=== PATIENT | female | born 1950 | race American Indian/Alaskan Native ===

== ENCOUNTER 2019-04-24 11:06 | Emergency (ER) | payer OTHER ==
[2019-04-24 11:25] VITALS: BMI 54.9
--- NOTE | 2019-04-24 12:31 | PDOC ---
Attending Attestation - Resident Resident Name: Christiano De La Paz - ED Attending Attestation I have performed the following: I have examined & evaluated the patient, The case was reviewed & discussed with the resident, I agree w/resident's findings & plan, Exceptions are as noted - HPI HPI: 04/24/19 12:29 68 yo F HTN, HLD, COPD, morbid obesity who present upon the recommendation of her PMD for assessment of her legs The patient has noted increased lower extremity edema for the past few weeks As a result, she had had blisters on the lower extremities A few weeks ago, she used a hunting knife to rupture the blisters Since then, the blisters have not fully healed She has used steroid creams, lidocaine cream and wrapped the legs Right leg seems more swollen than the left leg Pt contacted PMD who asked pt to come in to the ER to be assessed 04/24/19 12:32 - Physicial Exam PE: 04/24/19 12:30 GENERAL: The patient is in no acute distress, morbidly obese. HEAD: Normal EYES: PERRLA, EOMI, sclera anicteric, conjunctiva clear. ENT: Ears normal, nares patent, oropharynx clear without exudates. Moist mucous membranes. NECK: Normal range of motion, supple LUNGS: Breath sounds equal, clear to auscultation bilaterally. HEART:Regular rate and rhythm, JESUS ABDOMEN: Soft, nontender, No guarding, no rebound. EXTREMITIES: Normal range of motion, no edema. NEUROLOGICAL: Cranial nerves II through XII grossly intact. Normal speech. No focal neurological deficits. MUSCULOSKELETAL: no deformities SKIN: 3+ Edema right leg: several areas of open skin, clean bases, serosanguinous drainage, faint surrounding erythema of the skin Left leg with flesh colored macules around the leg, no erythema, no open skin, no drainage Feet are warm Cap refil <2sec Sensation in tact 04/24/19 12:57 - Medical Decision Making 04/24/19 13:01 68 yo F presenting with lower extremity edema, blisters which she ruptured which have not been healing No systemic signs of illness DD: Cellulitis, non healing wound (due to edema), DVT Will do: Labs, duplex, Contact PMD Will consider giving a dose of Lasix Will plan to discharge 04/24/19 14:58 U/S - no DVT Case reviewed with PMD: Requesting that pt be given additional Lasix Pt can be started on po abx He will see this patient in the office in follow up 04/24/19 16:33 Laboratory Tests 04/24/19 04/24/19 15:14 15:14 WBC 11.6 H Hgb 12.0 Hct 36.7 Plt Count 239 BUN 28.4 H Creatinine 0.8 B-Natriuretic Peptide 29.9
--- NOTE | 2019-04-24 13:06 | PDOC ---
History of Present Illness - General Stated Complaint: SENT BY PCP FOR WOUNDS,R/O INFECTION Time Seen by Provider: 04/24/19 12:09 - History of Present Illness Initial Comments: 04/24/19 12:55 HPI: 68 y/o F with hx of asthma, HLD, HTN, COPD, valvular regurg (doesnt know which valve) presents with right leg wound. She reports that over the past 2 months her LE edema has been worsening and not improved with her BP meds. She started developing blisters on her right leg filled with fluid and decided to pop them with an uncleaned hunting knife 2 weeks ago. Fluid and blood was evacuated but she denied any purulent drainage. She applied steroid and other creams and wrapped them with gauze but reported increased pruritis to the area. She states sometime her right leg appears more swollen than her left. She denies fever, chills, increased erythema, SOB, abd pain, n/v, foul odor Of note, she called her PCP yesterday for abx for her wound and when she stated she had "green" tinge he recommended immediate presentation to the ED PMHx: as noted above ROS: as noted SHx: Denies tobacco use; no alcohol use; no rec drugs Allergies: NKDA Past History - Past Medical History Allergies/Adverse Reactions: Allergies Allergy/AdvReac Type Severity Reaction Status Date / Time No Known Allergies Allergy Verified 04/24/19 11:26 Home Medications: Ambulatory Orders Fluticasone/Salmeterol [Advair 500-50 Diskus] PRN PRN 09/10/11 Montelukast Sodium [Singulair] 10 mg PO DAILY 09/10/11 Simvastatin [Zocor] 20 mg PO HS 09/10/11 Montelukast Na [Singulair -] 10 mg PO HS #0 tablet 11/27/12 Morphine *Sr* [Ms Contin -] 15 mg PO TID #0 tablet.sa 11/27/12 Paroxetine HCl [Paxil -] 20 mg PO DAILY #0 tablet 11/27/12 Pro Air 8.5 PRN PRN #0 11/27/12 Raloxifene HCl [Evista (Nf) -] 60 mg PO DAILY #0 tablet 11/27/12 Salmeterol/Fluticasone [Advair 500Mcg/50Mcg -] 1 inh IH DAILY PRN #0 inh Simvastatin [Zocor] 20 mg PO HS #0 tablet 11/27/12 levoFLOXacin [Levaquin] 250 mg PO DAILY #0 tablet 11/27/12 predniSONE [Deltasone -] 40 mg PO DAILY #0 tablet 11/27/12 Cephalexin [Keflex] 500 mg PO QID #27 capsule 04/24/19 Sulfamethoxazole/Trimethoprim [Bactrim Ds -] 2 tab PO BID #26 tablet 04/24/19 Anemia: Yes Asthma: Yes Cancer: No Cardiac Disorders: No CVA: No COPD: No CHF: No Dementia: No Diabetes: No GI Disorders: No Disorders: No HTN: Yes Hypercholesterolemia: Yes Liver Disease: No Seizures: No Thyroid Disease: No - Surgical History Abdominal Surgery: No Appendectomy: No Cardiac Surgery: No Cholecystectomy: No Lung Surgery: No Neurologic Surgery: No Orthopedic Surgery: Yes (RIGHT KNEE,LEFT SHOULDER) - Immunization History Immunization Up to Date: No - Suicide/Smoking/Psychosocial Hx Smoking Status: Yes Smoking History: Unknown if ever smoked Have you smoked in the past 12 months: No Number of Cigarettes Smoked Daily: 0 If you are a former smoker, when did you quit?: 1999 Information on smoking cessation initiated: No Hx Alcohol Use: No Drug/Substance Use Hx: No Substance Use Type: None Hx Substance Use Treatment: No Review of Systems - Review of Systems Comments:: 04/24/19 13:06 GENERAL/CONSTITUTIONAL: No fever or chills. No weakness. HEAD, EYES, EARS, NOSE AND THROAT: No change in vision. No ear pain or discharge. No sore throat. CARDIOVASCULAR: No chest pain or shortness of breath RESPIRATORY: No cough, wheezing, or hemoptysis. GASTROINTESTINAL: No nausea, vomiting, diarrhea or constipation. GENITOURINARY: No dysuria, frequency, or change in urination. MUSCULOSKELETAL: No joint or muscle swelling or pain. No neck or back pain. SKIN: + rash NEUROLOGIC: No headache, vertigo, loss of consciousness, or change in strength/ sensation. ENDOCRINE: No increased thirst. No abnormal weight change HEMATOLOGIC/LYMPHATIC: No anemia, easy bleeding, or history of blood clots. ALLERGIC/IMMUNOLOGIC: No hives or skin allergy. *Physical Exam - Vital Signs Last Vital Signs Temp Pulse Resp BP Pulse Ox 98.7 F 76 16 153/79 100 09/06/19 11:10 04/24/19 11:10 04/24/19 11:10 04/24/19 11:10 04/24/19 11:10 - Physical Exam Comments: 04/24/19 13:06 GENERAL: Awake, alert, and fully oriented, no acute distress, morbidly obese HEAD: No signs of trauma, normocephalic, atraumatic EYES: EOMI, sclera anicteric, conjunctiva clear ENT: Auricles normal inspection, hearing grossly normal, nares patent, oropharynx clear without exudates. Moist mucosa NECK: Normal ROM, no lymphadenopathy LUNGS: No increased work of breathing, symmetrical chest rise, clear to auscultation bilaterally, with coarse breath sounds in BL lower lung patiño HEART: Regular rate and rhythm, normal S1 and S2, systolic murmur, peripheral pulses 2+ and equal bilaterally. ABDOMEN: Soft, nontender, nondistended, normoactive bowel sounds. No guarding, no rebound. No masses EXTREMITIES: FROM NEUROLOGICAL: Cranial nerves II through XII grossly intact. Normal speech, normal gait, no focal sensorimotor deficits SKIN: R LE with skin breakdown over anterolateral leg as well as on posterior aspect with surrounding erythema, no active drainage or purulence, no lymphatic streaking, 2+ pulses throughout, 2+ pitting pedal edema, mildly tender to palpation ED Treatment Course - LABORATORY CBC & Chemistry Diagram: 04/24/19 15:14 04/24/19 15:14 Medical Decision Making - Medical Decision Making 04/24/19 13:10 68 y/o F with hx of asthma, HLD, HTN, COPD, valvular regurg (doesnt know which valve) presents with right leg wound x2 weeks after attempting to evacuate blisters with a hunting knife. -cbc, cmp, bnp -BL duplex -will treat empirically for cellulitis as well as administer Tdap booster *DC/Admit/Observation/Transfer Diagnosis at time of Disposition: Cellulitis Qualifiers: Site of cellulitis: extremity Site of cellulitis of extremity: lower extremity Laterality: right Qualified Code(s): L03.115 - Cellulitis of right lower limb - Discharge Dispostion Disposition: HOME Condition at time of disposition: Stable Decision to Admit order: No - Prescriptions Prescriptions: Cephalexin [Keflex] 500 mg PO QID #27 capsule Sulfamethoxazole/Trimethoprim [Bactrim Ds -] 2 tab PO BID #26 tablet - Referrals Referrals: Kevin Berkowitz [Primary Care Provider] - - Patient Instructions Printed Discharge Instructions: DI for Cellulitis -- Adult Additional Instructions: Additional Instructions: Please return to the emergency department with any new or worsening symptoms or concerns including redness or your right leg, worsening swelling of the right leg, significant pain on your leg, fainting, increased white drainage from the wounds. Please follow up with your primary care physician on your scheduled followup visit on SaturdayApr 28 Please take the 2 antibiotic medications as prescribed. Please keep your legs elevated whenever able. Please keep the wounds clean and dry and open to air. If wounds begin to drain clear fluid, you may apply gauze. - Post Discharge Activity
[2019-04-24 15:28] LABS: BASO % 0.6 % (0-2.0); HEMATOCRIT 36.7 % (32.4-45.2); MCH 30.6 pg (25.7-33.7); MCHC 32.6 g/dl (32.0-36.0); MEAN CELL VOLUME 93.7 fl (80-96); MEAN PLT VOLUME 8.8 fl (7.5-11.1); MONO % 6.9 % (3.8-10.2); NEUT % 65.5 % (42.8-82.8); PLATELET COUNT 239 K/MM3 (134-434); RBC 3.91 M/mm3 (3.60-5.2); RDW 14.1 % (11.6-15.6); WHITE BLOOD COUNT 11.6 K/mm3 (4.0-10.0)
[2019-04-24 16:07] LABS: BILIRUBIN,TOTAL 0.5 mg/dL (0.2-1); BLOOD UREA NITROGEN 28.4 mg/dL (7-18); CALCIUM 9.2 mg/dL (8.5-10.1); CREATININE 0.8 mg/dL (0.55-1.3); N-TERMINAL BNP 29.9 pg/ml (5-125); POTASSIUM 3.7 mmol/L (3.5-5.1); TOT PROT 7.6 g/dl (6.4-8.2)
[2019-04-24] MEDS ORDERED: SULFAMETHOXAZOLE/TRIMETHOPRIM 800MG/160MG D.S. TABLET PO ONE (16:18)
[2019-04-24] MEDS ORDERED: CEPHALEXIN MONOHYDRATE 500 MG CAPSULE (UD) PO ONE (16:19)
[2019-04-24] MEDS ORDERED: FUROSEMIDE 20 MG TABLET (FP) PO ONE (16:30)
[2019-04-24] MEDS ORDERED: DIPHTH,PERTUSS(ACELL),TET 0.5 ML DISP.SYRIN IM ONE ×2 (16:32→17:05)
[2019-04-24] MEDS ORDERED: FUROSEMIDE 40 MG TABLET (FP) ONE (17:02)
[2019-04-24] MEDS ORDERED: CEPHALEXIN MONOHYDRATE 500 MG CAPSULE (UD) ONE (17:02)
[2019-04-24] MEDS ORDERED: SULFAMETHOXAZOLE/TRIMETHOPRIM 800MG/160MG D.S. TABLET ONE (17:03)
[2019-04-24 17:23] VITALS: BP 138/67; PULSE 77; TEMP 97.7
== END 2019-04-24 17:24 | disposition home or self-care (01) ==
LOC: JER 11:06
PROC: 3E0234Z Introduction of Serum, Toxoid and Vaccine into Muscle, Percutaneous Approach (ICD-10-PCS; principal; 2019-04-24)
DX: L03.115 Cellulitis of right lower limb (principal); I10 Essential (primary) hypertension; E78.5 Hyperlipidemia, unspecified; J44.9 Chronic obstructive pulmonary disease, unspecified; J45.909 Unspecified asthma, uncomplicated
CPT/HCPCS: 36415; 80053; 83880; 85025; 90471; 90715; 93970-TC; 99282-25

== ENCOUNTER 2020-06-28 04:54 | Day surgery (SDC) | payer OTHER ==
[2020-06-27 12:22] VITALS: BMI 49.1
[2020-06-28] MEDS ORDERED: MIDAZOLAM HCL 2 MG/2 ML SINGLE DOSE VIAL ONE ×2 (12:47→14:57)
[2020-06-28] MEDS ORDERED: ceFAZolin SODIUM 1 GM VIAL ONE (12:50)
[2020-06-28] MEDS ORDERED: SODIUM CHLORIDE 0.9% P/F 10 ML VIAL IJ ONE (12:50)
[2020-06-28] MEDS ORDERED: LIDOCAINE HCL 1%, 10 MG/ML (20ML VIAL) ONE (14:37)
[2020-06-28] MEDS ORDERED: BUPIVACAINE HCL/PF 0.25% (2.5MG/ML) 10 ML VIAL ONE ×2 (14:37→15:32)
[2020-06-28] MEDS ORDERED: ceFAZolin SODIUM 1 GM VIAL IVPB ONE (14:58)
[2020-06-28] MEDS ORDERED: BUPIVACAINE HCL/PF 0.25% (2.5MG/ML) 10 ML VIAL IJ ONE ×2 (16:00→16:25)
[2020-06-28] MEDS ORDERED: LIDOCAINE HCL 1%, 10 MG/ML (20ML VIAL) NR ONE (16:25)
[2020-06-28] MEDS ORDERED: morphine SULFATE/PF 0.5 MG/ML (2cc Syringe - QUVA) ONE (16:43)
[2020-06-28] MEDS ORDERED: KETOROLAC TROMETHAMINE 30 MG/1 ML VIAL ONE (16:55)
[2020-06-28] MEDS ORDERED: KETOROLAC TROMETHAMINE 30 MG/1 ML VIAL IVPUSH ONE (16:58)
[2020-06-28] MEDS ORDERED: oxyCODONE HCL 5 MG TABLET PO PRN (17:51)
[2020-06-28] MEDS ORDERED: ONDANSETRON 4 MG/2 ML VIAL IVPUSH PRN (17:51)
[2020-06-28] MEDS ORDERED: PROMETHAZINE HCL 25 MG/1 ML VIAL IVPUSH PRN (17:51)
[2020-06-28] MEDS ORDERED: oxyCODONE HCL 5 MG TABLET ONE (17:53)
[2020-06-28] MEDS ORDERED: LACTATED RINGERS SOLUTION 1,000 ML IV SCH (18:00)
[2020-06-28 20:31] VITALS: BP 144/68; PULSE 89; TEMP 98
== END 2020-06-28 19:55 | disposition home or self-care (01) ==
LOC: JASU-SURG 04:54
PROVIDERS: ATTEND Physical Medicine & Rehabilitation
PROC: 01HY3MZ Insertion of Neurostimulator Lead into Peripheral Nerve, Percutaneous Approach (ICD-10-PCS; principal; 2020-06-28 11:30)
DX: M54.16 Radiculopathy, lumbar region (principal); M48.061 Spinal stenosis, lumbar region without neurogenic claudication; M54.5 Low back pain
CPT/HCPCS: 63650; C1897; 76000-TC-FY; 94760

== ENCOUNTER 2022-10-27 16:00 | Inpatient (IN) | payer OTHER ==
[2022-10-27] MEDS ORDERED: ACETAMINOPHEN 1000 MG/100 ML BAG IVPB ONE (18:05)
[2022-10-27] MEDS ORDERED: ACETAMINOPHEN INJECTION 100 ML IVPB ONE (18:13)
[2022-10-27] MEDS ORDERED: ALBUTEROL SO4 2.5/IPRATROPIUM 0.5 INH SOL 3 ML VIAL.NEB. NEB ONE (18:42)
[2022-10-27 18:57] LABS: BASO % 0.2 % (0-2.0); EOS % 0.1 % (0-4.5); HEMATOCRIT 32.9 % (32.4-45.2); HEMOGLOBIN 10.3 GM/dL (10.7-15.3); LYMPH % 7.9 % (8-40); MCHC 31.4 g/dl (32.0-36.0); MEAN CELL VOLUME 86.1 fl (80-96); MEAN PLT VOLUME 8.2 fl (7.5-11.1); MONO % 10.5 % (3.8-10.2); NEUT % 81.3 % (42.8-82.8); PLATELET COUNT 329 10^3/uL (134-434); RBC 3.82 M/mm3 (3.60-5.2); RDW 15.1 % (11.6-15.6); WHITE BLOOD COUNT 20.5 K/mm3 (4.0-10.0)
[2022-10-27 19:02] LABS: INR 1.48 (0.83-1.09); PROTHROMBIN TIME (PATIENT) 17.1 SEC (9.7-13.0)
[2022-10-27 19:05] LABS: ACTIVATED PTT 25.6 SECONDS (25.2-36.5); CALCIUM 8.4 mg/dL (8.5-10.1)
[2022-10-27 19:06] LABS: ALBUMIN 2.8 g/dl (3.4-5.0); BLOOD UREA NITROGEN 36.1 mg/dL (7-18)
[2022-10-27 19:09] LABS: CREATININE 1.2 mg/dL (0.55-1.3)
[2022-10-27 19:10] LABS: TOT PROT 7.2 g/dl (6.4-8.2)
[2022-10-27 19:14] LABS: N-TERMINAL BNP 840.4 pg/ml (5-125)
[2022-10-27] MEDS ORDERED: VANCOMYCIN 1 GM in D5W (PRE-DOCKED) 1,000 MG/250 ML IVPB ONE (19:19)
[2022-10-27] MEDS ORDERED: PIPERACILLIN/TAZOB 4.5 GM 4.5 GM in DEXTROSE 5%-WATER 100 ML IVPB ONE (19:19)
[2022-10-27] MEDS ORDERED: POTASSIUM CHLORIDE ORAL LIQUID 20 MEQ/15 ML PO ONE (19:25)
[2022-10-27 19:31] LABS: ANISOCYTOSIS 1+; MACROCYTOSIS 0
[2022-10-27 21:56] LABS: ERYTHROCYTE SEDIMENTATION RATE 94 mm/hr (0-30)
[2022-10-27] MEDS ORDERED: VANCOMYCIN/WATER FOR INJ (PEG) 1,000 MG/200 ML BAG IVPB ONE (22:31)
[2022-10-27] MEDS ORDERED: POTASSIUM CHLORIDE ORAL LIQUID 20 MEQ/15 ML ONE (22:31)
[2022-10-27] MEDS ORDERED: SODIUM CHLORIDE 0.9% 500 ML INFUS.BAG IV ONE ×2 (22:35→22:37)
[2022-10-27 22:37] LABS: EPI CELLS >36 /uL (0-25.1); HYALINE CASTS 2 /uL (0-3.1); PH,URINE 5.5 (5.0-8.0); URINE APPEARANCE TURBID; URINE BACTERIA >9,000 /uL (0-1359); URINE BILIRUBIN NEGATIVE (NEGATIVE); URINE COLOR DK YELLOW; URINE GLUCOSE (UA) NEGATIVE (NEGATIVE); URINE KETONE NEGATIVE (NEGATIVE); URINE LEUK ESTERASE 2+ (NEGATIVE); URINE NITRITE POSITIVE (NEGATIVE); URINE PROTEIN 1+ (NEGATIVE); URINE WBC 3034 /uL (0-25.8)
[2022-10-27 22:46] LABS: PHENCYCLIDINE,URINE NEGATIVE (NEGATIVE)
[2022-10-27 22:47] LABS: COCAINE, UR NEGATIVE (NEGATIVE); URINE BARBITURATES NEGATIVE (NEGATIVE)
[2022-10-27 22:48] LABS: METHADONE, UR NEGATIVE (NEGATIVE); OPIATES, URI POSITIVE (NEGATIVE); URINE AMPHETAMINES NEGATIVE (NEGATIVE); URINE BENZODIAZEPINES NEGATIVE (NEGATIVE)
[2022-10-27 22:51] LABS: URINE CRYSTALS NONE SEEN /hpf; URINE RBC 44.6 /uL (0-23.9); YEAST NONE SEEN (NEGATIVE)
[2022-10-28] MEDS ORDERED: LEVALBUTEROL HCL 0.63 MG/3 ML VIAL.NEB. IH PRN (00:30)
[2022-10-28] MEDS: methylPREDNISolone NA SUCC 125 MG/2 ML VIAL IVPB SCH ×2 (00:58→09:53)
[2022-10-28] MEDS ORDERED: methylPREDNISolone NA SUCC 40 MG/1 ML VIAL ONE (00:59)
[2022-10-28] MEDS: PIPERACILLIN/TAZOB 3.375 GM 3.375 GM in DEXTROSE 5%-WATER - 50 ML IVPB SCH ×3 (03:59→19:19)
[2022-10-28] MEDS ORDERED: PIPERACILLIN/TAZOB 3.375 GM 3.375 GM/50 ML BAG IVPB ONE ×3 (04:02→18:25)
[2022-10-28] MEDS ORDERED: HEPARIN NA (PORCINE) 5,000 UNITS/ML 1ML VIAL SQ SCH (06:00)
[2022-10-28] MEDS ORDERED: PREGABALIN 25 MG CAPSULE ONE ×2 (06:22→14:15)
[2022-10-28] MEDS: PREGABALIN 25 MG CAPSULE PO SCH ×3 (06:23→21:39)
[2022-10-28] MEDS ORDERED: HEPARIN NA (PORCINE) 5,000 UNITS/ML 1ML VIAL ONE (06:24)
[2022-10-28 07:11] LABS: HEMATOCRIT 31.1 % (32.4-45.2); MCH 27.4 pg (25.7-33.7); MEAN CELL VOLUME 85.4 fl (80-96); PLATELET COUNT 304 10^3/uL (134-434); RBC 3.65 M/mm3 (3.60-5.2)
[2022-10-28 07:37] LABS: CALCIUM 8.2 mg/dL (8.5-10.1)
[2022-10-28 07:38] LABS: ALBUMIN 2.4 g/dl (3.4-5.0); BLOOD UREA NITROGEN 31.2 mg/dL (7-18); MAGNESIUM 1.9 mg/dL (1.8-2.4)
[2022-10-28 07:41] LABS: CREATININE 0.8 mg/dL (0.55-1.3); PHOSPHOROUS 3.2 mg/dL (2.5-4.9)
[2022-10-28 07:42] LABS: TOT PROT 6.7 g/dl (6.4-8.2)
[2022-10-28 07:43] LABS: BILIRUBIN,TOTAL 0.9 mg/dL (0.2-1)
[2022-10-28] MEDS ORDERED: PIPERACILLIN/TAZOB 3.375 GM 3.375 GM in DEXTROSE 5%-WATER - 50 ML IVPB SCH (08:00)
[2022-10-28] MEDS ORDERED: CYCLOBENZAPRINE HCL 10 MG TABLET (FP) ONE (08:39)
[2022-10-28] MEDS ORDERED: PANTOPRAZOLE 40 MG TABLET PO ONE (08:39)
[2022-10-28] MEDS ORDERED: methylPREDNISolone NA SUCC 125 MG/2 ML VIAL ONE (08:40)
[2022-10-28] MEDS: PANTOPRAZOLE 40 MG TABLET PO SCH (09:52)
[2022-10-28] MEDS: CYCLOBENZAPRINE HCL 10 MG TABLET (FP) PO SCH ×2 (09:52→21:40)
[2022-10-28] MEDS ORDERED: VANCOMYCIN 1 GM in D5W (PRE-DOCKED) 1,000 MG/250 ML IVPB ONE (10:00)
[2022-10-28] MEDS ORDERED: VANCOMYCIN 1 GM in D5W (PRE-DOCKED) 1,000 MG/250 ML IVPB SCH (10:00)
[2022-10-28] MEDS ORDERED: VANCOMYCIN/WATER 2 GRAMS 2,000 MG/400 ML PIGGYBACK IVPB SCH ×2 (10:00)
[2022-10-28] MEDS ORDERED: FUROSEMIDE 40 MG/4 ML INJECTABLE VIAL IVPUSH ONE (14:00)
[2022-10-28] MEDS ORDERED: PREGABALIN 50 MG CAPSULE ONE (14:15)
[2022-10-28] MEDS ORDERED: ASPIRIN 81 MG CHEWABLE TABLETS ONE (14:16)
[2022-10-28] MEDS ORDERED: FUROSEMIDE 40 MG/4 ML INJECTABLE VIAL ONE (14:16)
[2022-10-28] MEDS ORDERED: LACTATED RINGERS SOLUTION 1,000 ML/1,000 ML INFUS.BAG IV SCH (15:00)
[2022-10-28] MEDS: ASPIRIN 81 MG CHEWABLE TABLETS PO SCH (15:00)
[2022-10-28] MEDS: SENNOSIDES 8.6MG TABLET (FP) PO SCH (21:39)
[2022-10-28] MEDS: NORTRIPTYLINE HCL 25 MG CAPSULE PO SCH (21:39)
[2022-10-28] MEDS: ATORVASTATIN CA 20 MG TABLET (FP) PO SCH (21:40)
[2022-10-29] MEDS: PIPERACILLIN/TAZOB 3.375 GM 3.375 GM in DEXTROSE 5%-WATER - 50 ML IVPB SCH ×3 (02:19→18:57)
[2022-10-29] MEDS: PREGABALIN 25 MG CAPSULE PO SCH ×2 (05:30→14:27)
[2022-10-29] MEDS: COLLAGENASE CLOSTRIDIUM HIST. 30 GRAMS TUBE TP SCH (10:00)
[2022-10-29] MEDS: PANTOPRAZOLE 40 MG TABLET PO SCH (10:36)
[2022-10-29] MEDS: ASPIRIN 81 MG CHEWABLE TABLETS PO SCH (10:36)
[2022-10-29] MEDS: CYCLOBENZAPRINE HCL 10 MG TABLET (FP) PO SCH ×2 (10:37→21:14)
[2022-10-29] MEDS: ENOXAPARIN NA (PORCINE) 40 MG/0.4 ML DISP.SYRIN SQ SCH (10:37)
[2022-10-29] MEDS: VANCOMYCIN/WATER FOR INJ (PEG) 1,000 MG/200 ML BAG IVPB SCH ×2 (10:38→21:17)
[2022-10-29] MEDS: methylPREDNISolone NA SUCC 125 MG/2 ML VIAL IVPB SCH (10:38)
[2022-10-29] MEDS ORDERED: FUROSEMIDE 40 MG/4 ML INJECTABLE VIAL IVPUSH ONE (12:15)
[2022-10-29] MEDS ORDERED: LIDOCAINE 5% TOPICAL PATCH TP PRN ×2 (14:24→14:29)
[2022-10-29 17:35] VITALS: BMI 49.2
[2022-10-29] MEDS: AMINO ACIDS/PROTEIN HYDROLYS 30 ML LIQUID.PKT PO SCH (18:00)
[2022-10-29] MEDS: NORTRIPTYLINE HCL 25 MG CAPSULE PO SCH (21:14)
[2022-10-29] MEDS: ATORVASTATIN CA 20 MG TABLET (FP) PO SCH (21:14)
[2022-10-29] MEDS: PREGABALIN 75 MG CAPSULE PO SCH (21:14)
[2022-10-29] MEDS: SENNOSIDES 8.6MG TABLET (FP) PO SCH (21:14)
[2022-10-29] MEDS: LIDOCAINE PATCH REMOVAL MC SCH (22:06)
[2022-10-30] MEDS: PIPERACILLIN/TAZOB 3.375 GM 3.375 GM in DEXTROSE 5%-WATER - 50 ML IVPB SCH ×2 (01:30→09:08)
[2022-10-30] MEDS: PREGABALIN 75 MG CAPSULE PO SCH ×3 (06:26→22:34)
[2022-10-30 08:23] LABS: HEMATOCRIT 27.2 % (32.4-45.2); HEMOGLOBIN 8.9 GM/dL (10.7-15.3); MCH 28.5 pg (25.7-33.7); MCHC 32.6 g/dl (32.0-36.0); MEAN CELL VOLUME 87.5 fl (80-96); MEAN PLT VOLUME 8.1 fl (7.5-11.1); PLATELET COUNT 323 10^3/uL (134-434); RBC 3.11 M/mm3 (3.60-5.2); WHITE BLOOD COUNT 13.9 K/mm3 (4.0-10.0)
[2022-10-30 08:34] LABS: CALCIUM 8.5 mg/dL (8.5-10.1)
[2022-10-30 08:35] LABS: ALBUMIN 2.2 g/dl (3.4-5.0); BLOOD UREA NITROGEN 40.2 mg/dL (7-18)
[2022-10-30 08:37] LABS: BILIRUBIN,TOTAL 0.4 mg/dL (0.2-1)
[2022-10-30 08:38] LABS: CREATININE 0.8 mg/dL (0.55-1.3); PHOSPHOROUS 2.8 mg/dL (2.5-4.9)
[2022-10-30 08:39] LABS: TOT PROT 6.2 g/dl (6.4-8.2)
[2022-10-30] MEDS: ENOXAPARIN NA (PORCINE) 40 MG/0.4 ML DISP.SYRIN SQ SCH (09:08)
[2022-10-30] MEDS: ASPIRIN 81 MG CHEWABLE TABLETS PO SCH (09:08)
[2022-10-30] MEDS: PANTOPRAZOLE 40 MG TABLET PO SCH (09:08)
[2022-10-30] MEDS: CYCLOBENZAPRINE HCL 10 MG TABLET (FP) PO SCH ×2 (09:08→21:56)
[2022-10-30] MEDS: AMINO ACIDS/PROTEIN HYDROLYS 30 ML LIQUID.PKT PO SCH ×3 (09:08→18:08)
[2022-10-30] MEDS: VANCOMYCIN/WATER FOR INJ (PEG) 1,000 MG/200 ML BAG IVPB SCH ×2 (09:08→22:35)
[2022-10-30] MEDS: methylPREDNISolone NA SUCC 125 MG/2 ML VIAL IVPB SCH (09:16)
[2022-10-30] MEDS ORDERED: MULTIVITAMINS (DAILY MVI) TABLET (FP) PO SCH (10:00)
[2022-10-30] MEDS ORDERED: ASCORBIC ACID 250 MG TABLET (FP) PO SCH (10:00)
[2022-10-30] MEDS ORDERED: LOSARTAN POTASSIUM 50 MG TABLET PO SCH (12:15)
[2022-10-30] MEDS: COLLAGENASE CLOSTRIDIUM HIST. 30 GRAMS TUBE TP SCH ×2 (12:27→12:30)
[2022-10-30] MEDS: oxyCODONE HCL 5 MG TABLET PO PRN ×2 (12:36→21:57)
[2022-10-30] MEDS ORDERED: ERTAPENEM SODIUM 1 GM in SODIUM CHLORIDE 50 ML IVPB SCH ×2 (14:00→14:15)
[2022-10-30] MEDS ORDERED: FUROSEMIDE 40 MG TABLET (FP) PO SCH (14:00)
[2022-10-30] MEDS: NORTRIPTYLINE HCL 25 MG CAPSULE PO SCH (21:56)
[2022-10-30] MEDS: ATORVASTATIN CA 20 MG TABLET (FP) PO SCH (22:00)
[2022-10-30] MEDS: LIDOCAINE PATCH REMOVAL MC SCH (22:33)
[2022-10-30] MEDS: SENNOSIDES 8.6MG TABLET (FP) PO SCH (22:34)
[2022-10-31 00:09] VITALS: BP 160/87; PULSE 99; RESP 20; TEMP 99.2
[2022-10-31] MEDS ORDERED: ERTAPENEM SODIUM 1 GM in SODIUM CHLORIDE 50 ML IVPB SCH (10:00)
== END 2022-10-31 02:30 | disposition short-term general hospital (02) | DRG 871 ==
LOC: JER 16:00 → JERBED 18:25 → J4W 10-28 20:00
PROVIDERS: ADMIT Internal Medicine; ATTEND Internal Medicine
DX: A41.89 Other specified sepsis (principal); I50.33 Acute on chronic diastolic (congestive) heart failure; L89.623 Pressure ulcer of left heel, stage 3; L89.323 Pressure ulcer of left buttock, stage 3; M62.82 Rhabdomyolysis; I24.8 Other forms of acute ischemic heart disease; G95.20 Unspecified cord compression; Z68.42 Body mass index [BMI] 45.0-49.9, adult; G83.4 Cauda equina syndrome; L03.317 Cellulitis of buttock; N39.0 Urinary tract infection, site not specified; I96 Gangrene, not elsewhere classified; R41.82 Altered mental status, unspecified; I35.0 Nonrheumatic aortic (valve) stenosis; J44.9 Chronic obstructive pulmonary disease, unspecified; E66.01 Morbid (severe) obesity due to excess calories; E78.5 Hyperlipidemia, unspecified; M48.061 Spinal stenosis, lumbar region without neurogenic claudication; R79.89 Other specified abnormal findings of blood chemistry; E87.6 Hypokalemia; M21.372 Foot drop, left foot; M21.371 Foot drop, right foot; R29.6 Repeated falls; K76.1 Chronic passive congestion of liver; I11.0 Hypertensive heart disease with heart failure; M54.16 Radiculopathy, lumbar region; F41.9 Anxiety disorder, unspecified; R00.0 Tachycardia, unspecified; M43.02 Spondylolysis, cervical region; I27.20 Pulmonary hypertension, unspecified; B96.20 Unspecified Escherichia coli [E. coli] as the cause of diseases classified elsewhere; Z86.718 Personal history of other venous thrombosis and embolism
CPT/HCPCS: 0241U-QW; 36415; 70450-TC; 71045-TC-FY; 72131-TC; 80053; 80307; 81003; 82550; 82553; 82607; 83036; 83735; 83825; 83880; 84100; 84443; 84484; 85025; 85027; 85610; 85651; 85730; 86140; 87040; 87070; 87086; 87186; 87205; 93005; 93010; 93306-TC; 93970-TC; 97162-GP; 99285-25; C9803-CS; J1644; U0003; U0005

== ENCOUNTER 2023-07-07 04:22 | Inpatient (IN) | payer OTHER ==
[2023-07-07] MEDS ORDERED: VANCOMYCIN 1 GRAM (PRE-DOCKED) 1,000 MG/250 ML BAG IVPB ONE (05:01)
[2023-07-07] MEDS ORDERED: VANCOMYCIN HCL 1,500 MG in DEXTROSE 5%-WATER - 500 ML IVPB ONE (05:01)
[2023-07-07] MEDS ORDERED: PIPERACILLIN/TAZOB 3.375 GM 3.375 GM in DEXTROSE 5%-WATER - 50 ML IVPB ONE (05:01)
[2023-07-07] MEDS ORDERED: PIPERACILLIN/TAZOB 3.375 GM 3.375 GM/50 ML BAG IVPB ONE (05:02)
[2023-07-07] MEDS ORDERED: ACETAMINOPHEN 1000 MG/100 ML BAG IVPB ONE (05:39)
[2023-07-07] MEDS ORDERED: ACETAMINOPHEN INJECTION 100 ML IVPB ONE (05:58)
[2023-07-07 06:26] LABS: HEMATOCRIT 38.9 % (32.4-45.2); HEMOGLOBIN 12.2 GM/dL (10.7-15.3); MCH 26.5 pg (25.7-33.7); MCHC 31.5 g/dl (32.0-36.0); MEAN CELL VOLUME 84.4 fl (80-96); MEAN PLT VOLUME 8.6 fl (7.5-11.1); PLATELET COUNT 545 10^3/uL (134-434); RBC 4.61 M/mm3 (3.60-5.2); RDW 15.7 % (11.6-15.6)
[2023-07-07 06:43] LABS: POTASSIUM 4.4 mmol/L (3.5-5.1)
[2023-07-07 06:45] LABS: ALBUMIN 3.6 g/dl (3.4-5.0); BLOOD UREA NITROGEN 69.7 mg/dL (7-18); CALCIUM 9.2 mg/dL (8.5-10.1)
[2023-07-07] MEDS ORDERED: SODIUM CHLORIDE 0.9% 500 ML INFUS.BAG IV ONE (06:46)
[2023-07-07 06:48] LABS: CREATININE 1.4 mg/dL (0.55-1.3)
[2023-07-07 06:49] LABS: BILIRUBIN,TOTAL 0.7 mg/dL (0.2-1); TOT PROT 8.4 g/dl (6.4-8.2)
[2023-07-07] MEDS: VANCOMYCIN/WATER FOR INJ (PEG) 1,000 MG/200 ML BAG IVPB SCH (07:00)
[2023-07-07 08:46] LABS: ERYTHROCYTE SEDIMENTATION RATE 77 mm/hr (0-30)
[2023-07-07 09:01] LABS: ANISOCYTOSIS 2+; MACROCYTOSIS 0; TEAR DROP CELLS 1+
[2023-07-07] MEDS ORDERED: ACETAMINOPHEN 325 MG TABLET (FP) PO PRN (09:13)
[2023-07-07] MEDS ORDERED: ALBUTEROL SO4 0.083% IH SOL 2.5 MG/3 ML VIAL.NEB. NEB PRN (09:19)
[2023-07-07 09:22] LABS: EPI CELLS >36 /uL (0-25.1); HYALINE CASTS 2 /uL (0-3.1); URINE APPEARANCE CLOUDY; URINE BACTERIA >9,000 /uL (0-1359); URINE BILIRUBIN NEGATIVE (NEGATIVE); URINE COLOR YELLOW; URINE GLUCOSE (UA) NEGATIVE (NEGATIVE); URINE KETONE NEGATIVE (NEGATIVE); URINE LEUK ESTERASE 1+ (NEGATIVE); URINE NITRITE NEGATIVE (NEGATIVE); URINE PROTEIN NEGATIVE (NEGATIVE); URINE RBC 14 /uL (0-23.9); URINE UROBILINOGEN 0.2 mg/dL (0.2-1.0); URINE WBC 56 /uL (0-25.8)
[2023-07-07] MEDS: LACTATED RINGERS SOLUTION 1,000 ML IV SCH (09:47)
[2023-07-07] MEDS: amLODIPine BESYLATE 5 MG TABLET (FP) PO SCH (10:15)
[2023-07-07] MEDS: UMECLIDINIUM/VILANTEROL (ANORO) 62.5/25 MCG INHALER IH SCH (10:53)
[2023-07-07] MEDS: NORTRIPTYLINE HCL 25 MG CAPSULE PO SCH (10:54)
[2023-07-07] MEDS: RIFAXIMIN 550 MG TABLET PO SCH ×2 (10:54→22:20)
[2023-07-07] MEDS: PANTOPRAZOLE 40 MG TABLET PO SCH (10:55)
[2023-07-07] MEDS: APIXABAN 5 MG TABLET PO SCH ×2 (10:55→22:20)
[2023-07-07] MEDS ORDERED: PANTOPRAZOLE 40 MG TABLET PO ONE (10:55)
[2023-07-07] MEDS ORDERED: APIXABAN 5 MG TABLET ONE (10:55)
[2023-07-07] MEDS: POLYETHYLENE GLYCOL (HEALTHYLAX) 3350 17 GM PACKET PO SCH (10:56)
[2023-07-07] MEDS: LIPASE/PROTEASE/AMYLASE 36,000 UNIT CAPSULE PO SCH ×2 (11:17→17:16)
[2023-07-07] MEDS ORDERED: HEPARIN NA (PORCINE) 5,000 UNITS/ML 1ML VIAL SQ SCH (14:00)
[2023-07-07] MEDS: oxyCODONE HCL 5 MG TABLET PO PRN ×2 (17:12→23:40)
[2023-07-07] MEDS: PIPERACILLIN/TAZOB 3.375 GM 3.375 GM in DEXTROSE 5%-WATER - 50 ML IVPB SCH (18:30)
[2023-07-07] MEDS ORDERED: FLU VACCINE (FLULAVAL) PF 60 MCG/0.5 ML SYRINGE 2023-2024 IM ONE (20:00)
[2023-07-08] MEDS: PIPERACILLIN/TAZOB 3.375 GM 3.375 GM in DEXTROSE 5%-WATER - 50 ML IVPB SCH ×3 (01:22→17:14)
[2023-07-08] MEDS: LACTATED RINGERS SOLUTION 1,000 ML IV SCH ×2 (01:26→10:00)
[2023-07-08] MEDS: VANCOMYCIN/WATER FOR INJ (PEG) 1,000 MG/200 ML BAG IVPB SCH (06:04)
[2023-07-08 08:52] LABS: BASO % 0.2 % (0-2.0); HEMATOCRIT 27.4 % (32.4-45.2); LYMPH % 14.2 % (8-40); MCH 26.9 pg (25.7-33.7); MCHC 32.6 g/dl (32.0-36.0); MEAN CELL VOLUME 82.3 fl (80-96); MEAN PLT VOLUME 7.9 fl (7.5-11.1); MONO % 12.8 % (3.8-10.2); NEUT % 71.8 % (42.8-82.8); PLATELET COUNT 356 10^3/uL (134-434); RBC 3.33 M/mm3 (3.60-5.2); RDW 15.7 % (11.6-15.6); WHITE BLOOD COUNT 14.1 K/mm3 (4.0-10.0)
[2023-07-08 08:54] LABS: INR 1.72 (0.83-1.09); PROTHROMBIN TIME (PATIENT) 19.9 SEC (9.7-13.0)
[2023-07-08] MEDS: LIPASE/PROTEASE/AMYLASE 36,000 UNIT CAPSULE PO SCH ×3 (08:54→18:24)
[2023-07-08] MEDS: TAMSULOSIN HCL 0.4 MG CAP PO SCH (08:54)
[2023-07-08 09:06] LABS: POTASSIUM 3.8 mmol/L (3.5-5.1)
[2023-07-08 09:10] LABS: MAGNESIUM 2.2 mg/dL (1.8-2.4)
[2023-07-08] MEDS: oxyCODONE HCL 5 MG TABLET PO PRN (09:11)
[2023-07-08 09:13] LABS: CREATININE 0.5 mg/dL (0.55-1.3)
[2023-07-08 09:14] LABS: BILIRUBIN,TOTAL 0.8 mg/dL (0.2-1)
[2023-07-08] MEDS: NORTRIPTYLINE HCL 25 MG CAPSULE PO SCH (09:15)
[2023-07-08] MEDS: RIFAXIMIN 550 MG TABLET PO SCH ×2 (09:15→22:50)
[2023-07-08] MEDS: PANTOPRAZOLE 40 MG TABLET PO SCH (09:15)
[2023-07-08] MEDS: POLYETHYLENE GLYCOL (HEALTHYLAX) 3350 17 GM PACKET PO SCH (09:15)
[2023-07-08 09:19] LABS: ALBUMIN 2.2 g/dl (3.4-5.0); BLOOD UREA NITROGEN 28.5 mg/dL (7-18); N-TERMINAL BNP 2336.4 pg/ml (5-125); TOT PROT 5.7 g/dl (6.4-8.2)
[2023-07-08] MEDS: APIXABAN 5 MG TABLET PO SCH ×2 (09:44→22:34)
[2023-07-08] MEDS: amLODIPine BESYLATE 5 MG TABLET (FP) PO SCH (09:45)
[2023-07-08] MEDS: UMECLIDINIUM/VILANTEROL (ANORO) 62.5/25 MCG INHALER IH SCH (09:47)
[2023-07-08] MEDS: BACITRACIN ZINC 15 GM TUBE TOPICAL OINTMENT TP SCH (17:14)
[2023-07-08] MEDS: COLCHICINE 0.6 MG TAB PO SCH (22:34)
[2023-07-09] MEDS: PIPERACILLIN/TAZOB 3.375 GM 3.375 GM in DEXTROSE 5%-WATER - 50 ML IVPB SCH ×3 (01:27→17:59)
[2023-07-09] MEDS: LACTATED RINGERS SOLUTION 1,000 ML IV SCH (05:45)
[2023-07-09] MEDS: oxyCODONE HCL 5 MG TABLET PO PRN ×2 (06:56→15:19)
[2023-07-09] MEDS: TAMSULOSIN HCL 0.4 MG CAP PO SCH (08:21)
[2023-07-09] MEDS: LIPASE/PROTEASE/AMYLASE 36,000 UNIT CAPSULE PO SCH ×3 (08:21→18:00)
[2023-07-09 09:18] LABS: BASO % 0.6 % (0-2.0); HEMATOCRIT 27.3 % (32.4-45.2); HEMOGLOBIN 8.9 GM/dL (10.7-15.3); LYMPH % 16.8 % (8-40); MCHC 32.5 g/dl (32.0-36.0); MEAN CELL VOLUME 83.2 fl (80-96); MEAN PLT VOLUME 7.4 fl (7.5-11.1); MONO % 11.4 % (3.8-10.2); NEUT % 69.2 % (42.8-82.8); PLATELET COUNT 374 10^3/uL (134-434); RBC 3.29 M/mm3 (3.60-5.2); RDW 15.9 % (11.6-15.6); WHITE BLOOD COUNT 10.9 K/mm3 (4.0-10.0)
[2023-07-09] MEDS: BACITRACIN ZINC 15 GM TUBE TOPICAL OINTMENT TP SCH (09:43)
[2023-07-09] MEDS: APIXABAN 5 MG TABLET PO SCH ×2 (09:44→21:42)
[2023-07-09] MEDS: COLCHICINE 0.6 MG TAB PO SCH ×2 (09:44→21:42)
[2023-07-09] MEDS: NORTRIPTYLINE HCL 25 MG CAPSULE PO SCH (09:44)
[2023-07-09] MEDS: POLYETHYLENE GLYCOL (HEALTHYLAX) 3350 17 GM PACKET PO SCH (09:44)
[2023-07-09] MEDS: PANTOPRAZOLE 40 MG TABLET PO SCH (09:44)
[2023-07-09] MEDS: RIFAXIMIN 550 MG TABLET PO SCH ×2 (09:44→21:42)
[2023-07-09] MEDS: amLODIPine BESYLATE 5 MG TABLET (FP) PO SCH (09:44)
[2023-07-09 09:49] LABS: ALBUMIN 2.2 g/dl (3.4-5.0); BLOOD UREA NITROGEN 11.3 mg/dL (7-18); CREATININE 0.4 mg/dL (0.55-1.3); MAGNESIUM 1.9 mg/dL (1.8-2.4); PHOSPHOROUS 2.4 mg/dL (2.5-4.9)
[2023-07-09 09:51] LABS: BILIRUBIN,TOTAL 0.7 mg/dL (0.2-1); TOT PROT 5.8 g/dl (6.4-8.2); URIC ACID 3.1 mg/dL (2.6-7.2)
[2023-07-09] MEDS: UMECLIDINIUM/VILANTEROL (ANORO) 62.5/25 MCG INHALER IH SCH (15:14)
[2023-07-10] MEDS: PIPERACILLIN/TAZOB 3.375 GM 3.375 GM in DEXTROSE 5%-WATER - 50 ML IVPB SCH ×3 (01:11→17:25)
[2023-07-10] MEDS: POLYETHYLENE GLYCOL (HEALTHYLAX) 3350 17 GM PACKET PO SCH (09:40)
[2023-07-10] MEDS: COLCHICINE 0.6 MG TAB PO SCH ×2 (09:41→22:27)
[2023-07-10] MEDS: RIFAXIMIN 550 MG TABLET PO SCH ×2 (09:41→22:27)
[2023-07-10] MEDS: TAMSULOSIN HCL 0.4 MG CAP PO SCH (09:41)
[2023-07-10] MEDS: AMINO ACIDS/PROTEIN HYDROLYS 30 ML LIQUID.PKT PO SCH (09:41)
[2023-07-10] MEDS: amLODIPine BESYLATE 5 MG TABLET (FP) PO SCH (09:41)
[2023-07-10] MEDS: PANTOPRAZOLE 40 MG TABLET PO SCH (09:41)
[2023-07-10] MEDS: MULTIVITAMINS THER W-MINERALS COMBO TABLET (FP) PO SCH (09:41)
[2023-07-10] MEDS: APIXABAN 5 MG TABLET PO SCH ×2 (09:42→22:27)
[2023-07-10] MEDS: LIPASE/PROTEASE/AMYLASE 36,000 UNIT CAPSULE PO SCH ×3 (09:43→17:17)
[2023-07-10 09:51] LABS: HEMATOCRIT 27.5 % (32.4-45.2); HEMOGLOBIN 8.7 GM/dL (10.7-15.3); MCH 26.5 pg (25.7-33.7); MCHC 31.6 g/dl (32.0-36.0); MEAN CELL VOLUME 83.9 fl (80-96); MEAN PLT VOLUME 7.4 fl (7.5-11.1); PLATELET COUNT 417 10^3/uL (134-434); RBC 3.28 M/mm3 (3.60-5.2); WHITE BLOOD COUNT 9.1 K/mm3 (4.0-10.0)
[2023-07-10] MEDS: BACITRACIN ZINC 15 GM TUBE TOPICAL OINTMENT TP SCH (09:56)
[2023-07-10] MEDS: NORTRIPTYLINE HCL 25 MG CAPSULE PO SCH (09:57)
[2023-07-10 10:06] LABS: POTASSIUM 4.2 mmol/L (3.5-5.1)
[2023-07-10] MEDS: UMECLIDINIUM/VILANTEROL (ANORO) 62.5/25 MCG INHALER IH SCH (10:07)
[2023-07-10 10:37] LABS: ANISOCYTOSIS 2+; MACROCYTOSIS 0; TARGET CELLS 1+
[2023-07-10 10:39] LABS: CALCIUM 8.2 mg/dL (8.5-10.1); MAGNESIUM 1.9 mg/dL (1.8-2.4)
[2023-07-10 10:41] LABS: ALBUMIN 2.2 g/dl (3.4-5.0); BLOOD UREA NITROGEN 6.1 mg/dL (7-18)
[2023-07-10 10:42] LABS: CREATININE 0.4 mg/dL (0.55-1.3)
[2023-07-10 10:43] LABS: TOT PROT 5.9 g/dl (6.4-8.2)
[2023-07-10 10:44] LABS: BILIRUBIN,TOTAL 0.6 mg/dL (0.2-1)
[2023-07-10] MEDS ORDERED: FUROSEMIDE 40 MG/4 ML INJECTABLE VIAL IVPUSH ONE (13:31)
[2023-07-10] MEDS: oxyCODONE HCL 5 MG TABLET PO PRN (18:48)
[2023-07-10] MEDS ORDERED: PIPERACILLIN/TAZOBACTAM 3.375 GM VIAL IVPB ONE (20:37)
[2023-07-11] MEDS: PIPERACILLIN/TAZOB 3.375 GM 3.375 GM in DEXTROSE 5%-WATER - 50 ML IVPB SCH ×3 (02:31→17:28)
[2023-07-11] MEDS: TAMSULOSIN HCL 0.4 MG CAP PO SCH (08:08)
[2023-07-11] MEDS: LIPASE/PROTEASE/AMYLASE 36,000 UNIT CAPSULE PO SCH ×3 (08:08→17:29)
[2023-07-11 08:29] LABS: BASO % 0.2 % (0-2.0); EOS % 2.1 % (0-4.5); HEMATOCRIT 28.6 % (32.4-45.2); HEMOGLOBIN 8.9 GM/dL (10.7-15.3); LYMPH % 25.9 % (8-40); MCH 26.3 pg (25.7-33.7); MEAN CELL VOLUME 84.8 fl (80-96); MEAN PLT VOLUME 6.7 fl (7.5-11.1); MONO % 11.4 % (3.8-10.2); NEUT % 60.4 % (42.8-82.8); PLATELET COUNT 410 10^3/uL (134-434); RBC 3.38 M/mm3 (3.60-5.2); RDW 16.3 % (11.6-15.6); WHITE BLOOD COUNT 8.1 K/mm3 (4.0-10.0)
[2023-07-11 09:49] LABS: POTASSIUM 4.2 mmol/L (3.5-5.1)
[2023-07-11 10:06] LABS: ALBUMIN 2.3 g/dl (3.4-5.0); BLOOD UREA NITROGEN 7.6 mg/dL (7-18); CALCIUM 8.5 mg/dL (8.5-10.1); MAGNESIUM 1.9 mg/dL (1.8-2.4)
[2023-07-11] MEDS: POLYETHYLENE GLYCOL (HEALTHYLAX) 3350 17 GM PACKET PO SCH (10:08)
[2023-07-11] MEDS: FUROSEMIDE 40 MG/4 ML INJECTABLE VIAL IVPUSH SCH (10:08)
[2023-07-11] MEDS: COLCHICINE 0.6 MG TAB PO SCH ×2 (10:08→21:43)
[2023-07-11] MEDS: RIFAXIMIN 550 MG TABLET PO SCH ×2 (10:08→21:43)
[2023-07-11] MEDS: APIXABAN 5 MG TABLET PO SCH ×2 (10:08→21:43)
[2023-07-11] MEDS: amLODIPine BESYLATE 5 MG TABLET (FP) PO SCH (10:08)
[2023-07-11] MEDS: PANTOPRAZOLE 40 MG TABLET PO SCH (10:08)
[2023-07-11] MEDS: MULTIVITAMINS THER W-MINERALS COMBO TABLET (FP) PO SCH (10:08)
[2023-07-11 10:09] LABS: CREATININE 0.4 mg/dL (0.55-1.3)
[2023-07-11] MEDS: NORTRIPTYLINE HCL 25 MG CAPSULE PO SCH (10:09)
[2023-07-11 10:11] LABS: BILIRUBIN,TOTAL 0.8 mg/dL (0.2-1)
[2023-07-11] MEDS: AMINO ACIDS/PROTEIN HYDROLYS 30 ML LIQUID.PKT PO SCH (10:11)
[2023-07-11] MEDS: UMECLIDINIUM/VILANTEROL (ANORO) 62.5/25 MCG INHALER IH SCH (10:12)
[2023-07-11] MEDS: BACITRACIN ZINC 15 GM TUBE TOPICAL OINTMENT TP SCH (10:12)
[2023-07-11 11:00] LABS: ANISOCYTOSIS 0; HELMET CELLS 0; HOWELL-JOLLY BODIES 0; MACROCYTOSIS 0; OVALOCYTE 0; ROULEAU 0; SICKELED CELLS 0; TARGET CELLS 0; TEAR DROP CELLS 0; TOXIC GRANULATION 0
[2023-07-11] MEDS: oxyCODONE HCL 5 MG TABLET PO PRN (21:43)
[2023-07-12] MEDS: PIPERACILLIN/TAZOB 3.375 GM 3.375 GM in DEXTROSE 5%-WATER - 50 ML IVPB SCH ×3 (02:15→17:38)
[2023-07-12 09:17] LABS: BASO % 0.3 % (0-2.0); EOS % 1.7 % (0-4.5); HEMATOCRIT 28.7 % (32.4-45.2); MCH 26.5 pg (25.7-33.7); MCHC 31.2 g/dl (32.0-36.0); MEAN CELL VOLUME 84.9 fl (80-96); MEAN PLT VOLUME 6.8 fl (7.5-11.1); MONO % 9.1 % (3.8-10.2); NEUT % 65.9 % (42.8-82.8); PLATELET COUNT 448 10^3/uL (134-434); RBC 3.39 M/mm3 (3.60-5.2); RDW 16.2 % (11.6-15.6); WHITE BLOOD COUNT 10.7 K/mm3 (4.0-10.0)
[2023-07-12 09:42] LABS: POTASSIUM 4.5 mmol/L (3.5-5.1)
[2023-07-12] MEDS: LIPASE/PROTEASE/AMYLASE 36,000 UNIT CAPSULE PO SCH ×3 (09:54→17:38)
[2023-07-12 09:55] LABS: ALBUMIN 2.5 g/dl (3.4-5.0); BLOOD UREA NITROGEN 13.4 mg/dL (7-18); CALCIUM 8.3 mg/dL (8.5-10.1); MAGNESIUM 1.9 mg/dL (1.8-2.4)
[2023-07-12] MEDS: APIXABAN 5 MG TABLET PO SCH ×2 (09:55→21:53)
[2023-07-12] MEDS: FUROSEMIDE 40 MG/4 ML INJECTABLE VIAL IVPUSH SCH (09:55)
[2023-07-12] MEDS: MULTIVITAMINS THER W-MINERALS COMBO TABLET (FP) PO SCH (09:55)
[2023-07-12] MEDS: PANTOPRAZOLE 40 MG TABLET PO SCH (09:55)
[2023-07-12] MEDS: amLODIPine BESYLATE 5 MG TABLET (FP) PO SCH (09:55)
[2023-07-12] MEDS: TAMSULOSIN HCL 0.4 MG CAP PO SCH (09:55)
[2023-07-12] MEDS: COLCHICINE 0.6 MG TAB PO SCH ×2 (09:55→21:53)
[2023-07-12] MEDS: POLYETHYLENE GLYCOL (HEALTHYLAX) 3350 17 GM PACKET PO SCH (09:55)
[2023-07-12] MEDS: RIFAXIMIN 550 MG TABLET PO SCH ×2 (09:55→21:53)
[2023-07-12] MEDS: NORTRIPTYLINE HCL 25 MG CAPSULE PO SCH (09:55)
[2023-07-12 09:57] LABS: CREATININE 0.6 mg/dL (0.55-1.3)
[2023-07-12 09:58] LABS: BILIRUBIN,TOTAL 0.5 mg/dL (0.2-1); TOT PROT 6.4 g/dl (6.4-8.2)
[2023-07-12] MEDS: AMINO ACIDS/PROTEIN HYDROLYS 30 ML LIQUID.PKT PO SCH (10:39)
[2023-07-12] MEDS: UMECLIDINIUM/VILANTEROL (ANORO) 62.5/25 MCG INHALER IH SCH (11:48)
[2023-07-12] MEDS: BACITRACIN ZINC 15 GM TUBE TOPICAL OINTMENT TP SCH (11:48)
[2023-07-12] MEDS: VITAMINS A AND D TOPICAL OINTMENT 60 GM TUBE TP SCH ×2 (11:49→17:53)
[2023-07-12] MEDS: oxyCODONE HCL 5 MG TABLET PO PRN (14:06)
[2023-07-12] MEDS: METHYL SALICYLATE/MENTHOL OINT 30 GM TUBE TP SCH ×2 (15:04→21:55)
[2023-07-13] MEDS: PIPERACILLIN/TAZOB 3.375 GM 3.375 GM in DEXTROSE 5%-WATER - 50 ML IVPB SCH ×3 (01:03→17:16)
[2023-07-13] MEDS: VITAMINS A AND D TOPICAL OINTMENT 60 GM TUBE TP SCH ×5 (01:04→23:20)
[2023-07-13 08:32] LABS: BASO % 0.2 % (0-2.0); EOS % 1.4 % (0-4.5); HEMATOCRIT 28.5 % (32.4-45.2); HEMOGLOBIN 8.8 GM/dL (10.7-15.3); LYMPH % 19.3 % (8-40); MCH 26.4 pg (25.7-33.7); MEAN CELL VOLUME 85.2 fl (80-96); MEAN PLT VOLUME 6.9 fl (7.5-11.1); MONO % 6.6 % (3.8-10.2); NEUT % 72.5 % (42.8-82.8); PLATELET COUNT 417 10^3/uL (134-434); RBC 3.35 M/mm3 (3.60-5.2); RDW 16.2 % (11.6-15.6); WHITE BLOOD COUNT 10.8 K/mm3 (4.0-10.0)
[2023-07-13 08:36] LABS: POTASSIUM 4.4 mmol/L (3.5-5.1)
[2023-07-13 08:39] LABS: ALBUMIN 2.5 g/dl (3.4-5.0); CALCIUM 8.4 mg/dL (8.5-10.1); MAGNESIUM 1.9 mg/dL (1.8-2.4)
[2023-07-13 08:40] LABS: BLOOD UREA NITROGEN 18.9 mg/dL (7-18)
[2023-07-13 08:42] LABS: CREATININE 0.5 mg/dL (0.55-1.3)
[2023-07-13 08:44] LABS: BILIRUBIN,TOTAL 0.5 mg/dL (0.2-1); TOT PROT 6.3 g/dl (6.4-8.2)
[2023-07-13] MEDS: AMINO ACIDS/PROTEIN HYDROLYS 30 ML LIQUID.PKT PO SCH (08:47)
[2023-07-13] MEDS: TAMSULOSIN HCL 0.4 MG CAP PO SCH (08:47)
[2023-07-13] MEDS: LIPASE/PROTEASE/AMYLASE 36,000 UNIT CAPSULE PO SCH ×3 (08:47→17:17)
[2023-07-13] MEDS: UMECLIDINIUM/VILANTEROL (ANORO) 62.5/25 MCG INHALER IH SCH (10:03)
[2023-07-13] MEDS: BACITRACIN ZINC 15 GM TUBE TOPICAL OINTMENT TP SCH ×2 (10:04→10:25)
[2023-07-13] MEDS: MULTIVITAMINS THER W-MINERALS COMBO TABLET (FP) PO SCH (10:05)
[2023-07-13] MEDS: RIFAXIMIN 550 MG TABLET PO SCH ×2 (10:05→21:43)
[2023-07-13] MEDS: METHYL SALICYLATE/MENTHOL OINT 30 GM TUBE TP SCH ×2 (10:05→21:53)
[2023-07-13] MEDS: POLYETHYLENE GLYCOL (HEALTHYLAX) 3350 17 GM PACKET PO SCH (10:05)
[2023-07-13] MEDS: FUROSEMIDE 40 MG/4 ML INJECTABLE VIAL IVPUSH SCH (10:05)
[2023-07-13] MEDS: amLODIPine BESYLATE 5 MG TABLET (FP) PO SCH (10:06)
[2023-07-13] MEDS: APIXABAN 5 MG TABLET PO SCH ×2 (10:06→21:43)
[2023-07-13] MEDS: PANTOPRAZOLE 40 MG TABLET PO SCH (10:06)
[2023-07-13] MEDS: NORTRIPTYLINE HCL 25 MG CAPSULE PO SCH (10:06)
[2023-07-13] MEDS: COLCHICINE 0.6 MG TAB PO SCH ×2 (10:06→21:43)
[2023-07-14] MEDS: PIPERACILLIN/TAZOB 3.375 GM 3.375 GM in DEXTROSE 5%-WATER - 50 ML IVPB SCH ×3 (01:50→17:27)
[2023-07-14] MEDS: VITAMINS A AND D TOPICAL OINTMENT 60 GM TUBE TP SCH ×4 (06:36→18:50)
[2023-07-14] MEDS: AMINO ACIDS/PROTEIN HYDROLYS 30 ML LIQUID.PKT PO SCH ×3 (07:40→17:27)
[2023-07-14 08:24] LABS: BASO % 0.4 % (0-2.0); EOS % 1.3 % (0-4.5); HEMOGLOBIN 9.7 GM/dL (10.7-15.3); LYMPH % 24.6 % (8-40); MCHC 32.3 g/dl (32.0-36.0); MEAN CELL VOLUME 83.4 fl (80-96); MEAN PLT VOLUME 6.8 fl (7.5-11.1); MONO % 6.7 % (3.8-10.2); PLATELET COUNT 429 10^3/uL (134-434); RDW 16.4 % (11.6-15.6); WHITE BLOOD COUNT 11.1 K/mm3 (4.0-10.0)
[2023-07-14 08:32] LABS: POTASSIUM 4.5 mmol/L (3.5-5.1)
[2023-07-14] MEDS: LIPASE/PROTEASE/AMYLASE 36,000 UNIT CAPSULE PO SCH ×3 (08:37→17:27)
[2023-07-14] MEDS: TAMSULOSIN HCL 0.4 MG CAP PO SCH (08:37)
[2023-07-14 08:41] LABS: CALCIUM 8.4 mg/dL (8.5-10.1)
[2023-07-14 08:42] LABS: ALBUMIN 2.9 g/dl (3.4-5.0); BLOOD UREA NITROGEN 15.5 mg/dL (7-18)
[2023-07-14 08:43] LABS: MAGNESIUM 1.9 mg/dL (1.8-2.4)
[2023-07-14 08:45] LABS: CREATININE 0.5 mg/dL (0.55-1.3); TOT PROT 6.8 g/dl (6.4-8.2)
[2023-07-14 08:49] LABS: BILIRUBIN,TOTAL 0.4 mg/dL (0.2-1)
[2023-07-14] MEDS: UMECLIDINIUM/VILANTEROL (ANORO) 62.5/25 MCG INHALER IH SCH (09:52)
[2023-07-14] MEDS: APIXABAN 5 MG TABLET PO SCH ×2 (09:53→21:34)
[2023-07-14] MEDS: RIFAXIMIN 550 MG TABLET PO SCH ×2 (09:53→21:34)
[2023-07-14] MEDS: PANTOPRAZOLE 40 MG TABLET PO SCH (09:53)
[2023-07-14] MEDS: MULTIVITAMINS THER W-MINERALS COMBO TABLET (FP) PO SCH (09:53)
[2023-07-14] MEDS: COLCHICINE 0.6 MG TAB PO SCH ×2 (09:53→21:34)
[2023-07-14] MEDS: amLODIPine BESYLATE 5 MG TABLET (FP) PO SCH (09:53)
[2023-07-14] MEDS: FUROSEMIDE 40 MG/4 ML INJECTABLE VIAL IVPUSH SCH (09:53)
[2023-07-14] MEDS: ASCORBIC ACID 500 MG TABLET (FP) PO SCH (09:53)
[2023-07-14] MEDS: POLYETHYLENE GLYCOL (HEALTHYLAX) 3350 17 GM PACKET PO SCH (09:53)
[2023-07-14] MEDS: NORTRIPTYLINE HCL 25 MG CAPSULE PO SCH (09:54)
[2023-07-14] MEDS: BACITRACIN ZINC 15 GM TUBE TOPICAL OINTMENT TP SCH (09:55)
[2023-07-14] MEDS: METHYL SALICYLATE/MENTHOL OINT 30 GM TUBE TP SCH ×2 (09:56→21:34)
[2023-07-15] MEDS: VITAMINS A AND D TOPICAL OINTMENT 60 GM TUBE TP SCH ×4 (00:43→17:10)
[2023-07-15] MEDS: PIPERACILLIN/TAZOB 3.375 GM 3.375 GM in DEXTROSE 5%-WATER - 50 ML IVPB SCH ×3 (01:45→17:07)
[2023-07-15 09:03] LABS: BASO % 0.4 % (0-2.0); EOS % 1.2 % (0-4.5); HEMOGLOBIN 9.2 GM/dL (10.7-15.3); LYMPH % 22.4 % (8-40); MCH 26.3 pg (25.7-33.7); MCHC 30.7 g/dl (32.0-36.0); MEAN CELL VOLUME 85.6 fl (80-96); MONO % 6.4 % (3.8-10.2); NEUT % 69.6 % (42.8-82.8); PLATELET COUNT 431 10^3/uL (134-434); RDW 16.5 % (11.6-15.6); WHITE BLOOD COUNT 9.3 K/mm3 (4.0-10.0)
[2023-07-15] MEDS: POLYETHYLENE GLYCOL (HEALTHYLAX) 3350 17 GM PACKET PO SCH (09:30)
[2023-07-15] MEDS: LIPASE/PROTEASE/AMYLASE 36,000 UNIT CAPSULE PO SCH ×3 (09:31→17:08)
[2023-07-15] MEDS: AMINO ACIDS/PROTEIN HYDROLYS 30 ML LIQUID.PKT PO SCH ×3 (09:31→17:10)
[2023-07-15] MEDS: NORTRIPTYLINE HCL 25 MG CAPSULE PO SCH (09:32)
[2023-07-15] MEDS: MULTIVITAMINS THER W-MINERALS COMBO TABLET (FP) PO SCH (09:32)
[2023-07-15] MEDS: COLCHICINE 0.6 MG TAB PO SCH ×2 (09:32→22:09)
[2023-07-15] MEDS: TAMSULOSIN HCL 0.4 MG CAP PO SCH (09:32)
[2023-07-15] MEDS: RIFAXIMIN 550 MG TABLET PO SCH ×2 (09:32→22:09)
[2023-07-15] MEDS: amLODIPine BESYLATE 5 MG TABLET (FP) PO SCH (09:33)
[2023-07-15] MEDS: PANTOPRAZOLE 40 MG TABLET PO SCH (09:33)
[2023-07-15] MEDS: FUROSEMIDE 40 MG/4 ML INJECTABLE VIAL IVPUSH SCH (09:33)
[2023-07-15] MEDS: ASCORBIC ACID 500 MG TABLET (FP) PO SCH (09:33)
[2023-07-15] MEDS: UMECLIDINIUM/VILANTEROL (ANORO) 62.5/25 MCG INHALER IH SCH (09:34)
[2023-07-15] MEDS: METHYL SALICYLATE/MENTHOL OINT 30 GM TUBE TP SCH ×2 (09:34→22:46)
[2023-07-15] MEDS: BACITRACIN ZINC 15 GM TUBE TOPICAL OINTMENT TP SCH (09:35)
[2023-07-15] MEDS: APIXABAN 5 MG TABLET PO SCH ×2 (09:36→22:09)
[2023-07-15 09:44] LABS: POTASSIUM 4.4 mmol/L (3.5-5.1)
[2023-07-15 10:04] LABS: BLOOD UREA NITROGEN 15.8 mg/dL (7-18); CALCIUM 8.4 mg/dL (8.5-10.1)
[2023-07-15 10:05] LABS: ALBUMIN 2.9 g/dl (3.4-5.0); MAGNESIUM 2.1 mg/dL (1.8-2.4)
[2023-07-15 10:06] LABS: CREATININE 0.5 mg/dL (0.55-1.3)
[2023-07-15 10:08] LABS: BILIRUBIN,TOTAL 0.4 mg/dL (0.2-1); TOT PROT 6.9 g/dl (6.4-8.2)
[2023-07-16] MEDS: VITAMINS A AND D TOPICAL OINTMENT 60 GM TUBE TP SCH ×4 (01:26→17:21)
[2023-07-16] MEDS: PIPERACILLIN/TAZOB 3.375 GM 3.375 GM in DEXTROSE 5%-WATER - 50 ML IVPB SCH ×3 (03:41→17:21)
[2023-07-16] MEDS: APIXABAN 5 MG TABLET PO SCH ×2 (09:04→22:33)
[2023-07-16] MEDS: RIFAXIMIN 550 MG TABLET PO SCH ×2 (09:04→22:33)
[2023-07-16] MEDS: TAMSULOSIN HCL 0.4 MG CAP PO SCH (09:04)
[2023-07-16] MEDS: MULTIVITAMINS THER W-MINERALS COMBO TABLET (FP) PO SCH (09:04)
[2023-07-16] MEDS: ASCORBIC ACID 500 MG TABLET (FP) PO SCH (09:04)
[2023-07-16] MEDS: POLYETHYLENE GLYCOL (HEALTHYLAX) 3350 17 GM PACKET PO SCH (09:04)
[2023-07-16] MEDS: PANTOPRAZOLE 40 MG TABLET PO SCH (09:04)
[2023-07-16] MEDS: COLCHICINE 0.6 MG TAB PO SCH ×2 (09:04→22:33)
[2023-07-16] MEDS: FUROSEMIDE 40 MG/4 ML INJECTABLE VIAL IVPUSH SCH (09:04)
[2023-07-16] MEDS: amLODIPine BESYLATE 5 MG TABLET (FP) PO SCH (09:04)
[2023-07-16] MEDS: LIPASE/PROTEASE/AMYLASE 36,000 UNIT CAPSULE PO SCH ×3 (09:05→16:45)
[2023-07-16] MEDS: AMINO ACIDS/PROTEIN HYDROLYS 30 ML LIQUID.PKT PO SCH ×3 (09:05→16:50)
[2023-07-16] MEDS: BACITRACIN ZINC 15 GM TUBE TOPICAL OINTMENT TP SCH (09:06)
[2023-07-16] MEDS: UMECLIDINIUM/VILANTEROL (ANORO) 62.5/25 MCG INHALER IH SCH (09:06)
[2023-07-16] MEDS: METHYL SALICYLATE/MENTHOL OINT 30 GM TUBE TP SCH ×2 (09:06→22:33)
[2023-07-16] MEDS: NORTRIPTYLINE HCL 25 MG CAPSULE PO SCH (09:10)
[2023-07-16 09:35] LABS: BASO % 0.4 % (0-2.0); EOS % 1.2 % (0-4.5); HEMATOCRIT 29.9 % (32.4-45.2); HEMOGLOBIN 9.2 GM/dL (10.7-15.3); LYMPH % 24.2 % (8-40); MCH 26.5 pg (25.7-33.7); MCHC 30.9 g/dl (32.0-36.0); MEAN CELL VOLUME 85.9 fl (80-96); MEAN PLT VOLUME 7.2 fl (7.5-11.1); MONO % 6.5 % (3.8-10.2); NEUT % 67.7 % (42.8-82.8); PLATELET COUNT 408 10^3/uL (134-434); RBC 3.49 M/mm3 (3.60-5.2); RDW 16.5 % (11.6-15.6); WHITE BLOOD COUNT 9.7 K/mm3 (4.0-10.0)
[2023-07-16 09:51] LABS: POTASSIUM 4.3 mmol/L (3.5-5.1)
[2023-07-16 10:08] LABS: CALCIUM 8.9 mg/dL (8.5-10.1)
[2023-07-16 10:09] LABS: ALBUMIN 3.1 g/dl (3.4-5.0); BLOOD UREA NITROGEN 17.4 mg/dL (7-18)
[2023-07-16 10:11] LABS: CREATININE 0.6 mg/dL (0.55-1.3)
[2023-07-16 10:13] LABS: BILIRUBIN,TOTAL 0.5 mg/dL (0.2-1)
[2023-07-16 10:14] LABS: TOT PROT 7.4 g/dl (6.4-8.2)
[2023-07-17] MEDS: PIPERACILLIN/TAZOB 3.375 GM 3.375 GM in DEXTROSE 5%-WATER - 50 ML IVPB SCH ×3 (01:22→17:19)
[2023-07-17] MEDS: VITAMINS A AND D TOPICAL OINTMENT 60 GM TUBE TP SCH ×4 (01:23→17:20)
[2023-07-17 09:37] LABS: BASO % 0.3 % (0-2.0); EOS % 2.1 % (0-4.5); HEMATOCRIT 29.1 % (32.4-45.2); HEMOGLOBIN 9.5 GM/dL (10.7-15.3); LYMPH % 27.6 % (8-40); MCH 27.7 pg (25.7-33.7); MCHC 32.8 g/dl (32.0-36.0); MEAN CELL VOLUME 84.4 fl (80-96); MEAN PLT VOLUME 7.3 fl (7.5-11.1); MONO % 6.2 % (3.8-10.2); NEUT % 63.8 % (42.8-82.8); PLATELET COUNT 354 10^3/uL (134-434); RBC 3.45 M/mm3 (3.60-5.2); RDW 17.1 % (11.6-15.6); WHITE BLOOD COUNT 8.8 K/mm3 (4.0-10.0)
[2023-07-17] MEDS: ASCORBIC ACID 500 MG TABLET (FP) PO SCH (09:46)
[2023-07-17] MEDS: MULTIVITAMINS THER W-MINERALS COMBO TABLET (FP) PO SCH (09:47)
[2023-07-17] MEDS: RIFAXIMIN 550 MG TABLET PO SCH ×2 (09:47→21:48)
[2023-07-17] MEDS: TAMSULOSIN HCL 0.4 MG CAP PO SCH (09:47)
[2023-07-17] MEDS: PANTOPRAZOLE 40 MG TABLET PO SCH (09:48)
[2023-07-17] MEDS: FUROSEMIDE 40 MG/4 ML INJECTABLE VIAL IVPUSH SCH (09:48)
[2023-07-17] MEDS: COLCHICINE 0.6 MG TAB PO SCH ×2 (09:48→21:49)
[2023-07-17] MEDS: amLODIPine BESYLATE 5 MG TABLET (FP) PO SCH (09:48)
[2023-07-17] MEDS: APIXABAN 5 MG TABLET PO SCH ×2 (09:49→21:48)
[2023-07-17] MEDS: AMINO ACIDS/PROTEIN HYDROLYS 30 ML LIQUID.PKT PO SCH ×3 (09:49→22:21)
[2023-07-17] MEDS: BACITRACIN ZINC 15 GM TUBE TOPICAL OINTMENT TP SCH (09:49)
[2023-07-17] MEDS: POLYETHYLENE GLYCOL (HEALTHYLAX) 3350 17 GM PACKET PO SCH (09:50)
[2023-07-17] MEDS: LIPASE/PROTEASE/AMYLASE 36,000 UNIT CAPSULE PO SCH ×3 (09:51→17:19)
[2023-07-17] MEDS: NORTRIPTYLINE HCL 25 MG CAPSULE PO SCH (09:51)
[2023-07-17] MEDS: METHYL SALICYLATE/MENTHOL OINT 30 GM TUBE TP SCH ×2 (10:03→21:49)
[2023-07-17] MEDS: UMECLIDINIUM/VILANTEROL (ANORO) 62.5/25 MCG INHALER IH SCH (10:06)
[2023-07-17] MEDS: COLLAGENASE CLOSTRIDIUM HIST. 30 GRAMS TUBE TP SCH (13:53)
[2023-07-17 14:11] LABS: POTASSIUM 4.4 mmol/L (3.5-5.1)
[2023-07-17 14:14] LABS: ALBUMIN 3.1 g/dl (3.4-5.0); BLOOD UREA NITROGEN 19.1 mg/dL (7-18); MAGNESIUM 2.1 mg/dL (1.8-2.4)
[2023-07-17 14:17] LABS: CREATININE 0.6 mg/dL (0.55-1.3)
[2023-07-17 14:19] LABS: BILIRUBIN,TOTAL 0.4 mg/dL (0.2-1); TOT PROT 7.2 g/dl (6.4-8.2)
[2023-07-17 16:03] VITALS: BMI 41.1
[2023-07-18] MEDS: VITAMINS A AND D TOPICAL OINTMENT 60 GM TUBE TP SCH ×5 (00:17→23:59)
[2023-07-18] MEDS: PIPERACILLIN/TAZOB 3.375 GM 3.375 GM in DEXTROSE 5%-WATER - 50 ML IVPB SCH ×3 (02:06→17:19)
[2023-07-18 09:17] LABS: BASO % 0.6 % (0-2.0); EOS % 2.2 % (0-4.5); HEMATOCRIT 31.1 % (32.4-45.2); HEMOGLOBIN 9.4 GM/dL (10.7-15.3); LYMPH % 31.9 % (8-40); MCH 26.1 pg (25.7-33.7); MCHC 30.3 g/dl (32.0-36.0); MEAN CELL VOLUME 86.2 fl (80-96); MEAN PLT VOLUME 7.4 fl (7.5-11.1); MONO % 7.8 % (3.8-10.2); NEUT % 57.5 % (42.8-82.8); PLATELET COUNT 385 10^3/uL (134-434); RBC 3.61 M/mm3 (3.60-5.2); RDW 17.6 % (11.6-15.6); WHITE BLOOD COUNT 7.8 K/mm3 (4.0-10.0)
[2023-07-18] MEDS: RIFAXIMIN 550 MG TABLET PO SCH ×2 (09:22→21:44)
[2023-07-18] MEDS: LIPASE/PROTEASE/AMYLASE 36,000 UNIT CAPSULE PO SCH ×3 (09:22→18:59)
[2023-07-18] MEDS: FUROSEMIDE 20 MG TABLET (FP) PO SCH (09:22)
[2023-07-18] MEDS: COLCHICINE 0.6 MG TAB PO SCH ×2 (09:22→21:44)
[2023-07-18] MEDS: MULTIVITAMINS THER W-MINERALS COMBO TABLET (FP) PO SCH (09:22)
[2023-07-18] MEDS: amLODIPine BESYLATE 5 MG TABLET (FP) PO SCH (09:22)
[2023-07-18] MEDS: NORTRIPTYLINE HCL 25 MG CAPSULE PO SCH (09:22)
[2023-07-18] MEDS: AMINO ACIDS/PROTEIN HYDROLYS 30 ML LIQUID.PKT PO SCH ×3 (09:23→16:35)
[2023-07-18] MEDS: TAMSULOSIN HCL 0.4 MG CAP PO SCH (09:23)
[2023-07-18] MEDS: ASCORBIC ACID 500 MG TABLET (FP) PO SCH (09:23)
[2023-07-18] MEDS: PANTOPRAZOLE 40 MG TABLET PO SCH (09:23)
[2023-07-18] MEDS: APIXABAN 5 MG TABLET PO SCH ×2 (09:23→21:44)
[2023-07-18] MEDS: UMECLIDINIUM/VILANTEROL (ANORO) 62.5/25 MCG INHALER IH SCH (09:24)
[2023-07-18] MEDS: BACITRACIN ZINC 15 GM TUBE TOPICAL OINTMENT TP SCH (09:24)
[2023-07-18] MEDS: COLLAGENASE CLOSTRIDIUM HIST. 30 GRAMS TUBE TP SCH (09:25)
[2023-07-18] MEDS: METHYL SALICYLATE/MENTHOL OINT 30 GM TUBE TP SCH ×2 (09:25→21:45)
[2023-07-18] MEDS: POLYETHYLENE GLYCOL (HEALTHYLAX) 3350 17 GM PACKET PO SCH (09:29)
[2023-07-18 09:53] LABS: POTASSIUM 4.3 mmol/L (3.5-5.1)
[2023-07-18 10:13] LABS: ALBUMIN 3.2 g/dl (3.4-5.0)
[2023-07-18 10:14] LABS: BLOOD UREA NITROGEN 17.4 mg/dL (7-18); CREATININE 0.6 mg/dL (0.55-1.3)
[2023-07-18 10:15] LABS: TOT PROT 7.3 g/dl (6.4-8.2)
[2023-07-18 10:16] LABS: BILIRUBIN,TOTAL 0.5 mg/dL (0.2-1); CALCIUM 9.1 mg/dL (8.5-10.1)
[2023-07-18 10:18] LABS: MAGNESIUM 2.1 mg/dL (1.8-2.4)
[2023-07-19] MEDS: PIPERACILLIN/TAZOB 3.375 GM 3.375 GM in DEXTROSE 5%-WATER - 50 ML IVPB SCH ×2 (01:51→09:24)
[2023-07-19] MEDS: VITAMINS A AND D TOPICAL OINTMENT 60 GM TUBE TP SCH ×3 (06:24→17:18)
[2023-07-19] MEDS: MULTIVITAMINS THER W-MINERALS COMBO TABLET (FP) PO SCH (09:25)
[2023-07-19] MEDS: NORTRIPTYLINE HCL 25 MG CAPSULE PO SCH (09:25)
[2023-07-19] MEDS: LIPASE/PROTEASE/AMYLASE 36,000 UNIT CAPSULE PO SCH ×3 (09:25→17:04)
[2023-07-19] MEDS: COLCHICINE 0.6 MG TAB PO SCH ×2 (09:26→21:24)
[2023-07-19] MEDS: RIFAXIMIN 550 MG TABLET PO SCH (09:26)
[2023-07-19] MEDS: ASCORBIC ACID 500 MG TABLET (FP) PO SCH (09:26)
[2023-07-19] MEDS: amLODIPine BESYLATE 5 MG TABLET (FP) PO SCH (09:26)
[2023-07-19] MEDS: APIXABAN 5 MG TABLET PO SCH ×2 (09:26→21:24)
[2023-07-19] MEDS: PANTOPRAZOLE 40 MG TABLET PO SCH (09:26)
[2023-07-19] MEDS: FUROSEMIDE 20 MG TABLET (FP) PO SCH (09:26)
[2023-07-19] MEDS: TAMSULOSIN HCL 0.4 MG CAP PO SCH (09:26)
[2023-07-19] MEDS: AMINO ACIDS/PROTEIN HYDROLYS 30 ML LIQUID.PKT PO SCH ×3 (09:27→17:04)
[2023-07-19] MEDS: METHYL SALICYLATE/MENTHOL OINT 30 GM TUBE TP SCH (09:27)
[2023-07-19] MEDS: UMECLIDINIUM/VILANTEROL (ANORO) 62.5/25 MCG INHALER IH SCH (09:28)
[2023-07-19] MEDS: BACITRACIN ZINC 15 GM TUBE TOPICAL OINTMENT TP SCH (09:31)
[2023-07-19] MEDS: COLLAGENASE CLOSTRIDIUM HIST. 30 GRAMS TUBE TP SCH (09:31)
[2023-07-19] MEDS: POLYETHYLENE GLYCOL (HEALTHYLAX) 3350 17 GM PACKET PO SCH (09:34)
[2023-07-20] MEDS: METHYL SALICYLATE/MENTHOL OINT 30 GM TUBE TP SCH (01:39)
[2023-07-20] MEDS: VITAMINS A AND D TOPICAL OINTMENT 60 GM TUBE TP SCH (01:40)
[2023-07-20 04:34] VITALS: BP 139/81; PULSE 99; RESP 20; TEMP 98.4
== END 2023-07-20 02:00 | disposition home or self-care (01) | DRG 872 ==
LOC: JER 04:22 → JERBED 06:54 → J6S 11:39 → J8W 07-08 11:41
PROVIDERS: ADMIT Internal Medicine; ATTEND Internal Medicine
PROC: 0Y9N3ZX Drainage of Left Foot, Percutaneous Approach, Diagnostic (ICD-10-PCS; principal; 2023-07-16)
DX: A41.9 Sepsis, unspecified organism (principal); N17.9 Acute kidney failure, unspecified; Z68.41 Body mass index [BMI] 40.0-44.9, adult; E87.1 Hypo-osmolality and hyponatremia; L03.317 Cellulitis of buttock; L03.116 Cellulitis of left lower limb; L03.115 Cellulitis of right lower limb; L02.612 Cutaneous abscess of left foot; I50.32 Chronic diastolic (congestive) heart failure; N39.0 Urinary tract infection, site not specified; J44.9 Chronic obstructive pulmonary disease, unspecified; I35.0 Nonrheumatic aortic (valve) stenosis; E78.5 Hyperlipidemia, unspecified; E66.01 Morbid (severe) obesity due to excess calories; I25.10 Atherosclerotic heart disease of native coronary artery without angina pectoris; M21.372 Foot drop, left foot; R14.0 Abdominal distension (gaseous); L89.152 Pressure ulcer of sacral region, stage 2; I11.0 Hypertensive heart disease with heart failure; B96.1 Klebsiella pneumoniae [K. pneumoniae] as the cause of diseases classified elsewhere
CPT/HCPCS: 0241U-QW; 36415; 71045-TC-FY; 73030-TC-LT-FY; 80053; 80061; 81003; 82550; 82553; 82570; 82962; 83735; 83880; 83930; 84100; 84300; 84439; 84443; 84484; 84550; 85025; 85610; 85651; 85730; 86140; 87040; 87070; 87086; 87186; 87205; 88304-TC; 90686; 93005; 93010; 93970-TC; 97116-GP; 97161-GP; 99285-25; G0008

== ENCOUNTER 2023-07-31 02:15 | Inpatient (IN) | payer OTHER ==
[2023-07-31] MEDS ORDERED: VANCOMYCIN 1,000 MG in DEXTROSE 5%-WATER - 250 ML IVPB ONE (03:18)
[2023-07-31] MEDS ORDERED: ACETAMINOPHEN 1000 MG/100 ML BAG IVPB ONE (03:19)
[2023-07-31] MEDS ORDERED: ACETAMINOPHEN INJECTION 100 ML IVPB ONE ×2 (04:59→13:46)
[2023-07-31 05:36] LABS: BASO % 0.2 % (0-2.0); EOS % 1.1 % (0-4.5); MCH 26.7 pg (25.7-33.7); MEAN CELL VOLUME 83.4 fl (80-96); MEAN PLT VOLUME 7.9 fl (7.5-11.1); NEUT % 72.7 % (42.8-82.8); PLATELET COUNT 376 10^3/uL (134-434); RBC 3.36 M/mm3 (3.60-5.2); RDW 17.5 % (11.6-15.6)
[2023-07-31 05:47] LABS: INR 1.37 (0.83-1.09); PROTHROMBIN TIME (PATIENT) 15.8 SEC (9.7-13.0)
[2023-07-31] MEDS ORDERED: PIPERACILLIN/TAZOB 3.375 GM 3.375 GM/50 ML BAG IVPB ONE (05:51)
[2023-07-31] MEDS ORDERED: VANCOMYCIN 1 GRAM (PRE-DOCKED) 1,000 MG/250 ML BAG IVPB ONE (05:51)
[2023-07-31] MEDS: PIPERACILLIN/TAZOB 3.375 GM 3.375 GM in DEXTROSE 5%-WATER - 50 ML IVPB ONE ×2 (06:00→06:20)
[2023-07-31 06:03] LABS: POTASSIUM 3.1 mmol/L (3.5-5.1)
[2023-07-31 06:05] LABS: CALCIUM 8.7 mg/dL (8.5-10.1)
[2023-07-31 06:06] LABS: ALBUMIN 3.3 g/dl (3.4-5.0); BLOOD UREA NITROGEN 34.2 mg/dL (7-18)
[2023-07-31 06:09] LABS: CREATININE 2.1 mg/dL (0.55-1.3)
[2023-07-31 06:10] LABS: BILIRUBIN,TOTAL 0.6 mg/dL (0.2-1); TOT PROT 7.4 g/dl (6.4-8.2)
[2023-07-31] MEDS ORDERED: POTASSIUM CHLORIDE ORAL LIQUID 20 MEQ/15 ML PO ONE (06:10)
[2023-07-31] MEDS ORDERED: SODIUM CHLORIDE 0.9% 500 ML INFUS.BAG IV ONE (06:11)
[2023-07-31] MEDS ORDERED: POTASSIUM CHLORIDE ORAL LIQUID 20 MEQ/15 ML ONE (06:37)
[2023-07-31] MEDS ORDERED: PANTOPRAZOLE 40 MG TABLET PO ONE (11:01)
[2023-07-31] MEDS ORDERED: APIXABAN 5 MG TABLET ONE (11:02)
[2023-07-31] MEDS ORDERED: METOCLOPRAMIDE HCL 10 MG TABLET (FP) PO ONE (11:02)
[2023-07-31] MEDS: PANTOPRAZOLE 40 MG TABLET PO SCH (11:05)
[2023-07-31] MEDS: APIXABAN 5 MG TABLET PO SCH ×2 (11:05→22:17)
[2023-07-31] MEDS: METOCLOPRAMIDE HCL 10 MG TABLET (FP) PO SCH ×2 (11:05→22:17)
[2023-07-31] MEDS: LACTATED RINGERS SOLUTION 1,000 ML IV SCH (11:18)
[2023-07-31] MEDS: UMECLIDINIUM/VILANTEROL (ANORO) 62.5/25 MCG INHALER IH SCH (11:18)
[2023-07-31] MEDS: COLLAGENASE CLOSTRIDIUM HIST. 30 GRAMS TUBE TP SCH (11:18)
[2023-07-31] MEDS: amLODIPine BESYLATE 5 MG TABLET (FP) PO SCH (12:01)
[2023-07-31 12:03] LABS: BASO % 0.3 % (0-2.0); HEMOGLOBIN 7.7 GM/dL (10.7-15.3); LYMPH % 18.6 % (8-40); MCH 26.4 pg (25.7-33.7); MCHC 31.9 g/dl (32.0-36.0); MEAN CELL VOLUME 82.8 fl (80-96); MEAN PLT VOLUME 7.7 fl (7.5-11.1); MONO % 13.1 % (3.8-10.2); PLATELET COUNT 327 10^3/uL (134-434); RDW 17.6 % (11.6-15.6); WHITE BLOOD COUNT 7.5 K/mm3 (4.0-10.0)
[2023-07-31] MEDS ORDERED: ACETAMINOPHEN 1000 MG/100 ML BAG IVPB PRN (12:04)
[2023-07-31 12:16] LABS: CHLORIDE 103 mmol/L (98-107); SODIUM 136 mmol/L (136-145)
[2023-07-31 12:18] LABS: BLOOD UREA NITROGEN 31.1 mg/dL (7-18); CALCIUM 8.1 mg/dL (8.5-10.1)
[2023-07-31 12:19] LABS: ALBUMIN 2.8 g/dl (3.4-5.0); CO2 24 mmol/L (21-32); GLUCOSE,RANDOM 97 mg/dL (74-106); MAGNESIUM 1.9 mg/dL (1.8-2.4)
[2023-07-31 12:22] LABS: CREATININE 1.8 mg/dL (0.55-1.3); SGOT/AST 6 U/L (15-37); SGPT/ALT 9 U/L (13-61)
[2023-07-31 12:23] LABS: BILIRUBIN,TOTAL 0.7 mg/dL (0.2-1); TOT PROT 6.4 g/dl (6.4-8.2)
[2023-07-31 12:25] LABS: ALK PHOS 88 U/L (45-117); ANION GAP 9 mmol/L (4-13); POTASSIUM 2.9 mmol/L (3.5-5.1)
[2023-07-31 13:07] LABS: ERYTHROCYTE SEDIMENTATION RATE 79 mm/hr (0-30)
[2023-07-31] MEDS ORDERED: CEFEPIME 1 GM in DEXTROSE 5%-WATER 100 ML IVPB SCH (14:00)
[2023-07-31] MEDS ORDERED: PIPERACILLIN/TAZOB 2.25 GM 2.25 GM/50 ML BAG IVPB ONE (14:15)
[2023-07-31] MEDS: PIPERACILLIN/TAZOB 2.25 GM 2.25 GM in DEXTROSE 5%-WATER - 50 ML IVPB SCH ×2 (14:56→22:16)
[2023-07-31] MEDS ORDERED: CEFEPIME HCL 2 GM VIAL (RESTRICTED TO ID) IVPB SCH ×2 (15:00)
[2023-07-31 18:26] VITALS: BMI 43.0
[2023-07-31 19:45] LABS: URINE APPEARANCE CLEAR; URINE BILIRUBIN NEGATIVE (NEGATIVE); URINE COLOR YELLOW; URINE GLUCOSE (UA) NEGATIVE (NEGATIVE); URINE KETONE NEGATIVE (NEGATIVE); URINE LEUK ESTERASE NEGATIVE (NEGATIVE); URINE NITRITE NEGATIVE (NEGATIVE); URINE PROTEIN NEGATIVE (NEGATIVE); URINE UROBILINOGEN 0.2 mg/dL (0.2-1.0)
[2023-07-31] MEDS: ATORVASTATIN CA 20 MG TABLET (FP) PO SCH (22:17)
[2023-07-31] MEDS: NORTRIPTYLINE HCL 25 MG CAPSULE PO SCH (22:17)
[2023-08-01] MEDS ORDERED: VANCOMYCIN PREMIX 1.5 GM 1,500 MG/300 ML BAG IVPB SCH (07:00)
[2023-08-01] MEDS: LACTATED RINGERS SOLUTION 1,000 ML IV SCH (07:17)
[2023-08-01] MEDS: PIPERACILLIN/TAZOB 2.25 GM 2.25 GM in DEXTROSE 5%-WATER - 50 ML IVPB SCH ×3 (07:31→22:28)
[2023-08-01 08:59] LABS: BASO % 0.5 % (0-2.0); EOS % 1.7 % (0-4.5); HEMATOCRIT 26.2 % (32.4-45.2); HEMOGLOBIN 8.2 GM/dL (10.7-15.3); LYMPH % 23.2 % (8-40); MCH 26.1 pg (25.7-33.7); MCHC 31.4 g/dl (32.0-36.0); MEAN CELL VOLUME 83.1 fl (80-96); MEAN PLT VOLUME 7.8 fl (7.5-11.1); MONO % 10.8 % (3.8-10.2); NEUT % 63.8 % (42.8-82.8); PLATELET COUNT 332 10^3/uL (134-434); RBC 3.15 M/mm3 (3.60-5.2); RDW 17.3 % (11.6-15.6); WHITE BLOOD COUNT 5.9 K/mm3 (4.0-10.0)
[2023-08-01] MEDS: APIXABAN 5 MG TABLET PO SCH (10:07)
[2023-08-01] MEDS: TAMSULOSIN HCL 0.4 MG CAP PO SCH (10:07)
[2023-08-01] MEDS: amLODIPine BESYLATE 5 MG TABLET (FP) PO SCH (10:08)
[2023-08-01] MEDS: METOCLOPRAMIDE HCL 10 MG TABLET (FP) PO SCH ×2 (10:08→22:27)
[2023-08-01] MEDS: PANTOPRAZOLE 40 MG TABLET PO SCH (10:08)
[2023-08-01 10:33] LABS: POTASSIUM 3.1 mmol/L (3.5-5.1)
[2023-08-01 10:39] LABS: CALCIUM 8.4 mg/dL (8.5-10.1)
[2023-08-01 10:40] LABS: ALBUMIN 2.7 g/dl (3.4-5.0); BLOOD UREA NITROGEN 23.2 mg/dL (7-18); MAGNESIUM 1.9 mg/dL (1.8-2.4)
[2023-08-01 10:45] LABS: BILIRUBIN,TOTAL 0.5 mg/dL (0.2-1); TOT PROT 6.4 g/dl (6.4-8.2)
[2023-08-01] MEDS ORDERED: CEFEPIME 1 GM in DEXTROSE 5%-WATER 100 ML IVPB SCH (14:00)
[2023-08-01] MEDS: UMECLIDINIUM/VILANTEROL (ANORO) 62.5/25 MCG INHALER IH SCH (14:26)
[2023-08-01] MEDS: POTASSIUM CHLORIDE TABS 20 MEQ TABLET.ER (FP) PO SCH ×2 (14:30→22:27)
[2023-08-01] MEDS: COLLAGENASE CLOSTRIDIUM HIST. 30 GRAMS TUBE TP SCH (15:14)
[2023-08-01] MEDS ORDERED: ENOXAPARIN NA (PORCINE) 100 MG/1 ML DISP.SYRIN SQ SCH (22:00)
[2023-08-01] MEDS ORDERED: MAGNESIUM OXIDE 400 MG TABLET (FP) PO ONE (22:00)
[2023-08-01] MEDS: ATORVASTATIN CA 20 MG TABLET (FP) PO SCH (22:27)
[2023-08-01] MEDS: NORTRIPTYLINE HCL 25 MG CAPSULE PO SCH (22:27)
[2023-08-02] MEDS: PIPERACILLIN/TAZOB 2.25 GM 2.25 GM in DEXTROSE 5%-WATER - 50 ML IVPB SCH ×3 (06:31→22:28)
[2023-08-02] MEDS ORDERED: LIDOCAINE HCL 1%, 10 MG/ML (20ML VIAL) ONE (09:29)
[2023-08-02] MEDS ORDERED: BUPIVACAINE HCL/PF 0.5% (5MG/ML) 10 ML VIAL ONE (09:29)
[2023-08-02] MEDS: COLLAGENASE CLOSTRIDIUM HIST. 30 GRAMS TUBE TP SCH (09:45)
[2023-08-02] MEDS ORDERED: GENTAMICIN SO4 80 MG/2 ML VIAL ONE (09:53)
[2023-08-02] MEDS ORDERED: ONDANSETRON 4 MG/2 ML VIAL IVPUSH PRN ×2 (10:20→11:28)
[2023-08-02] MEDS ORDERED: LACTATED RINGERS SOLUTION 1,000 ML IV SCH ×2 (10:30→11:28)
[2023-08-02] MEDS ORDERED: PROPOFOL 20 ML ONE (10:35)
[2023-08-02] MEDS ORDERED: MIDAZOLAM HCL 2 MG/2 ML SINGLE DOSE VIAL ONE (10:36)
[2023-08-02] MEDS ORDERED: LIDOCAINE HCL/PF 2% SDV 5ML VIAL ONE (10:43)
[2023-08-02] MEDS ORDERED: BUPIVACAINE HCL/PF 0.5% (5 MG/ML) 30 ML VIAL IJ ONE ×2 (10:57)
[2023-08-02] MEDS ORDERED: LIDOCAINE HCL 1%, 10 MG/ML (20ML VIAL) INF ONE ×2 (10:57)
[2023-08-02] MEDS: TAMSULOSIN HCL 0.4 MG CAP PO SCH ×2 (15:12→17:36)
[2023-08-02] MEDS: PANTOPRAZOLE 40 MG TABLET PO SCH ×2 (15:12→17:36)
[2023-08-02] MEDS: amLODIPine BESYLATE 5 MG TABLET (FP) PO SCH ×2 (15:12→17:36)
[2023-08-02] MEDS ORDERED: POTASSIUM CHLORIDE TABS 20 MEQ TABLET.ER (FP) PO ONE (17:00)
[2023-08-02] MEDS: METOPROLOL TARTRATE 25 MG TABLET (FP) PO SCH ×2 (17:22→22:28)
[2023-08-02] MEDS: PATIENT'S OWN MEDICATION (NON-FORMULARY) (Tizanidine Hcl [Tizanidine Hcl] 4 MG Tablet) PO SCH ×3 (17:35→17:39)
[2023-08-02] MEDS: UMECLIDINIUM/VILANTEROL (ANORO) 62.5/25 MCG INHALER IH SCH (17:36)
[2023-08-02] MEDS: METOCLOPRAMIDE HCL 10 MG TABLET (FP) PO SCH ×2 (17:37→22:28)
[2023-08-02] MEDS: ENOXAPARIN NA (PORCINE) 100 MG/1 ML DISP.SYRIN SQ SCH (22:28)
[2023-08-02] MEDS: ATORVASTATIN CA 20 MG TABLET (FP) PO SCH (22:28)
[2023-08-02] MEDS: NORTRIPTYLINE HCL 25 MG CAPSULE PO SCH (22:28)
[2023-08-03] MEDS: PIPERACILLIN/TAZOB 2.25 GM 2.25 GM in DEXTROSE 5%-WATER - 50 ML IVPB SCH ×3 (05:15→21:27)
[2023-08-03] MEDS ORDERED: TAMSULOSIN HCL 0.4 MG CAP PO SCH (08:30)
[2023-08-03] MEDS ORDERED: amLODIPine BESYLATE 5 MG TABLET (FP) PO SCH (10:00)
[2023-08-03] MEDS ORDERED: PANTOPRAZOLE 40 MG TABLET PO SCH (10:00)
[2023-08-03] MEDS: ENOXAPARIN NA (PORCINE) 100 MG/1 ML DISP.SYRIN SQ SCH (10:07)
[2023-08-03] MEDS: METOPROLOL TARTRATE 25 MG TABLET (FP) PO SCH ×2 (10:08→21:27)
[2023-08-03] MEDS: TAMSULOSIN HCL 0.4 MG CAP PO SCH (10:08)
[2023-08-03] MEDS: PANTOPRAZOLE 40 MG TABLET PO SCH (10:08)
[2023-08-03] MEDS: amLODIPine BESYLATE 5 MG TABLET (FP) PO SCH (10:08)
[2023-08-03] MEDS: METOCLOPRAMIDE HCL 10 MG TABLET (FP) PO SCH ×2 (10:08→21:27)
[2023-08-03] MEDS: UMECLIDINIUM/VILANTEROL (ANORO) 62.5/25 MCG INHALER IH SCH (10:09)
[2023-08-03] MEDS: COLLAGENASE CLOSTRIDIUM HIST. 30 GRAMS TUBE TP SCH ×2 (10:23→18:18)
[2023-08-03 10:26] LABS: IRON SERUM 21 ug/dL (50-175); TOTAL IRON BINDING CAPACITY 248 ug/dL (250-450)
[2023-08-03 13:27] LABS: BASO % 0.6 % (0-2.0); HEMATOCRIT 24.6 % (32.4-45.2); HEMOGLOBIN 7.7 GM/dL (10.7-15.3); LYMPH % 37.3 % (8-40); MCH 25.9 pg (25.7-33.7); MCHC 31.3 g/dl (32.0-36.0); MEAN CELL VOLUME 82.9 fl (80-96); NEUT % 51.1 % (42.8-82.8); PLATELET COUNT 293 10^3/uL (134-434); RBC 2.96 M/mm3 (3.60-5.2); RDW 17.7 % (11.6-15.6); WHITE BLOOD COUNT 6.2 K/mm3 (4.0-10.0)
[2023-08-03 13:53] LABS: POTASSIUM 4.2 mmol/L (3.5-5.1)
[2023-08-03 13:54] LABS: CALCIUM 8.3 mg/dL (8.5-10.1)
[2023-08-03 13:55] LABS: BLOOD UREA NITROGEN 9.1 mg/dL (7-18)
[2023-08-03 13:58] LABS: CREATININE 0.4 mg/dL (0.55-1.3)
[2023-08-03 18:31] LABS: N-TERMINAL BNP 1422.9 pg/ml (5-125)
[2023-08-03] MEDS: ATORVASTATIN CA 20 MG TABLET (FP) PO SCH (21:27)
[2023-08-03] MEDS: APIXABAN 5 MG TABLET PO SCH (21:27)
[2023-08-03] MEDS: NORTRIPTYLINE HCL 25 MG CAPSULE PO SCH (21:27)
[2023-08-04] MEDS: PIPERACILLIN/TAZOB 2.25 GM 2.25 GM in DEXTROSE 5%-WATER - 50 ML IVPB SCH ×3 (05:47→21:50)
[2023-08-04] MEDS: UMECLIDINIUM/VILANTEROL (ANORO) 62.5/25 MCG INHALER IH SCH (09:41)
[2023-08-04] MEDS: TAMSULOSIN HCL 0.4 MG CAP PO SCH (09:42)
[2023-08-04] MEDS: PANTOPRAZOLE 40 MG TABLET PO SCH (09:42)
[2023-08-04] MEDS: METOCLOPRAMIDE HCL 10 MG TABLET (FP) PO SCH ×2 (09:42→21:50)
[2023-08-04] MEDS: amLODIPine BESYLATE 5 MG TABLET (FP) PO SCH (09:42)
[2023-08-04] MEDS: METOPROLOL TARTRATE 25 MG TABLET (FP) PO SCH ×2 (09:42→21:50)
[2023-08-04] MEDS: COLLAGENASE CLOSTRIDIUM HIST. 30 GRAMS TUBE TP SCH (09:43)
[2023-08-04] MEDS: APIXABAN 5 MG TABLET PO SCH ×2 (09:45→21:50)
[2023-08-04 09:50] LABS: BASO % 0.5 % (0-2.0); EOS % 1.8 % (0-4.5); HEMATOCRIT 23.9 % (32.4-45.2); HEMOGLOBIN 7.3 GM/dL (10.7-15.3); LYMPH % 31.4 % (8-40); MCHC 30.6 g/dl (32.0-36.0); MEAN CELL VOLUME 81.7 fl (80-96); MEAN PLT VOLUME 7.6 fl (7.5-11.1); NEUT % 57.3 % (42.8-82.8); PLATELET COUNT 270 10^3/uL (134-434); RBC 2.93 M/mm3 (3.60-5.2); RDW 17.8 % (11.6-15.6); WHITE BLOOD COUNT 6.1 K/mm3 (4.0-10.0)
[2023-08-04 09:57] LABS: POTASSIUM 3.8 mmol/L (3.5-5.1)
[2023-08-04 10:00] LABS: CALCIUM 8.8 mg/dL (8.5-10.1)
[2023-08-04 10:01] LABS: BLOOD UREA NITROGEN 6.6 mg/dL (7-18)
[2023-08-04 10:04] LABS: CREATININE 0.4 mg/dL (0.55-1.3)
[2023-08-04 10:08] LABS: N-TERMINAL BNP 1248.8 pg/ml (5-125)
[2023-08-04] MEDS: NORTRIPTYLINE HCL 25 MG CAPSULE PO SCH (21:50)
[2023-08-04] MEDS: ATORVASTATIN CA 20 MG TABLET (FP) PO SCH (21:50)
[2023-08-05] MEDS: PIPERACILLIN/TAZOB 2.25 GM 2.25 GM in DEXTROSE 5%-WATER - 50 ML IVPB SCH ×3 (05:31→22:13)
[2023-08-05] MEDS: TAMSULOSIN HCL 0.4 MG CAP PO SCH (08:25)
[2023-08-05] MEDS: METOCLOPRAMIDE HCL 10 MG TABLET (FP) PO SCH ×2 (09:19→22:14)
[2023-08-05] MEDS: METOPROLOL TARTRATE 25 MG TABLET (FP) PO SCH ×2 (09:19→22:13)
[2023-08-05] MEDS: APIXABAN 5 MG TABLET PO SCH ×2 (09:19→22:14)
[2023-08-05] MEDS: PANTOPRAZOLE 40 MG TABLET PO SCH (09:19)
[2023-08-05] MEDS: amLODIPine BESYLATE 5 MG TABLET (FP) PO SCH (09:19)
[2023-08-05] MEDS: COLLAGENASE CLOSTRIDIUM HIST. 30 GRAMS TUBE TP SCH (09:20)
[2023-08-05 10:11] LABS: BASO % 0.4 % (0-2.0); EOS % 1.6 % (0-4.5); HEMATOCRIT 26.1 % (32.4-45.2); LYMPH % 28.4 % (8-40); MCH 25.2 pg (25.7-33.7); MCHC 30.6 g/dl (32.0-36.0); MEAN CELL VOLUME 82.4 fl (80-96); NEUT % 61.6 % (42.8-82.8); PLATELET COUNT 318 10^3/uL (134-434); RBC 3.17 M/mm3 (3.60-5.2); RDW 18.2 % (11.6-15.6)
[2023-08-05 10:39] LABS: POTASSIUM 4.4 mmol/L (3.5-5.1)
[2023-08-05 10:41] LABS: CALCIUM 9.5 mg/dL (8.5-10.1)
[2023-08-05 10:42] LABS: BLOOD UREA NITROGEN 13.9 mg/dL (7-18)
[2023-08-05 10:44] LABS: CREATININE 0.5 mg/dL (0.55-1.3)
[2023-08-05] MEDS: UMECLIDINIUM/VILANTEROL (ANORO) 62.5/25 MCG INHALER IH SCH (12:17)
[2023-08-05] MEDS: NORTRIPTYLINE HCL 25 MG CAPSULE PO SCH (22:13)
[2023-08-05] MEDS: ATORVASTATIN CA 20 MG TABLET (FP) PO SCH (22:14)
[2023-08-06] MEDS: PIPERACILLIN/TAZOB 2.25 GM 2.25 GM in DEXTROSE 5%-WATER - 50 ML IVPB SCH (05:27)
[2023-08-06] MEDS: TAMSULOSIN HCL 0.4 MG CAP PO SCH (08:27)
[2023-08-06] MEDS: METOPROLOL TARTRATE 25 MG TABLET (FP) PO SCH ×2 (09:15→21:17)
[2023-08-06 09:16] LABS: BASO % 0.5 % (0-2.0); EOS % 1.7 % (0-4.5); HEMATOCRIT 25.9 % (32.4-45.2); HEMOGLOBIN 8.1 GM/dL (10.7-15.3); MCH 25.6 pg (25.7-33.7); MCHC 31.2 g/dl (32.0-36.0); MEAN CELL VOLUME 82.1 fl (80-96); MONO % 8.9 % (3.8-10.2); NEUT % 65.9 % (42.8-82.8); PLATELET COUNT 307 10^3/uL (134-434); RBC 3.15 M/mm3 (3.60-5.2); RDW 17.7 % (11.6-15.6); WHITE BLOOD COUNT 7.8 K/mm3 (4.0-10.0)
[2023-08-06] MEDS: APIXABAN 5 MG TABLET PO SCH ×2 (09:16→21:17)
[2023-08-06] MEDS: amLODIPine BESYLATE 5 MG TABLET (FP) PO SCH (09:16)
[2023-08-06] MEDS: METOCLOPRAMIDE HCL 10 MG TABLET (FP) PO SCH ×2 (09:16→21:17)
[2023-08-06] MEDS: PANTOPRAZOLE 40 MG TABLET PO SCH (09:16)
[2023-08-06] MEDS: UMECLIDINIUM/VILANTEROL (ANORO) 62.5/25 MCG INHALER IH SCH (09:16)
[2023-08-06 09:29] LABS: POTASSIUM 4.2 mmol/L (3.5-5.1)
[2023-08-06 09:31] LABS: CALCIUM 8.6 mg/dL (8.5-10.1)
[2023-08-06 09:32] LABS: BLOOD UREA NITROGEN 9.4 mg/dL (7-18)
[2023-08-06 09:35] LABS: CREATININE 0.5 mg/dL (0.55-1.3)
[2023-08-06] MEDS: BANATROL PLUS POWDER PACKET PO SCH ×2 (15:16→21:18)
[2023-08-06] MEDS: NORTRIPTYLINE HCL 25 MG CAPSULE PO SCH (21:17)
[2023-08-06] MEDS: ATORVASTATIN CA 20 MG TABLET (FP) PO SCH (21:17)
[2023-08-07] MEDS: BANATROL PLUS POWDER PACKET PO SCH (05:28)
[2023-08-07 05:45] VITALS: RESP 18
[2023-08-07] MEDS ORDERED: AMOX TR/POT CLAV 500MG/125MG TABLETS (FP) PO SCH (08:00)
[2023-08-07 09:00] LABS: BASO % 0.4 % (0-2.0); EOS % 1.3 % (0-4.5); HEMATOCRIT 26.9 % (32.4-45.2); HEMOGLOBIN 8.4 GM/dL (10.7-15.3); LYMPH % 23.5 % (8-40); MCH 25.9 pg (25.7-33.7); MCHC 31.3 g/dl (32.0-36.0); MEAN PLT VOLUME 8.2 fl (7.5-11.1); MONO % 7.3 % (3.8-10.2); NEUT % 67.5 % (42.8-82.8); PLATELET COUNT 332 10^3/uL (134-434); RBC 3.24 M/mm3 (3.60-5.2); RDW 18.2 % (11.6-15.6); WHITE BLOOD COUNT 9.7 K/mm3 (4.0-10.0)
[2023-08-07 09:16] LABS: POTASSIUM 4.4 mmol/L (3.5-5.1)
[2023-08-07 09:22] LABS: CALCIUM 8.8 mg/dL (8.5-10.1)
[2023-08-07 09:23] LABS: BLOOD UREA NITROGEN 13.8 mg/dL (7-18)
[2023-08-07 09:26] LABS: CREATININE 0.5 mg/dL (0.55-1.3)
[2023-08-07] MEDS: METOPROLOL TARTRATE 25 MG TABLET (FP) PO SCH (10:34)
[2023-08-07] MEDS: amLODIPine BESYLATE 5 MG TABLET (FP) PO SCH (10:34)
[2023-08-07] MEDS: APIXABAN 5 MG TABLET PO SCH (10:34)
[2023-08-07] MEDS: PANTOPRAZOLE 40 MG TABLET PO SCH (10:34)
[2023-08-07] MEDS: TAMSULOSIN HCL 0.4 MG CAP PO SCH (10:34)
[2023-08-07] MEDS: METOCLOPRAMIDE HCL 10 MG TABLET (FP) PO SCH (10:34)
[2023-08-07] MEDS: UMECLIDINIUM/VILANTEROL (ANORO) 62.5/25 MCG INHALER IH SCH (10:38)
[2023-08-07 12:42] VITALS: BP 128/53; PULSE 78; TEMP 98.1
[2023-08-07] MEDS: PATIENT'S OWN MEDICATION (NON-FORMULARY) (Tizanidine Hcl [Tizanidine Hcl] 4 MG) PO SCH ×2 (13:16→13:17)
== END 2023-08-07 13:04 | disposition home health service (06) | DRG 571 ==
LOC: JER 02:15 → JERBED 05:37 → J8W 17:47
PROVIDERS: ADMIT Internal Medicine; ATTEND Nurse Practitioner Family
PROC: 0JBR0ZZ Excision of Left Foot Subcutaneous Tissue and Fascia, Open Approach (ICD-10-PCS; principal; 2023-08-02 10:30)
DX: L89.620 Pressure ulcer of left heel, unstageable (principal); I82.403 Acute embolism and thrombosis of unspecified deep veins of lower extremity, bilateral; N17.9 Acute kidney failure, unspecified; Z68.41 Body mass index [BMI] 40.0-44.9, adult; L08.9 Local infection of the skin and subcutaneous tissue, unspecified; I11.0 Hypertensive heart disease with heart failure; J44.9 Chronic obstructive pulmonary disease, unspecified; E78.5 Hyperlipidemia, unspecified; R19.7 Diarrhea, unspecified; E87.6 Hypokalemia; I73.9 Peripheral vascular disease, unspecified; E11.51 Type 2 diabetes mellitus with diabetic peripheral angiopathy without gangrene; D64.9 Anemia, unspecified; E66.01 Morbid (severe) obesity due to excess calories; E86.0 Dehydration
CPT/HCPCS: 36415; 71045-TC-FY; 73630-TC-LT; 78315-TC; 80048; 80053; 81003; 82272; 82570; 83540; 83550; 83735; 83880; 84300; 85025; 85045; 85610; 85651; 85730; 86140; 86850; 86900; 86901; 87040; 87070; 87205; 88304-TC; 93005; 93010; 93926-TC; 94760; 99285-25; A9503

== ENCOUNTER 2023-08-20 19:30 | Inpatient (IN) | payer OTHER ==
[2023-08-20 19:49] VITALS: BMI 36.6
[2023-08-20] MEDS ORDERED: SODIUM CHLORIDE 0.9% 500 ML INFUS.BAG IV ONE (20:51)
[2023-08-20] MEDS ORDERED: VANCOMYCIN 1,000 MG in DEXTROSE 5%-WATER - 250 ML IVPB ONE (23:21)
[2023-08-20] MEDS ORDERED: PIPERACILLIN/TAZOB 4.5 GM 4.5 GM in DEXTROSE 5%-WATER 100 ML IVPB ONE (23:21)
[2023-08-20 23:40] LABS: CHLORIDE 102 mmol/L (98-107); SODIUM 137 mmol/L (136-145)
[2023-08-20 23:42] LABS: ALBUMIN 2.5 g/dl (3.4-5.0); CALCIUM 9.1 mg/dL (8.5-10.1); CO2 25 mmol/L (21-32); GLUCOSE,RANDOM 118 mg/dL (74-106)
[2023-08-20 23:45] LABS: CREATININE 0.9 mg/dL (0.55-1.3); SGPT/ALT 10 U/L (13-61)
[2023-08-20 23:46] LABS: SGOT/AST 13 U/L (15-37)
[2023-08-20 23:47] LABS: BILIRUBIN,TOTAL 0.6 mg/dL (0.2-1); TOT PROT 6.8 g/dl (6.4-8.2)
[2023-08-20 23:48] LABS: ALK PHOS 71 U/L (45-117)
[2023-08-20] MEDS ORDERED: PIPERACILLIN/TAZOB 4.5 GM 4.5 GM/100 ML BAG IVPB ONE (23:52)
[2023-08-20] MEDS ORDERED: VANCOMYCIN 1 GRAM (PRE-DOCKED) 1,000 MG/250 ML BAG IVPB ONE (23:52)
[2023-08-21 00:24] LABS: ANION GAP 10 mmol/L (4-13); BLOOD UREA NITROGEN 45.6 mg/dL (7-18); POTASSIUM 2.7 mmol/L (3.5-5.1)
[2023-08-21 00:27] LABS: BASO % 0.4 % (0-2.0); EOS % 0.3 % (0-4.5); HEMATOCRIT 24.4 % (32.4-45.2); HEMOGLOBIN 7.5 GM/dL (10.7-15.3); LYMPH % 12.6 % (8-40); MCHC 30.9 g/dl (32.0-36.0); MEAN CELL VOLUME 77.7 fl (80-96); MONO % 9.3 % (3.8-10.2); NEUT % 77.4 % (42.8-82.8); PLATELET COUNT 543 10^3/uL (134-434); RBC 3.14 M/mm3 (3.60-5.2); RDW 19.3 % (11.6-15.6); WHITE BLOOD COUNT 19.4 K/mm3 (4.0-10.0)
[2023-08-21] MEDS ORDERED: POTASSIUM CHLORIDE ORAL LIQUID 20 MEQ/15 ML PO ONE (00:47)
[2023-08-21 01:16] LABS: MAGNESIUM 1.4 mg/dL (1.8-2.4)
[2023-08-21] MEDS ORDERED: SODIUM CHLORIDE 0.9% 500 ML INFUS.BAG IV ONE (01:35)
[2023-08-21] MEDS ORDERED: MAGNESIUM SULF 50% (8.12 MEQ/2 ML-1 GM VIAL) IVPB ONE (01:36)
[2023-08-21] MEDS ORDERED: POTASSIUM CHLORIDE ORAL LIQUID 20 MEQ/15 ML ONE (01:58)
[2023-08-21] MEDS ORDERED: KCL 10 MEQ IVPB 30 MEQ/300 ML INFUS.BAG IVPB ONE (01:59)
[2023-08-21] MEDS ORDERED: MAGNESIUM SULFATE IN WATER 2 GM/50 ML IVPB IVPB ONE ×2 (01:59→07:28)
[2023-08-21] MEDS: KCL 10 MEQ IVPB 10 MEQ/100 ML INFUS.BAG IVPB SCH ×5 (03:22→16:20)
[2023-08-21 04:18] LABS: PH,URINE 5.5 (5.0-8.0); URINE APPEARANCE CLEAR; URINE BILIRUBIN NEGATIVE (NEGATIVE); URINE COLOR YELLOW; URINE GLUCOSE (UA) NEGATIVE (NEGATIVE); URINE KETONE NEGATIVE (NEGATIVE); URINE LEUK ESTERASE NEGATIVE (NEGATIVE); URINE NITRITE NEGATIVE (NEGATIVE); URINE PROTEIN NEGATIVE (NEGATIVE); URINE UROBILINOGEN 0.2 mg/dL (0.2-1.0)
[2023-08-21] MEDS ORDERED: DEXTROSE 50%-WATER - 25 GM/50 ML VIAL IVPUSH ONE (06:13)
[2023-08-21] MEDS ORDERED: POTASSIUM CHLORIDE TABS 20 MEQ TABLET.ER (FP) PO ONE ×2 (06:49→07:28)
[2023-08-21] MEDS ORDERED: MAGNESIUM 2GM/50ML STERILE WATER IVPB IVPB ONE (06:49)
[2023-08-21] MEDS ORDERED: SODIUM CHLORIDE 1,000 ML IV SCH (07:00)
[2023-08-21] MEDS ORDERED: KCL 10 MEQ IVPB 10 MEQ/100 ML INFUS.BAG IVPB SCH (07:00)
[2023-08-21] MEDS ORDERED: KCL 10 MEQ IVPB 10 MEQ/100 ML INFUS.BAG IVPB ONE (07:28)
[2023-08-21] MEDS ORDERED: LOPERAMIDE HCL 2 MG CAPSULE PO PRN (08:03)
[2023-08-21 09:45] LABS: RETICULOCYTES 1.59 % (0.5-1.5)
[2023-08-21] MEDS ORDERED: MEROPENEM 1 GM VIAL (RESTRICTED TO ID) IVPB ONE ×2 (09:51→16:09)
[2023-08-21] MEDS ORDERED: METOPROLOL TARTRATE 25 MG TABLET (FP) PO SCH (10:00)
[2023-08-21] MEDS ORDERED: MEROPENEM 1 GM in DEXTROSE 5%-WATER 100 ML IVPB SCH (10:00)
[2023-08-21] MEDS ORDERED: ENOXAPARIN NA (PORCINE) 40 MG/0.4 ML DISP.SYRIN SQ SCH (10:00)
[2023-08-21] MEDS: APIXABAN 5 MG TABLET PO SCH ×2 (10:07→22:04)
[2023-08-21] MEDS: METOCLOPRAMIDE HCL 10 MG TABLET (FP) PO SCH ×2 (10:08→22:04)
[2023-08-21] MEDS ORDERED: SODIUM CHLORIDE 1,000 ML IV STA (10:12)
[2023-08-21] MEDS: SODIUM CHLORIDE 1,000 ML IV SCH (10:28)
[2023-08-21] MEDS ORDERED: KCL 10 MEQ IVPB 20 MEQ/200 ML INFUS.BAG IVPB ONE (16:09)
[2023-08-21] MEDS: MEROPENEM 1 GM in DEXTROSE 5%-WATER 100 ML IVPB SCH (17:25)
[2023-08-21] MEDS ORDERED: ATORVASTATIN CA 20 MG TABLET (FP) ONE (21:13)
[2023-08-21] MEDS ORDERED: APIXABAN 5 MG TABLET ONE (21:13)
[2023-08-21] MEDS ORDERED: MONTELUKAST NA 10 MG TABLET ONE (21:13)
[2023-08-21] MEDS ORDERED: METOCLOPRAMIDE HCL 10 MG TABLET (FP) PO ONE (21:14)
[2023-08-21] MEDS: MONTELUKAST NA 10 MG TABLET PO SCH (22:04)
[2023-08-21] MEDS: ATORVASTATIN CA 20 MG TABLET (FP) PO SCH (22:04)
[2023-08-22] MEDS ORDERED: VANCOMYCIN 500 MG VIAL (RESTRICTED TO ID ONLY) ONE (00:27)
[2023-08-22] MEDS ORDERED: VANCOMYCIN 1 GRAM (PRE-DOCKED) 1,000 MG/250 ML BAG IVPB ONE (00:27)
[2023-08-22] MEDS ORDERED: MEROPENEM 1 GM VIAL (RESTRICTED TO ID) IVPB ONE (00:27)
[2023-08-22] MEDS: VANCOMYCIN PREMIX 1.5 GM 1,500 MG/300 ML BAG IVPB SCH (00:41)
[2023-08-22] MEDS ORDERED: VANCOMYCIN HCL 1,500 MG in DEXTROSE 5%-WATER - 500 ML IVPB SCH (00:45)
[2023-08-22] MEDS: MEROPENEM 1 GM in DEXTROSE 5%-WATER 100 ML IVPB SCH ×3 (01:57→17:26)
[2023-08-22 03:52] LABS: INR 1.85 (0.83-1.09); PROTHROMBIN TIME (PATIENT) 21.3 SEC (9.7-13.0)
[2023-08-22 03:55] LABS: ACTIVATED PTT 30.8 SECONDS (25.2-36.5)
[2023-08-22 04:06] LABS: POTASSIUM 3.1 mmol/L (3.5-5.1)
[2023-08-22 04:08] LABS: CALCIUM 8.1 mg/dL (8.5-10.1)
[2023-08-22 04:11] LABS: CREATININE 0.5 mg/dL (0.55-1.3)
[2023-08-22 04:13] LABS: BILIRUBIN,TOTAL 0.4 mg/dL (0.2-1); TOT PROT 5.9 g/dl (6.4-8.2)
[2023-08-22 04:23] LABS: BLOOD UREA NITROGEN 19.3 mg/dL (7-18)
[2023-08-22 08:47] LABS: LACTIC ACID 2.4 mmol/L (0.4-2.0)
[2023-08-22 09:21] LABS: MAGNESIUM 1.4 mg/dL (1.8-2.4)
[2023-08-22 09:25] LABS: PHOSPHOROUS 2.5 mg/dL (2.5-4.9)
[2023-08-22] MEDS: POTASSIUM CHLORIDE TABS 20 MEQ TABLET.ER (FP) PO ONE ×2 (09:53→10:30)
[2023-08-22] MEDS: METOCLOPRAMIDE HCL 10 MG TABLET (FP) PO SCH ×2 (09:54→22:23)
[2023-08-22] MEDS: APIXABAN 5 MG TABLET PO SCH ×2 (09:54→22:23)
[2023-08-22] MEDS ORDERED: MAGNESIUM SULF 50% (8.12 MEQ/2 ML-1 GM VIAL) IVPB ONE ×2 (12:30→14:30)
[2023-08-22] MEDS ORDERED: POTASSIUM CHLORIDE ORAL LIQUID 20 MEQ/15 ML PO ONE ×2 (14:30→16:30)
[2023-08-22] MEDS: METOPROLOL TARTRATE 25 MG TABLET (FP) PO SCH ×2 (15:02→22:23)
[2023-08-22] MEDS: SODIUM CHLORIDE 1,000 ML IV SCH (15:04)
[2023-08-22] MEDS ORDERED: SODIUM CHLORIDE 1,000 ML IV SCH (15:34)
[2023-08-22 16:08] LABS: LACTIC ACID 2.7 mmol/L (0.4-2.0)
[2023-08-22] MEDS: COLLAGENASE CLOSTRIDIUM HIST. 30 GRAMS TUBE TP SCH (16:44)
[2023-08-22] MEDS: ATORVASTATIN CA 20 MG TABLET (FP) PO SCH (22:23)
[2023-08-22] MEDS: MONTELUKAST NA 10 MG TABLET PO SCH (22:23)
[2023-08-23] MEDS: VANCOMYCIN PREMIX 1.5 GM 1,500 MG/300 ML BAG IVPB SCH ×2 (00:35→23:33)
[2023-08-23] MEDS: MEROPENEM 1 GM in DEXTROSE 5%-WATER 100 ML IVPB SCH ×3 (02:49→17:34)
[2023-08-23 08:17] LABS: BASO % 0.4 % (0-2.0); EOS % 1.6 % (0-4.5); HEMATOCRIT 23.8 % (32.4-45.2); HEMOGLOBIN 7.1 GM/dL (10.7-15.3); LYMPH % 21.4 % (8-40); MCH 24.1 pg (25.7-33.7); MCHC 29.8 g/dl (32.0-36.0); MEAN CELL VOLUME 80.9 fl (80-96); MEAN PLT VOLUME 7.4 fl (7.5-11.1); MONO % 9.5 % (3.8-10.2); NEUT % 67.1 % (42.8-82.8); PLATELET COUNT 466 10^3/uL (134-434); RBC 2.94 M/mm3 (3.60-5.2); RDW 19.1 % (11.6-15.6)
[2023-08-23] MEDS ORDERED: LACTATED RINGERS SOLUTION 1,000 ML/1,000 ML INFUS.BAG IV SCH (08:30)
[2023-08-23 08:31] LABS: POTASSIUM 3.9 mmol/L (3.5-5.1)
[2023-08-23 08:38] LABS: BLOOD UREA NITROGEN 8.7 mg/dL (7-18)
[2023-08-23 08:39] LABS: PHOSPHOROUS 2.1 mg/dL (2.5-4.9)
[2023-08-23 08:40] LABS: BILIRUBIN,TOTAL 0.4 mg/dL (0.2-1); CALCIUM 7.3 mg/dL (8.5-10.1); TOT PROT 5.8 g/dl (6.4-8.2)
[2023-08-23 08:42] LABS: CREATININE 0.4 mg/dL (0.55-1.3); MAGNESIUM 1.5 mg/dL (1.8-2.4)
[2023-08-23] MEDS: METOPROLOL TARTRATE 25 MG TABLET (FP) PO SCH ×2 (09:19→22:18)
[2023-08-23] MEDS: APIXABAN 5 MG TABLET PO SCH ×2 (09:19→22:17)
[2023-08-23] MEDS: METOCLOPRAMIDE HCL 10 MG TABLET (FP) PO SCH ×2 (09:19→22:18)
[2023-08-23] MEDS: COLLAGENASE CLOSTRIDIUM HIST. 30 GRAMS TUBE TP SCH (10:07)
[2023-08-23] MEDS ORDERED: MAGNESIUM SULF 50% (8.12 MEQ/2 ML-1 GM VIAL) IVPB ONE (11:00)
[2023-08-23] MEDS ORDERED: NAPH,MB-DB/K PH,MBDB POWDER PACKET PO ONE (11:00)
[2023-08-23] MEDS ORDERED: ALBUTEROL SO4 2.5/IPRATROPIUM 0.5 INH SOL 3 ML VIAL.NEB. NEB PRN (13:48)
[2023-08-23] MEDS ORDERED: FUROSEMIDE 40 MG/4 ML INJECTABLE VIAL IVPUSH ONE (14:00)
[2023-08-23] MEDS ORDERED: ACETAMINOPHEN 1000 MG/100 ML BAG IVPB ONE (16:43)
[2023-08-23] MEDS ORDERED: traMADol HCL 50 MG TABLET PO ONE (18:47)
[2023-08-23] MEDS: ATORVASTATIN CA 20 MG TABLET (FP) PO SCH (22:17)
[2023-08-23] MEDS: MONTELUKAST NA 10 MG TABLET PO SCH (22:18)
[2023-08-23] MEDS: FLUTICASONE/SALMETEROL (WIXELA) 100 MCG/50 MCG DISKUS IH SCH (22:18)
[2023-08-24] MEDS: MEROPENEM 1 GM in DEXTROSE 5%-WATER 100 ML IVPB SCH ×3 (01:18→18:18)
[2023-08-24] MEDS: ACETAMINOPHEN 1000 MG/100 ML BAG IVPB PRN ×2 (02:08→16:06)
[2023-08-24 08:48] LABS: HEMATOCRIT 24.6 % (32.4-45.2); HEMOGLOBIN 7.2 GM/dL (10.7-15.3); MCH 23.6 pg (25.7-33.7); MCHC 29.3 g/dl (32.0-36.0); MEAN CELL VOLUME 80.4 fl (80-96); MEAN PLT VOLUME 8.3 fl (7.5-11.1); PLATELET COUNT 378 10^3/uL (134-434); RBC 3.06 M/mm3 (3.60-5.2); RDW 19.5 % (11.6-15.6); WHITE BLOOD COUNT 13.2 K/mm3 (4.0-10.0)
[2023-08-24] MEDS: METOCLOPRAMIDE HCL 10 MG TABLET (FP) PO SCH ×2 (09:04→21:34)
[2023-08-24] MEDS: APIXABAN 5 MG TABLET PO SCH ×2 (09:04→21:34)
[2023-08-24] MEDS: METOPROLOL TARTRATE 25 MG TABLET (FP) PO SCH ×2 (09:04→21:34)
[2023-08-24] MEDS: COLLAGENASE CLOSTRIDIUM HIST. 30 GRAMS TUBE TP SCH (09:05)
[2023-08-24] MEDS: FLUTICASONE/SALMETEROL (WIXELA) 100 MCG/50 MCG DISKUS IH SCH ×2 (09:05→21:35)
[2023-08-24 09:27] LABS: POTASSIUM 4.2 mmol/L (3.5-5.1)
[2023-08-24 09:32] LABS: BLOOD UREA NITROGEN 6.1 mg/dL (7-18); MAGNESIUM 1.2 mg/dL (1.8-2.4)
[2023-08-24 09:34] LABS: CREATININE 0.4 mg/dL (0.55-1.3); PHOSPHOROUS 2.7 mg/dL (2.5-4.9)
[2023-08-24 09:36] LABS: BILIRUBIN,TOTAL 0.5 mg/dL (0.2-1); TOT PROT 5.8 g/dl (6.4-8.2)
[2023-08-24] MEDS: VANCOMYCIN/WATER FOR INJ (PEG) 1,000 MG/200 ML BAG IVPB SCH ×2 (12:20→23:07)
[2023-08-24] MEDS ORDERED: FUROSEMIDE 40 MG/4 ML INJECTABLE VIAL IVPUSH ONE (17:06)
[2023-08-24] MEDS: AMINO ACIDS/PROTEIN HYDROLYS 30 ML LIQUID.PKT PO SCH (18:19)
[2023-08-24] MEDS: ASCORBIC ACID 500 MG TABLET (FP) PO SCH ×2 (18:19→21:34)
[2023-08-24] MEDS: METHYL SALICYLATE/MENTHOL OINT 30 GM TUBE TP SCH (18:21)
[2023-08-24] MEDS: ATORVASTATIN CA 20 MG TABLET (FP) PO SCH (21:34)
[2023-08-24] MEDS: MONTELUKAST NA 10 MG TABLET PO SCH (21:34)
[2023-08-25] MEDS: MEROPENEM 1 GM in DEXTROSE 5%-WATER 100 ML IVPB SCH ×3 (02:14→17:28)
[2023-08-25 08:25] LABS: BASO % 0.9 % (0-2.0); EOS % 2.4 % (0-4.5); HEMATOCRIT 25.2 % (32.4-45.2); HEMOGLOBIN 7.7 GM/dL (10.7-15.3); LYMPH % 20.3 % (8-40); MCH 24.7 pg (25.7-33.7); MCHC 30.4 g/dl (32.0-36.0); MEAN CELL VOLUME 81.4 fl (80-96); MEAN PLT VOLUME 7.4 fl (7.5-11.1); MONO % 8.4 % (3.8-10.2); PLATELET COUNT 445 10^3/uL (134-434); RDW 20.1 % (11.6-15.6); WHITE BLOOD COUNT 12.4 K/mm3 (4.0-10.0)
[2023-08-25 08:39] LABS: CHLORIDE 109 mmol/L (98-107); POTASSIUM 4.4 mmol/L (3.5-5.1); SODIUM 141 mmol/L (136-145)
[2023-08-25 08:41] LABS: ANION GAP 7 mmol/L (4-13); BLOOD UREA NITROGEN 5.3 mg/dL (7-18); CALCIUM 7.8 mg/dL (8.5-10.1); CO2 25 mmol/L (21-32); GLUCOSE,RANDOM 98 mg/dL (74-106)
[2023-08-25 08:44] LABS: SGPT/ALT 8 U/L (13-61)
[2023-08-25 08:45] LABS: CREATININE 0.4 mg/dL (0.55-1.3); PHOSPHOROUS 3.1 mg/dL (2.5-4.9); SGOT/AST 12 U/L (15-37)
[2023-08-25 08:46] LABS: BILIRUBIN,TOTAL 0.3 mg/dL (0.2-1); TOT PROT 5.7 g/dl (6.4-8.2)
[2023-08-25 08:47] LABS: ALK PHOS 58 U/L (45-117)
[2023-08-25 08:52] LABS: MAGNESIUM 0.9 mg/dL (1.8-2.4)
[2023-08-25] MEDS ORDERED: MAGNESIUM SULFATE IN WATER 2 GM/50 ML IVPB IVPB ONE ×2 (09:30→16:00)
[2023-08-25] MEDS: APIXABAN 5 MG TABLET PO SCH ×2 (09:57→21:48)
[2023-08-25] MEDS: ASCORBIC ACID 500 MG TABLET (FP) PO SCH ×2 (09:57→21:48)
[2023-08-25] MEDS: METOPROLOL TARTRATE 25 MG TABLET (FP) PO SCH ×2 (09:57→21:48)
[2023-08-25] MEDS: AMINO ACIDS/PROTEIN HYDROLYS 30 ML LIQUID.PKT PO SCH ×2 (09:58→17:28)
[2023-08-25] MEDS: FLUTICASONE/SALMETEROL (WIXELA) 100 MCG/50 MCG DISKUS IH SCH ×2 (09:58→21:49)
[2023-08-25] MEDS: FUROSEMIDE 40 MG TABLET (FP) PO SCH (09:58)
[2023-08-25] MEDS: METOCLOPRAMIDE HCL 10 MG TABLET (FP) PO SCH ×2 (09:58→21:48)
[2023-08-25] MEDS: METHYL SALICYLATE/MENTHOL OINT 30 GM TUBE TP SCH (09:59)
[2023-08-25] MEDS: VANCOMYCIN 1,000 MG in DEXTROSE 5%-WATER - 250 ML IVPB SCH (12:03)
[2023-08-25] MEDS: COLLAGENASE CLOSTRIDIUM HIST. 30 GRAMS TUBE TP SCH (13:18)
[2023-08-25] MEDS: AMOX TR/POT CLAV 875MG/125MG TABLETS (FP) PO SCH (17:29)
[2023-08-25] MEDS ORDERED: MAGNESIUM SULF 50% (8.12 MEQ/2 ML-1 GM VIAL) IVPB ONE (17:30)
[2023-08-25] MEDS ORDERED: MAGNESIUM SULF 50% (8.12 MEQ/2 ML-1 GM VIAL) IVPB SCH (17:30)
[2023-08-25] MEDS: MULTIVITAMINS (DAILY MVI) TABLET (FP) PO SCH (17:41)
[2023-08-25] MEDS: ATORVASTATIN CA 20 MG TABLET (FP) PO SCH (21:48)
[2023-08-25] MEDS: MONTELUKAST NA 10 MG TABLET PO SCH (21:48)
[2023-08-26] MEDS: MEROPENEM 1 GM in DEXTROSE 5%-WATER 100 ML IVPB SCH ×3 (01:48→17:02)
[2023-08-26 08:42] LABS: BASO % 0.2 % (0-2.0); EOS % 1.9 % (0-4.5); HEMATOCRIT 23.9 % (32.4-45.2); HEMOGLOBIN 7.3 GM/dL (10.7-15.3); LYMPH % 22.3 % (8-40); MCH 24.4 pg (25.7-33.7); MCHC 30.5 g/dl (32.0-36.0); MEAN CELL VOLUME 80.2 fl (80-96); MEAN PLT VOLUME 7.4 fl (7.5-11.1); MONO % 8.1 % (3.8-10.2); NEUT % 67.5 % (42.8-82.8); PLATELET COUNT 444 10^3/uL (134-434); RBC 2.99 M/mm3 (3.60-5.2); RDW 20.3 % (11.6-15.6); WHITE BLOOD COUNT 8.8 K/mm3 (4.0-10.0)
[2023-08-26 09:03] LABS: POTASSIUM 3.6 mmol/L (3.5-5.1)
[2023-08-26 09:08] LABS: CALCIUM 7.7 mg/dL (8.5-10.1)
[2023-08-26 09:09] LABS: BLOOD UREA NITROGEN 4.3 mg/dL (7-18); MAGNESIUM 1.4 mg/dL (1.8-2.4)
[2023-08-26 09:12] LABS: CREATININE 0.4 mg/dL (0.55-1.3); PHOSPHOROUS 3.1 mg/dL (2.5-4.9)
[2023-08-26] MEDS ORDERED: MAGNESIUM 2GM/50ML STERILE WATER IVPB IVPB ONE ×2 (09:21→14:00)
[2023-08-26] MEDS: AMOX TR/POT CLAV 875MG/125MG TABLETS (FP) PO SCH ×2 (09:45→17:03)
[2023-08-26] MEDS: AMINO ACIDS/PROTEIN HYDROLYS 30 ML LIQUID.PKT PO SCH ×2 (09:45→17:02)
[2023-08-26] MEDS: FLUTICASONE/SALMETEROL (WIXELA) 100 MCG/50 MCG DISKUS IH SCH ×2 (09:45→21:14)
[2023-08-26] MEDS: METHYL SALICYLATE/MENTHOL OINT 30 GM TUBE TP SCH (09:45)
[2023-08-26] MEDS: ASCORBIC ACID 500 MG TABLET (FP) PO SCH ×2 (09:46→21:14)
[2023-08-26] MEDS: METOCLOPRAMIDE HCL 10 MG TABLET (FP) PO SCH ×2 (09:46→21:14)
[2023-08-26] MEDS: FUROSEMIDE 40 MG TABLET (FP) PO SCH (09:46)
[2023-08-26] MEDS: COLLAGENASE CLOSTRIDIUM HIST. 30 GRAMS TUBE TP SCH (09:46)
[2023-08-26] MEDS: METOPROLOL TARTRATE 25 MG TABLET (FP) PO SCH ×2 (09:46→21:14)
[2023-08-26] MEDS: APIXABAN 5 MG TABLET PO SCH ×2 (09:46→21:14)
[2023-08-26] MEDS: MULTIVITAMINS (DAILY MVI) TABLET (FP) PO SCH (09:47)
[2023-08-26] MEDS ORDERED: POTASSIUM CHLORIDE ORAL LIQUID 20 MEQ/15 ML PO ONE ×2 (11:30→16:10)
[2023-08-26] MEDS: ATORVASTATIN CA 20 MG TABLET (FP) PO SCH (21:14)
[2023-08-26] MEDS: MONTELUKAST NA 10 MG TABLET PO SCH (21:14)
[2023-08-27] MEDS: MEROPENEM 1 GM in DEXTROSE 5%-WATER 100 ML IVPB SCH ×3 (01:36→17:48)
[2023-08-27 09:30] LABS: HEMATOCRIT 24.1 % (32.4-45.2); HEMOGLOBIN 7.4 GM/dL (10.7-15.3); MCH 24.8 pg (25.7-33.7); MCHC 30.8 g/dl (32.0-36.0); MEAN CELL VOLUME 80.7 fl (80-96); MEAN PLT VOLUME 7.3 fl (7.5-11.1); PLATELET COUNT 454 10^3/uL (134-434); RBC 2.99 M/mm3 (3.60-5.2); RDW 20.8 % (11.6-15.6); WHITE BLOOD COUNT 9.1 K/mm3 (4.0-10.0)
[2023-08-27 09:44] LABS: POTASSIUM 4.1 mmol/L (3.5-5.1)
[2023-08-27 09:53] LABS: CALCIUM 7.6 mg/dL (8.5-10.1)
[2023-08-27 09:54] LABS: ALBUMIN 2.1 g/dl (3.4-5.0); BLOOD UREA NITROGEN 5.1 mg/dL (7-18); MAGNESIUM 1.3 mg/dL (1.8-2.4)
[2023-08-27 09:56] LABS: PHOSPHOROUS 2.8 mg/dL (2.5-4.9)
[2023-08-27 09:57] LABS: BILIRUBIN,TOTAL 0.6 mg/dL (0.2-1); CREATININE 0.4 mg/dL (0.55-1.3); TOT PROT 5.9 g/dl (6.4-8.2)
[2023-08-27] MEDS: APIXABAN 5 MG TABLET PO SCH ×2 (11:06→21:02)
[2023-08-27] MEDS: AMINO ACIDS/PROTEIN HYDROLYS 30 ML LIQUID.PKT PO SCH ×2 (11:06→17:49)
[2023-08-27] MEDS: FLUTICASONE/SALMETEROL (WIXELA) 100 MCG/50 MCG DISKUS IH SCH ×2 (11:06→21:02)
[2023-08-27] MEDS: FUROSEMIDE 40 MG TABLET (FP) PO SCH (11:06)
[2023-08-27] MEDS: ASCORBIC ACID 500 MG TABLET (FP) PO SCH ×2 (11:06→21:02)
[2023-08-27] MEDS: AMOX TR/POT CLAV 875MG/125MG TABLETS (FP) PO SCH ×2 (11:06→17:49)
[2023-08-27] MEDS: METHYL SALICYLATE/MENTHOL OINT 30 GM TUBE TP SCH (11:07)
[2023-08-27] MEDS: COLLAGENASE CLOSTRIDIUM HIST. 30 GRAMS TUBE TP SCH (11:07)
[2023-08-27] MEDS: METOCLOPRAMIDE HCL 10 MG TABLET (FP) PO SCH ×2 (12:06→21:02)
[2023-08-27] MEDS: MULTIVITAMINS (DAILY MVI) TABLET (FP) PO SCH (12:06)
[2023-08-27] MEDS: METOPROLOL TARTRATE 25 MG TABLET (FP) PO SCH ×2 (12:06→21:02)
[2023-08-27] MEDS: MONTELUKAST NA 10 MG TABLET PO SCH (21:02)
[2023-08-27] MEDS: SIMETHICONE 80 MG TAB.CHEW (FP) PO PRN (21:02)
[2023-08-27] MEDS: ATORVASTATIN CA 20 MG TABLET (FP) PO SCH (21:02)
[2023-08-28] MEDS: MEROPENEM 1 GM in DEXTROSE 5%-WATER 100 ML IVPB SCH ×3 (01:05→17:49)
[2023-08-28 08:46] LABS: BASO % 0.4 % (0-2.0); EOS % 1.6 % (0-4.5); HEMATOCRIT 27.2 % (32.4-45.2); HEMOGLOBIN 8.3 GM/dL (10.7-15.3); LYMPH % 24.1 % (8-40); MCH 24.5 pg (25.7-33.7); MCHC 30.4 g/dl (32.0-36.0); MEAN CELL VOLUME 80.4 fl (80-96); MONO % 7.3 % (3.8-10.2); NEUT % 66.6 % (42.8-82.8); PLATELET COUNT 455 10^3/uL (134-434); RBC 3.38 M/mm3 (3.60-5.2); RDW 21.3 % (11.6-15.6); WHITE BLOOD COUNT 9.4 K/mm3 (4.0-10.0)
[2023-08-28] MEDS: AMOX TR/POT CLAV 875MG/125MG TABLETS (FP) PO SCH ×2 (08:55→17:50)
[2023-08-28] MEDS: AMINO ACIDS/PROTEIN HYDROLYS 30 ML LIQUID.PKT PO SCH ×2 (08:55→17:49)
[2023-08-28 08:59] LABS: POTASSIUM 4.3 mmol/L (3.5-5.1)
[2023-08-28 09:01] LABS: CALCIUM 8.6 mg/dL (8.5-10.1)
[2023-08-28 09:02] LABS: ALBUMIN 2.2 g/dl (3.4-5.0); BLOOD UREA NITROGEN 5.4 mg/dL (7-18); MAGNESIUM 1.3 mg/dL (1.8-2.4)
[2023-08-28 09:05] LABS: CREATININE 0.3 mg/dL (0.55-1.3)
[2023-08-28 09:07] LABS: BILIRUBIN,TOTAL 0.6 mg/dL (0.2-1); TOT PROT 6.3 g/dl (6.4-8.2)
[2023-08-28] MEDS: METOCLOPRAMIDE HCL 10 MG TABLET (FP) PO SCH ×2 (09:22→21:39)
[2023-08-28] MEDS: FUROSEMIDE 40 MG TABLET (FP) PO SCH (09:22)
[2023-08-28] MEDS: ASCORBIC ACID 500 MG TABLET (FP) PO SCH ×2 (09:22→21:39)
[2023-08-28] MEDS: APIXABAN 5 MG TABLET PO SCH ×2 (09:22→21:40)
[2023-08-28] MEDS: METOPROLOL TARTRATE 25 MG TABLET (FP) PO SCH ×2 (09:23→21:40)
[2023-08-28] MEDS: MULTIVITAMINS (DAILY MVI) TABLET (FP) PO SCH (09:23)
[2023-08-28] MEDS: FLUTICASONE/SALMETEROL (WIXELA) 100 MCG/50 MCG DISKUS IH SCH ×2 (09:23→21:41)
[2023-08-28] MEDS: COLLAGENASE CLOSTRIDIUM HIST. 30 GRAMS TUBE TP SCH (09:24)
[2023-08-28] MEDS: METHYL SALICYLATE/MENTHOL OINT 30 GM TUBE TP SCH (09:24)
[2023-08-28 10:05] LABS: ANISOCYTOSIS 2+; MACROCYTOSIS 1+
[2023-08-28] MEDS ORDERED: MAGNESIUM SULFATE IN WATER 2 GM/50 ML IVPB IVPB ONE (11:45)
[2023-08-28] MEDS: ATORVASTATIN CA 20 MG TABLET (FP) PO SCH (21:39)
[2023-08-28] MEDS: MONTELUKAST NA 10 MG TABLET PO SCH (21:40)
[2023-08-28] MEDS: SIMETHICONE 80 MG TAB.CHEW (FP) PO PRN (21:41)
[2023-08-29] MEDS: MEROPENEM 1 GM in DEXTROSE 5%-WATER 100 ML IVPB SCH ×3 (01:50→17:58)
[2023-08-29 08:17] LABS: BASO % 0.4 % (0-2.0); EOS % 1.8 % (0-4.5); HEMOGLOBIN 7.7 GM/dL (10.7-15.3); LYMPH % 20.2 % (8-40); MCHC 29.8 g/dl (32.0-36.0); MEAN CELL VOLUME 80.5 fl (80-96); MEAN PLT VOLUME 7.3 fl (7.5-11.1); MONO % 6.3 % (3.8-10.2); NEUT % 71.3 % (42.8-82.8); PLATELET COUNT 439 10^3/uL (134-434); RBC 3.22 M/mm3 (3.60-5.2); RDW 21.9 % (11.6-15.6); WHITE BLOOD COUNT 11.6 K/mm3 (4.0-10.0)
[2023-08-29 08:21] LABS: POTASSIUM 4.1 mmol/L (3.5-5.1)
[2023-08-29 08:23] LABS: CALCIUM 8.2 mg/dL (8.5-10.1)
[2023-08-29 08:24] LABS: ALBUMIN 2.3 g/dl (3.4-5.0); BLOOD UREA NITROGEN 11.3 mg/dL (7-18); MAGNESIUM 1.5 mg/dL (1.8-2.4)
[2023-08-29 08:27] LABS: CREATININE 0.4 mg/dL (0.55-1.3)
[2023-08-29 08:28] LABS: BILIRUBIN,TOTAL 0.4 mg/dL (0.2-1); TOT PROT 6.3 g/dl (6.4-8.2)
[2023-08-29] MEDS: MULTIVITAMINS (DAILY MVI) TABLET (FP) PO SCH (10:16)
[2023-08-29] MEDS: METOPROLOL TARTRATE 25 MG TABLET (FP) PO SCH ×2 (10:16→21:17)
[2023-08-29] MEDS: AMINO ACIDS/PROTEIN HYDROLYS 30 ML LIQUID.PKT PO SCH ×2 (10:16→17:59)
[2023-08-29] MEDS: FUROSEMIDE 40 MG TABLET (FP) PO SCH (10:16)
[2023-08-29] MEDS: METOCLOPRAMIDE HCL 10 MG TABLET (FP) PO SCH ×2 (10:16→21:16)
[2023-08-29] MEDS: APIXABAN 5 MG TABLET PO SCH ×2 (10:16→21:15)
[2023-08-29] MEDS: ASCORBIC ACID 500 MG TABLET (FP) PO SCH ×2 (10:16→21:16)
[2023-08-29] MEDS: AMOX TR/POT CLAV 875MG/125MG TABLETS (FP) PO SCH ×2 (10:16→17:58)
[2023-08-29] MEDS: FLUTICASONE/SALMETEROL (WIXELA) 100 MCG/50 MCG DISKUS IH SCH ×2 (11:00→21:17)
[2023-08-29] MEDS: COLLAGENASE CLOSTRIDIUM HIST. 30 GRAMS TUBE TP SCH (13:08)
[2023-08-29] MEDS: METHYL SALICYLATE/MENTHOL OINT 30 GM TUBE TP SCH (13:09)
[2023-08-29] MEDS ORDERED: MAGNESIUM 1GM/D5W 100ML - 100 ML IVPB IVPB ONE (19:24)
[2023-08-29] MEDS ORDERED: MAGNESIUM SULFATE IN WATER 2 GM/50 ML IVPB IVPB ONE (20:04)
[2023-08-29] MEDS: MONTELUKAST NA 10 MG TABLET PO SCH (21:15)
[2023-08-29] MEDS: SIMETHICONE 80 MG TAB.CHEW (FP) PO PRN (21:16)
[2023-08-29] MEDS: ATORVASTATIN CA 20 MG TABLET (FP) PO SCH (21:16)
[2023-08-30] MEDS: MEROPENEM 1 GM in DEXTROSE 5%-WATER 100 ML IVPB SCH ×3 (02:07→17:14)
[2023-08-30] MEDS: AMINO ACIDS/PROTEIN HYDROLYS 30 ML LIQUID.PKT PO SCH ×2 (08:52→17:14)
[2023-08-30] MEDS: AMOX TR/POT CLAV 875MG/125MG TABLETS (FP) PO SCH (08:52)
[2023-08-30] MEDS: APIXABAN 5 MG TABLET PO SCH ×2 (09:04→21:37)
[2023-08-30] MEDS: FUROSEMIDE 40 MG TABLET (FP) PO SCH (09:04)
[2023-08-30] MEDS: METOCLOPRAMIDE HCL 10 MG TABLET (FP) PO SCH ×2 (09:04→21:37)
[2023-08-30] MEDS: MULTIVITAMINS (DAILY MVI) TABLET (FP) PO SCH (09:04)
[2023-08-30] MEDS: METOPROLOL TARTRATE 25 MG TABLET (FP) PO SCH ×2 (09:04→21:38)
[2023-08-30] MEDS: METHYL SALICYLATE/MENTHOL OINT 30 GM TUBE TP SCH (09:05)
[2023-08-30] MEDS: ASCORBIC ACID 500 MG TABLET (FP) PO SCH ×2 (09:05→21:37)
[2023-08-30] MEDS: COLLAGENASE CLOSTRIDIUM HIST. 30 GRAMS TUBE TP SCH (09:05)
[2023-08-30] MEDS: FLUTICASONE/SALMETEROL (WIXELA) 100 MCG/50 MCG DISKUS IH SCH ×2 (09:05→21:38)
[2023-08-30 10:05] LABS: BASO % 0.2 % (0-2.0); EOS % 1.4 % (0-4.5); HEMATOCRIT 25.5 % (32.4-45.2); HEMOGLOBIN 7.7 GM/dL (10.7-15.3); LYMPH % 19.4 % (8-40); MCH 24.6 pg (25.7-33.7); MCHC 30.2 g/dl (32.0-36.0); MEAN CELL VOLUME 81.4 fl (80-96); MEAN PLT VOLUME 7.3 fl (7.5-11.1); MONO % 5.2 % (3.8-10.2); NEUT % 73.8 % (42.8-82.8); PLATELET COUNT 402 10^3/uL (134-434); RBC 3.13 M/mm3 (3.60-5.2); RDW 22.4 % (11.6-15.6); WHITE BLOOD COUNT 12.2 K/mm3 (4.0-10.0)
[2023-08-30 10:21] LABS: POTASSIUM 4.4 mmol/L (3.5-5.1)
[2023-08-30 10:38] LABS: ALBUMIN 2.3 g/dl (3.4-5.0); BLOOD UREA NITROGEN 10.3 mg/dL (7-18); CALCIUM 7.8 mg/dL (8.5-10.1); MAGNESIUM 1.6 mg/dL (1.8-2.4)
[2023-08-30 10:41] LABS: CREATININE 0.4 mg/dL (0.55-1.3)
[2023-08-30 10:42] LABS: TOT PROT 6.4 g/dl (6.4-8.2)
[2023-08-30 10:43] LABS: BILIRUBIN,TOTAL 0.6 mg/dL (0.2-1)
[2023-08-30 14:39] LABS: PHOSPHOROUS 3.3 mg/dL (2.5-4.9)
[2023-08-30] MEDS ORDERED: MAGNESIUM SULFATE IN WATER 2 GM/50 ML IVPB IVPB ONE (16:07)
[2023-08-30] MEDS: ATORVASTATIN CA 40 MG TABLET (FP) PO SCH (21:37)
[2023-08-30] MEDS: MONTELUKAST NA 10 MG TABLET PO SCH (21:37)
[2023-08-31] MEDS: MEROPENEM 1 GM in DEXTROSE 5%-WATER 100 ML IVPB SCH ×3 (02:55→17:58)
[2023-08-31] MEDS: METOCLOPRAMIDE HCL 10 MG TABLET (FP) PO SCH ×2 (10:04→21:33)
[2023-08-31] MEDS: AMINO ACIDS/PROTEIN HYDROLYS 30 ML LIQUID.PKT PO SCH ×2 (10:04→17:01)
[2023-08-31] MEDS: FUROSEMIDE 40 MG TABLET (FP) PO SCH (10:04)
[2023-08-31] MEDS: METOPROLOL TARTRATE 25 MG TABLET (FP) PO SCH ×2 (10:04→21:33)
[2023-08-31] MEDS: APIXABAN 5 MG TABLET PO SCH ×2 (10:05→21:33)
[2023-08-31] MEDS: ASCORBIC ACID 500 MG TABLET (FP) PO SCH ×2 (10:05→21:33)
[2023-08-31] MEDS: AMOX TR/POT CLAV 875MG/125MG TABLETS (FP) PO SCH (10:25)
[2023-08-31 11:05] LABS: BASO % 0.3 % (0-2.0); EOS % 1.4 % (0-4.5); HEMATOCRIT 26.3 % (32.4-45.2); HEMOGLOBIN 7.8 GM/dL (10.7-15.3); LYMPH % 17.2 % (8-40); MCH 23.8 pg (25.7-33.7); MCHC 29.5 g/dl (32.0-36.0); MEAN CELL VOLUME 80.8 fl (80-96); MEAN PLT VOLUME 7.4 fl (7.5-11.1); MONO % 6.6 % (3.8-10.2); NEUT % 74.5 % (42.8-82.8); PLATELET COUNT 445 10^3/uL (134-434); RBC 3.26 M/mm3 (3.60-5.2); RDW 22.9 % (11.6-15.6); RETICULOCYTES 4.33 % (0.5-1.5)
[2023-08-31] MEDS: COLLAGENASE CLOSTRIDIUM HIST. 30 GRAMS TUBE TP SCH (11:05)
[2023-08-31] MEDS: METHYL SALICYLATE/MENTHOL OINT 30 GM TUBE TP SCH (11:05)
[2023-08-31] MEDS: FLUTICASONE/SALMETEROL (WIXELA) 100 MCG/50 MCG DISKUS IH SCH ×2 (11:05→21:41)
[2023-08-31 11:14] LABS: CHLORIDE 102 mmol/L (98-107); POTASSIUM 4.4 mmol/L (3.5-5.1); SODIUM 138 mmol/L (136-145)
[2023-08-31 11:18] LABS: ALBUMIN 2.5 g/dl (3.4-5.0); ANION GAP 6 mmol/L (4-13); BLOOD UREA NITROGEN 10.4 mg/dL (7-18); CO2 29 mmol/L (21-32); GLUCOSE,RANDOM 117 mg/dL (74-106)
[2023-08-31 11:19] LABS: MAGNESIUM 1.6 mg/dL (1.8-2.4)
[2023-08-31 11:21] LABS: CREATININE 0.3 mg/dL (0.55-1.3); SGOT/AST 11 U/L (15-37); SGPT/ALT 9 U/L (13-61)
[2023-08-31 11:23] LABS: BILIRUBIN,TOTAL 0.6 mg/dL (0.2-1); TOT PROT 6.7 g/dl (6.4-8.2)
[2023-08-31 11:24] LABS: ALK PHOS 74 U/L (45-117)
[2023-08-31] MEDS: MULTIVITAMINS (DAILY MVI) TABLET (FP) PO SCH (11:47)
[2023-08-31 11:56] LABS: ANISOCYTOSIS 3+; MACROCYTOSIS 0
[2023-08-31] MEDS: MAGNESIUM 1GM/D5W 100ML - 100 ML IVPB IVPB ONE ×2 (13:35→17:55)
[2023-08-31] MEDS: LIDOCAINE 4% PATCH TP SCH (16:58)
[2023-08-31] MEDS ORDERED: MAGNESIUM OXIDE 400 MG TABLET (FP) PO ONE (18:00)
[2023-08-31] MEDS: oxyCODONE HCL 5 MG TABLET PO PRN (21:30)
[2023-08-31] MEDS: MONTELUKAST NA 10 MG TABLET PO SCH (21:33)
[2023-08-31] MEDS: ATORVASTATIN CA 40 MG TABLET (FP) PO SCH (21:34)
[2023-08-31] MEDS: LIDOCAINE PATCH REMOVAL MC SCH (21:34)
[2023-09-01] MEDS: AMINO ACIDS/PROTEIN HYDROLYS 30 ML LIQUID.PKT PO SCH ×2 (09:26→17:34)
[2023-09-01] MEDS: FLUTICASONE/SALMETEROL (WIXELA) 100 MCG/50 MCG DISKUS IH SCH ×2 (09:27→22:18)
[2023-09-01] MEDS: METHYL SALICYLATE/MENTHOL OINT 30 GM TUBE TP SCH (09:27)
[2023-09-01] MEDS: METOPROLOL TARTRATE 25 MG TABLET (FP) PO SCH ×2 (09:27→22:17)
[2023-09-01] MEDS: COLLAGENASE CLOSTRIDIUM HIST. 30 GRAMS TUBE TP SCH (09:28)
[2023-09-01] MEDS: APIXABAN 5 MG TABLET PO SCH ×2 (09:28→22:15)
[2023-09-01] MEDS: METOCLOPRAMIDE HCL 10 MG TABLET (FP) PO SCH ×2 (09:28→22:18)
[2023-09-01] MEDS: MULTIVITAMINS (DAILY MVI) TABLET (FP) PO SCH (09:28)
[2023-09-01] MEDS: FUROSEMIDE 40 MG TABLET (FP) PO SCH (09:28)
[2023-09-01] MEDS: ASCORBIC ACID 500 MG TABLET (FP) PO SCH ×2 (09:28→22:15)
[2023-09-01] MEDS: oxyCODONE HCL 5 MG TABLET PO PRN (09:37)
[2023-09-01] MEDS: LIDOCAINE 4% PATCH TP SCH (09:37)
[2023-09-01 10:38] LABS: BASO % 0.3 % (0-2.0); EOS % 0.9 % (0-4.5); HEMATOCRIT 27.3 % (32.4-45.2); HEMOGLOBIN 8.2 GM/dL (10.7-15.3); LYMPH % 14.4 % (8-40); MCH 24.8 pg (25.7-33.7); MCHC 30.2 g/dl (32.0-36.0); MEAN CELL VOLUME 82.1 fl (80-96); MEAN PLT VOLUME 7.3 fl (7.5-11.1); MONO % 7.3 % (3.8-10.2); NEUT % 77.1 % (42.8-82.8); PLATELET COUNT 408 10^3/uL (134-434); RBC 3.33 M/mm3 (3.60-5.2); RDW 22.9 % (11.6-15.6); WHITE BLOOD COUNT 12.7 K/mm3 (4.0-10.0)
[2023-09-01 10:57] LABS: POTASSIUM 4.3 mmol/L (3.5-5.1)
[2023-09-01 11:02] LABS: CALCIUM 9.1 mg/dL (8.5-10.1)
[2023-09-01 11:03] LABS: ALBUMIN 2.6 g/dl (3.4-5.0); BLOOD UREA NITROGEN 13.7 mg/dL (7-18)
[2023-09-01 11:06] LABS: CREATININE 0.4 mg/dL (0.55-1.3)
[2023-09-01 11:07] LABS: TOT PROT 7.1 g/dl (6.4-8.2)
[2023-09-01 11:08] LABS: BILIRUBIN,TOTAL 0.5 mg/dL (0.2-1)
[2023-09-01] MEDS: ATORVASTATIN CA 40 MG TABLET (FP) PO SCH (22:15)
[2023-09-01] MEDS: LIDOCAINE PATCH REMOVAL MC SCH (22:17)
[2023-09-01] MEDS: MONTELUKAST NA 10 MG TABLET PO SCH (22:17)
[2023-09-02 09:08] LABS: BASO % 0.4 % (0-2.0); EOS % 1.1 % (0-4.5); HEMATOCRIT 25.3 % (32.4-45.2); HEMOGLOBIN 7.7 GM/dL (10.7-15.3); LYMPH % 15.6 % (8-40); MCH 24.7 pg (25.7-33.7); MCHC 30.4 g/dl (32.0-36.0); MEAN CELL VOLUME 81.3 fl (80-96); MEAN PLT VOLUME 7.1 fl (7.5-11.1); MONO % 9.7 % (3.8-10.2); NEUT % 73.2 % (42.8-82.8); PLATELET COUNT 432 10^3/uL (134-434); RBC 3.11 M/mm3 (3.60-5.2); RDW 23.5 % (11.6-15.6); WHITE BLOOD COUNT 11.1 K/mm3 (4.0-10.0)
[2023-09-02] MEDS: APIXABAN 5 MG TABLET PO SCH ×2 (09:20→21:40)
[2023-09-02] MEDS: METOPROLOL TARTRATE 25 MG TABLET (FP) PO SCH ×2 (09:20→21:40)
[2023-09-02] MEDS: FUROSEMIDE 40 MG TABLET (FP) PO SCH (09:20)
[2023-09-02] MEDS: LIDOCAINE 4% PATCH TP SCH (09:20)
[2023-09-02] MEDS: ASCORBIC ACID 500 MG TABLET (FP) PO SCH ×2 (09:20→21:40)
[2023-09-02] MEDS: METOCLOPRAMIDE HCL 10 MG TABLET (FP) PO SCH ×2 (09:20→21:40)
[2023-09-02] MEDS: MULTIVITAMINS (DAILY MVI) TABLET (FP) PO SCH (09:20)
[2023-09-02] MEDS: AMINO ACIDS/PROTEIN HYDROLYS 30 ML LIQUID.PKT PO SCH ×2 (09:20→16:59)
[2023-09-02] MEDS: FLUTICASONE/SALMETEROL (WIXELA) 100 MCG/50 MCG DISKUS IH SCH ×2 (09:21→21:42)
[2023-09-02] MEDS: METHYL SALICYLATE/MENTHOL OINT 30 GM TUBE TP SCH (09:21)
[2023-09-02] MEDS: COLLAGENASE CLOSTRIDIUM HIST. 30 GRAMS TUBE TP SCH (09:21)
[2023-09-02 09:59] LABS: ERYTHROCYTE SEDIMENTATION RATE 115 mm/hr (0-30)
[2023-09-02] MEDS: oxyCODONE HCL 5 MG TABLET PO PRN (16:18)
[2023-09-02] MEDS: ATORVASTATIN CA 40 MG TABLET (FP) PO SCH (21:40)
[2023-09-02] MEDS: MONTELUKAST NA 10 MG TABLET PO SCH (21:40)
[2023-09-02] MEDS: GENTAMICIN SO4 0.1% TOPICAL OINTMENT 15 GM/TUBE TUBE TP SCH (21:41)
[2023-09-02] MEDS: LIDOCAINE PATCH REMOVAL MC SCH (22:11)
[2023-09-02] MEDS ORDERED: oxyCODONE HCL 5 MG TABLET PO ONE (22:19)
[2023-09-03 08:50] LABS: BASO % 0.5 % (0-2.0); EOS % 1.8 % (0-4.5); HEMATOCRIT 24.3 % (32.4-45.2); HEMOGLOBIN 7.5 GM/dL (10.7-15.3); LYMPH % 20.9 % (8-40); MCH 25.1 pg (25.7-33.7); MCHC 30.7 g/dl (32.0-36.0); MEAN CELL VOLUME 81.7 fl (80-96); MEAN PLT VOLUME 7.5 fl (7.5-11.1); NEUT % 66.8 % (42.8-82.8); PLATELET COUNT 371 10^3/uL (134-434); RBC 2.97 M/mm3 (3.60-5.2); RDW 23.2 % (11.6-15.6); WHITE BLOOD COUNT 8.1 K/mm3 (4.0-10.0)
[2023-09-03 09:06] LABS: POTASSIUM 4.1 mmol/L (3.5-5.1)
[2023-09-03 09:09] LABS: ALBUMIN 2.4 g/dl (3.4-5.0); CALCIUM 9.1 mg/dL (8.5-10.1)
[2023-09-03 09:11] LABS: BLOOD UREA NITROGEN 11.7 mg/dL (7-18)
[2023-09-03 09:13] LABS: CREATININE 0.3 mg/dL (0.55-1.3)
[2023-09-03 09:15] LABS: BILIRUBIN,TOTAL 0.5 mg/dL (0.2-1); TOT PROT 6.8 g/dl (6.4-8.2)
[2023-09-03] MEDS: LIDOCAINE 4% PATCH TP SCH (10:02)
[2023-09-03] MEDS: AMINO ACIDS/PROTEIN HYDROLYS 30 ML LIQUID.PKT PO SCH ×2 (10:02→18:06)
[2023-09-03] MEDS: METOCLOPRAMIDE HCL 10 MG TABLET (FP) PO SCH ×2 (10:03→21:08)
[2023-09-03] MEDS: METOPROLOL TARTRATE 25 MG TABLET (FP) PO SCH ×2 (10:03→21:08)
[2023-09-03] MEDS: ASCORBIC ACID 500 MG TABLET (FP) PO SCH ×2 (10:03→21:08)
[2023-09-03] MEDS: FUROSEMIDE 40 MG TABLET (FP) PO SCH (10:03)
[2023-09-03] MEDS: MULTIVITAMINS (DAILY MVI) TABLET (FP) PO SCH (10:03)
[2023-09-03] MEDS: APIXABAN 5 MG TABLET PO SCH ×2 (10:03→21:08)
[2023-09-03 10:52] LABS: ERYTHROCYTE SEDIMENTATION RATE 110 mm/hr (0-30)
[2023-09-03] MEDS: COLLAGENASE CLOSTRIDIUM HIST. 30 GRAMS TUBE TP SCH (11:20)
[2023-09-03] MEDS: GENTAMICIN SO4 0.1% TOPICAL OINTMENT 15 GM/TUBE TUBE TP SCH ×2 (11:21→21:09)
[2023-09-03] MEDS: METHYL SALICYLATE/MENTHOL OINT 30 GM TUBE TP SCH (11:21)
[2023-09-03] MEDS: FLUTICASONE/SALMETEROL (WIXELA) 100 MCG/50 MCG DISKUS IH SCH ×2 (11:22→21:10)
[2023-09-03 15:30] LABS: MAGNESIUM 1.6 mg/dL (1.8-2.4)
[2023-09-03] MEDS: ACETAMINOPHEN 1000 MG/100 ML BAG IVPB PRN (15:45)
[2023-09-03] MEDS ORDERED: MAGNESIUM SULF 50% (8.12 MEQ/2 ML-1 GM VIAL) IVPB ONE ×2 (16:16→21:00)
[2023-09-03] MEDS ORDERED: oxyCODONE HCL 5 MG TABLET PO ONE (19:36)
[2023-09-03] MEDS: MONTELUKAST NA 10 MG TABLET PO SCH (21:08)
[2023-09-03] MEDS: ATORVASTATIN CA 40 MG TABLET (FP) PO SCH (21:08)
[2023-09-03] MEDS: LIDOCAINE PATCH REMOVAL MC SCH (21:10)
[2023-09-04 08:56] LABS: BASO % 0.5 % (0-2.0); EOS % 2.1 % (0-4.5); HEMOGLOBIN 7.7 GM/dL (10.7-15.3); LYMPH % 24.4 % (8-40); MCH 25.2 pg (25.7-33.7); MCHC 30.9 g/dl (32.0-36.0); MEAN CELL VOLUME 81.6 fl (80-96); MEAN PLT VOLUME 7.4 fl (7.5-11.1); MONO % 8.6 % (3.8-10.2); NEUT % 64.4 % (42.8-82.8); PLATELET COUNT 381 10^3/uL (134-434); RBC 3.06 M/mm3 (3.60-5.2); WHITE BLOOD COUNT 7.8 K/mm3 (4.0-10.0)
[2023-09-04 09:12] LABS: POTASSIUM 4.1 mmol/L (3.5-5.1)
[2023-09-04 09:17] LABS: ALBUMIN 2.6 g/dl (3.4-5.0); BLOOD UREA NITROGEN 12.1 mg/dL (7-18); CALCIUM 8.5 mg/dL (8.5-10.1)
[2023-09-04 09:19] LABS: CREATININE 0.4 mg/dL (0.55-1.3)
[2023-09-04 09:21] LABS: BILIRUBIN,TOTAL 0.5 mg/dL (0.2-1); TOT PROT 7.2 g/dl (6.4-8.2)
[2023-09-04] MEDS: APIXABAN 5 MG TABLET PO SCH ×2 (10:05→21:48)
[2023-09-04] MEDS: METOCLOPRAMIDE HCL 10 MG TABLET (FP) PO SCH ×2 (10:05→21:48)
[2023-09-04] MEDS: ASCORBIC ACID 500 MG TABLET (FP) PO SCH ×2 (10:05→21:48)
[2023-09-04] MEDS: MULTIVITAMINS (DAILY MVI) TABLET (FP) PO SCH (10:05)
[2023-09-04] MEDS: SIMETHICONE 80 MG TAB.CHEW (FP) PO PRN (10:06)
[2023-09-04] MEDS: AMINO ACIDS/PROTEIN HYDROLYS 30 ML LIQUID.PKT PO SCH ×2 (10:06→17:04)
[2023-09-04] MEDS: FUROSEMIDE 40 MG TABLET (FP) PO SCH (10:06)
[2023-09-04] MEDS: METOPROLOL TARTRATE 25 MG TABLET (FP) PO SCH ×2 (10:06→21:48)
[2023-09-04] MEDS: LIDOCAINE 4% PATCH TP SCH (10:06)
[2023-09-04] MEDS: COLLAGENASE CLOSTRIDIUM HIST. 30 GRAMS TUBE TP SCH (10:07)
[2023-09-04] MEDS: GENTAMICIN SO4 0.1% TOPICAL OINTMENT 15 GM/TUBE TUBE TP SCH ×2 (10:07→21:49)
[2023-09-04] MEDS: METHYL SALICYLATE/MENTHOL OINT 30 GM TUBE TP SCH (10:07)
[2023-09-04] MEDS: FLUTICASONE/SALMETEROL (WIXELA) 100 MCG/50 MCG DISKUS IH SCH ×2 (10:07→21:49)
[2023-09-04] MEDS: KETOROLAC TROMETHAMINE 15 MG/ML VIAL IVPUSH PRN (10:18)
[2023-09-04 11:13] LABS: ANISOCYTOSIS 2+; MACROCYTOSIS 0; OVALOCYTE 1+
[2023-09-04] MEDS: ATORVASTATIN CA 40 MG TABLET (FP) PO SCH (21:48)
[2023-09-04] MEDS: MONTELUKAST NA 10 MG TABLET PO SCH (21:48)
[2023-09-04] MEDS: ACETAMINOPHEN 1000 MG/100 ML BAG IVPB PRN (21:57)
[2023-09-04] MEDS: LIDOCAINE PATCH REMOVAL MC SCH (23:21)
[2023-09-05 09:15] LABS: BASO % 0.3 % (0-2.0); EOS % 2.6 % (0-4.5); HEMATOCRIT 24.9 % (32.4-45.2); HEMOGLOBIN 7.6 GM/dL (10.7-15.3); LYMPH % 25.7 % (8-40); MCH 25.2 pg (25.7-33.7); MCHC 30.7 g/dl (32.0-36.0); MEAN CELL VOLUME 82.1 fl (80-96); MEAN PLT VOLUME 7.5 fl (7.5-11.1); MONO % 7.6 % (3.8-10.2); NEUT % 63.8 % (42.8-82.8); PLATELET COUNT 393 10^3/uL (134-434); RBC 3.03 M/mm3 (3.60-5.2); RDW 22.4 % (11.6-15.6); WHITE BLOOD COUNT 7.2 K/mm3 (4.0-10.0)
[2023-09-05 09:37] LABS: POTASSIUM 4.3 mmol/L (3.5-5.1)
[2023-09-05 09:40] LABS: CALCIUM 8.5 mg/dL (8.5-10.1)
[2023-09-05 09:42] LABS: ALBUMIN 2.4 g/dl (3.4-5.0); BLOOD UREA NITROGEN 15.4 mg/dL (7-18)
[2023-09-05 09:44] LABS: CREATININE 0.4 mg/dL (0.55-1.3)
[2023-09-05 09:45] LABS: BILIRUBIN,TOTAL 0.4 mg/dL (0.2-1); TOT PROT 6.9 g/dl (6.4-8.2)
[2023-09-05] MEDS: APIXABAN 5 MG TABLET PO SCH ×2 (10:28→21:19)
[2023-09-05] MEDS: METOPROLOL TARTRATE 25 MG TABLET (FP) PO SCH ×2 (10:28→21:19)
[2023-09-05] MEDS: ASCORBIC ACID 500 MG TABLET (FP) PO SCH ×2 (10:28→21:19)
[2023-09-05] MEDS: METOCLOPRAMIDE HCL 10 MG TABLET (FP) PO SCH ×2 (10:29→21:19)
[2023-09-05] MEDS: FUROSEMIDE 40 MG TABLET (FP) PO SCH (10:29)
[2023-09-05] MEDS: AMINO ACIDS/PROTEIN HYDROLYS 30 ML LIQUID.PKT PO SCH ×2 (10:29→17:28)
[2023-09-05] MEDS: LIDOCAINE 4% PATCH TP SCH (10:29)
[2023-09-05] MEDS: MULTIVITAMINS (DAILY MVI) TABLET (FP) PO SCH (10:29)
[2023-09-05] MEDS: FLUTICASONE/SALMETEROL (WIXELA) 100 MCG/50 MCG DISKUS IH SCH ×2 (13:11→21:27)
[2023-09-05] MEDS: METHYL SALICYLATE/MENTHOL OINT 30 GM TUBE TP SCH (13:13)
[2023-09-05] MEDS: COLLAGENASE CLOSTRIDIUM HIST. 30 GRAMS TUBE TP SCH (13:15)
[2023-09-05] MEDS: GENTAMICIN SO4 0.1% TOPICAL OINTMENT 15 GM/TUBE TUBE TP SCH ×2 (13:19→21:27)
[2023-09-05] MEDS: KETOROLAC TROMETHAMINE 15 MG/ML VIAL IVPUSH PRN (19:59)
[2023-09-05] MEDS: MONTELUKAST NA 10 MG TABLET PO SCH (21:19)
[2023-09-05] MEDS: SIMETHICONE 80 MG TAB.CHEW (FP) PO PRN (21:19)
[2023-09-05] MEDS: ATORVASTATIN CA 40 MG TABLET (FP) PO SCH (21:19)
[2023-09-05] MEDS: LIDOCAINE PATCH REMOVAL MC SCH (22:19)
[2023-09-06] MEDS: FUROSEMIDE 40 MG TABLET (FP) PO SCH (09:06)
[2023-09-06] MEDS: APIXABAN 5 MG TABLET PO SCH ×2 (09:06→22:33)
[2023-09-06] MEDS: AMINO ACIDS/PROTEIN HYDROLYS 30 ML LIQUID.PKT PO SCH ×2 (09:06→17:14)
[2023-09-06] MEDS: METOCLOPRAMIDE HCL 10 MG TABLET (FP) PO SCH ×2 (09:06→22:33)
[2023-09-06] MEDS: MULTIVITAMINS (DAILY MVI) TABLET (FP) PO SCH (09:06)
[2023-09-06] MEDS: ASCORBIC ACID 500 MG TABLET (FP) PO SCH ×2 (09:06→22:33)
[2023-09-06] MEDS: METOPROLOL TARTRATE 25 MG TABLET (FP) PO SCH ×2 (09:06→22:33)
[2023-09-06] MEDS: FLUTICASONE/SALMETEROL (WIXELA) 100 MCG/50 MCG DISKUS IH SCH (09:07)
[2023-09-06] MEDS: METHYL SALICYLATE/MENTHOL OINT 30 GM TUBE TP SCH (09:08)
[2023-09-06] MEDS: LIDOCAINE 4% PATCH TP SCH (09:08)
[2023-09-06] MEDS: GENTAMICIN SO4 0.1% TOPICAL OINTMENT 15 GM/TUBE TUBE TP SCH (09:10)
[2023-09-06] MEDS: COLLAGENASE CLOSTRIDIUM HIST. 30 GRAMS TUBE TP SCH (09:10)
[2023-09-06 09:54] LABS: BASO % 0.4 % (0-2.0); EOS % 2.4 % (0-4.5); HEMATOCRIT 24.5 % (32.4-45.2); HEMOGLOBIN 7.5 GM/dL (10.7-15.3); LYMPH % 29.8 % (8-40); MCH 24.8 pg (25.7-33.7); MCHC 30.4 g/dl (32.0-36.0); MEAN CELL VOLUME 81.3 fl (80-96); MEAN PLT VOLUME 7.5 fl (7.5-11.1); MONO % 6.5 % (3.8-10.2); NEUT % 60.9 % (42.8-82.8); PLATELET COUNT 382 10^3/uL (134-434); RBC 3.02 M/mm3 (3.60-5.2); RDW 22.5 % (11.6-15.6); WHITE BLOOD COUNT 7.2 K/mm3 (4.0-10.0)
[2023-09-06 10:17] LABS: POTASSIUM 4.3 mmol/L (3.5-5.1)
[2023-09-06 10:20] LABS: ALBUMIN 2.5 g/dl (3.4-5.0); CALCIUM 8.6 mg/dL (8.5-10.1)
[2023-09-06 10:24] LABS: CREATININE 0.5 mg/dL (0.55-1.3)
[2023-09-06 10:25] LABS: BILIRUBIN,TOTAL 0.4 mg/dL (0.2-1); TOT PROT 6.7 g/dl (6.4-8.2)
[2023-09-06] MEDS: ACETAMINOPHEN 1000 MG/100 ML BAG IVPB PRN (10:30)
[2023-09-06] MEDS: KETOROLAC TROMETHAMINE 15 MG/ML VIAL IVPUSH PRN (14:10)
[2023-09-06 15:32] VITALS: RESP 18
[2023-09-06] MEDS: ATORVASTATIN CA 40 MG TABLET (FP) PO SCH (22:33)
[2023-09-06] MEDS: MONTELUKAST NA 10 MG TABLET PO SCH (22:33)
[2023-09-06] MEDS: LIDOCAINE PATCH REMOVAL MC SCH (22:33)
[2023-09-07] MEDS: GENTAMICIN SO4 0.1% TOPICAL OINTMENT 15 GM/TUBE TUBE TP SCH ×3 (00:08→21:50)
[2023-09-07] MEDS ORDERED: LOPERAMIDE HCL 2 MG CAPSULE PO PRN (00:08)
[2023-09-07] MEDS ORDERED: SIMETHICONE 80 MG TAB.CHEW (FP) PO PRN (00:08)
[2023-09-07] MEDS: FLUTICASONE/SALMETEROL (WIXELA) 100 MCG/50 MCG DISKUS IH SCH ×3 (00:08→21:50)
[2023-09-07] MEDS: ACETAMINOPHEN 1000 MG/100 ML BAG IVPB PRN ×2 (07:11→23:44)
[2023-09-07] MEDS: AMINO ACIDS/PROTEIN HYDROLYS 30 ML LIQUID.PKT PO SCH ×2 (08:48→18:18)
[2023-09-07] MEDS: LIDOCAINE 4% PATCH TP SCH (09:46)
[2023-09-07] MEDS: MULTIVITAMINS (DAILY MVI) TABLET (FP) PO SCH (09:46)
[2023-09-07] MEDS: APIXABAN 5 MG TABLET PO SCH ×2 (09:46→21:44)
[2023-09-07] MEDS: FUROSEMIDE 40 MG TABLET (FP) PO SCH (09:46)
[2023-09-07] MEDS: ASCORBIC ACID 500 MG TABLET (FP) PO SCH ×2 (09:46→21:44)
[2023-09-07] MEDS: METOCLOPRAMIDE HCL 10 MG TABLET (FP) PO SCH ×2 (09:47→21:45)
[2023-09-07] MEDS: METOPROLOL TARTRATE 25 MG TABLET (FP) PO SCH ×2 (09:47→21:59)
[2023-09-07] MEDS: METHYL SALICYLATE/MENTHOL OINT 30 GM TUBE TP SCH (09:59)
[2023-09-07] MEDS: COLLAGENASE CLOSTRIDIUM HIST. 30 GRAMS TUBE TP SCH (15:16)
[2023-09-07] MEDS: ATORVASTATIN CA 40 MG TABLET (FP) PO SCH (21:44)
[2023-09-07] MEDS: MONTELUKAST NA 10 MG TABLET PO SCH (21:44)
[2023-09-07] MEDS: LIDOCAINE PATCH REMOVAL MC SCH (21:46)
[2023-09-08] MEDS: FLUTICASONE/SALMETEROL (WIXELA) 100 MCG/50 MCG DISKUS IH SCH ×2 (09:56→22:00)
[2023-09-08] MEDS: METHYL SALICYLATE/MENTHOL OINT 30 GM TUBE TP SCH (09:56)
[2023-09-08] MEDS: LIDOCAINE 4% PATCH TP SCH (09:56)
[2023-09-08] MEDS: AMINO ACIDS/PROTEIN HYDROLYS 30 ML LIQUID.PKT PO SCH ×2 (09:56→17:29)
[2023-09-08] MEDS: ASCORBIC ACID 500 MG TABLET (FP) PO SCH ×2 (09:57→22:00)
[2023-09-08] MEDS: FUROSEMIDE 40 MG TABLET (FP) PO SCH (09:57)
[2023-09-08] MEDS: METOCLOPRAMIDE HCL 10 MG TABLET (FP) PO SCH ×2 (09:57→22:00)
[2023-09-08] MEDS: MULTIVITAMINS (DAILY MVI) TABLET (FP) PO SCH (09:57)
[2023-09-08] MEDS: APIXABAN 5 MG TABLET PO SCH ×2 (09:57→22:00)
[2023-09-08] MEDS: GENTAMICIN SO4 0.1% TOPICAL OINTMENT 15 GM/TUBE TUBE TP SCH ×2 (09:58→22:00)
[2023-09-08] MEDS: METOPROLOL TARTRATE 25 MG TABLET (FP) PO SCH ×2 (09:58→22:00)
[2023-09-08] MEDS: COLLAGENASE CLOSTRIDIUM HIST. 30 GRAMS TUBE TP SCH (10:00)
[2023-09-08] MEDS: MONTELUKAST NA 10 MG TABLET PO SCH (21:59)
[2023-09-08] MEDS: ATORVASTATIN CA 40 MG TABLET (FP) PO SCH (22:00)
[2023-09-08] MEDS: LIDOCAINE PATCH REMOVAL MC SCH (22:01)
[2023-09-08] MEDS: ACETAMINOPHEN 1000 MG/100 ML BAG IVPB PRN (22:40)
[2023-09-09 09:56] LABS: BLOOD UREA NITROGEN 15.5 mg/dL (7-18)
[2023-09-09] MEDS: METOCLOPRAMIDE HCL 10 MG TABLET (FP) PO SCH (09:56)
[2023-09-09] MEDS: MULTIVITAMINS (DAILY MVI) TABLET (FP) PO SCH (09:57)
[2023-09-09] MEDS: ASCORBIC ACID 500 MG TABLET (FP) PO SCH (09:57)
[2023-09-09] MEDS: FUROSEMIDE 40 MG TABLET (FP) PO SCH (09:57)
[2023-09-09 09:58] LABS: CALCIUM 9.3 mg/dL (8.5-10.1)
[2023-09-09] MEDS: APIXABAN 5 MG TABLET PO SCH (09:58)
[2023-09-09] MEDS: LIDOCAINE 4% PATCH TP SCH (09:58)
[2023-09-09 09:59] LABS: MAGNESIUM 1.6 mg/dL (1.8-2.4); PHOSPHOROUS 4.2 mg/dL (2.5-4.9)
[2023-09-09] MEDS: METOPROLOL TARTRATE 25 MG TABLET (FP) PO SCH (10:00)
[2023-09-09 10:01] LABS: CREATININE 0.4 mg/dL (0.55-1.3)
[2023-09-09] MEDS: FLUTICASONE/SALMETEROL (WIXELA) 100 MCG/50 MCG DISKUS IH SCH (10:01)
[2023-09-09] MEDS: METHYL SALICYLATE/MENTHOL OINT 30 GM TUBE TP SCH (10:01)
[2023-09-09] MEDS: GENTAMICIN SO4 0.1% TOPICAL OINTMENT 15 GM/TUBE TUBE TP SCH (10:02)
[2023-09-09] MEDS: COLLAGENASE CLOSTRIDIUM HIST. 30 GRAMS TUBE TP SCH (10:02)
[2023-09-09] MEDS: AMINO ACIDS/PROTEIN HYDROLYS 30 ML LIQUID.PKT PO SCH ×2 (10:04→17:35)
[2023-09-09 14:01] VITALS: BP 148/67; PULSE 81; TEMP 98.7
== END 2023-09-09 17:42 | DRG 871 ==
LOC: JER 19:30 → JERBED 08-21 04:48 → J4S 08-22 04:15 → J8W 09-06 18:49
PROVIDERS: ADMIT Internal Medicine; ATTEND Internal Medicine
DX: A41.9 Sepsis, unspecified organism (principal); I50.33 Acute on chronic diastolic (congestive) heart failure; J96.00 Acute respiratory failure, unspecified whether with hypoxia or hypercapnia; L97.429 Non-pressure chronic ulcer of left heel and midfoot with unspecified severity; I50.30 Unspecified diastolic (congestive) heart failure; L02.416 Cutaneous abscess of left lower limb; I48.20 Chronic atrial fibrillation, unspecified; M86.60 Other chronic osteomyelitis, unspecified site; I24.89 Other forms of acute ischemic heart disease; L02.612 Cutaneous abscess of left foot; L03.90 Cellulitis, unspecified; E87.20 Acidosis, unspecified; I11.0 Hypertensive heart disease with heart failure; E11.9 Type 2 diabetes mellitus without complications; R19.7 Diarrhea, unspecified; E66.9 Obesity, unspecified; Z68.36 Body mass index [BMI] 36.0-36.9, adult; I35.0 Nonrheumatic aortic (valve) stenosis; D75.839 Thrombocytosis, unspecified; E78.5 Hyperlipidemia, unspecified; E87.6 Hypokalemia; E83.42 Hypomagnesemia
CPT/HCPCS: 0241U-QW; 36415; 71045-TC-FY; 73610-TC-LT-FY; 73630-TC-LT; 74018-TC-FY; 74019-TC-FY; 74177-TC; 80048; 80053; 81003; 82272; 82308; 82550; 82728; 83010; 83036; 83540; 83550; 83605; 83735; 84100; 84484; 85025; 85027; 85045; 85610; 85651; 85730; 86140; 87040; 87070; 87086; 87186; 87205; 87635; 93005; 93010; 94640; 97161-GP; 99285-25; G0480

== ENCOUNTER 2023-10-30 11:11 | Inpatient (IN) | payer OTHER ==
[2023-10-30 13:33] LABS: EOS % 1.1 % (0-4.5); HEMATOCRIT 16.3 % (32.4-45.2); INR 2.15 (0.83-1.09); LYMPH % 25.8 % (8-40); MCH 23.6 pg (25.7-33.7); MEAN CELL VOLUME 76.2 fl (80-96); MEAN PLT VOLUME 7.2 fl (7.5-11.1); MONO % 9.3 % (3.8-10.2); NEUT % 63.6 % (42.8-82.8); PLATELET COUNT 360 10^3/uL (134-434); PROTHROMBIN TIME (PATIENT) 24.8 SEC (9.7-13.0); RBC 2.14 M/mm3 (3.60-5.2); RDW 23.1 % (11.6-15.6); WHITE BLOOD COUNT 9.7 K/mm3 (4.0-10.0)
[2023-10-30 13:34] LABS: BASO % 0.2 % (0-2.0)
[2023-10-30 13:42] LABS: HEMOGLOBIN 5.1 GM/dL (10.7-15.3)
[2023-10-30 13:53] LABS: CHLORIDE 101 mmol/L (98-107); SODIUM 137 mmol/L (136-145)
[2023-10-30 13:56] LABS: GLUCOSE,RANDOM 98 mg/dL (74-106)
[2023-10-30 13:58] LABS: ALBUMIN 3.1 g/dl (3.4-5.0); ANISOCYTOSIS 2+; BLOOD UREA NITROGEN 31.9 mg/dL (7-18); CALCIUM 8.8 mg/dL (8.5-10.1); CO2 28 mmol/L (21-32); MACROCYTOSIS 0
[2023-10-30 14:00] LABS: CREATININE 0.6 mg/dL (0.55-1.3); SGOT/AST 7 U/L (15-37); SGPT/ALT 6 U/L (13-61)
[2023-10-30 14:03] LABS: ALK PHOS 78 U/L (45-117); BILIRUBIN,TOTAL 0.4 mg/dL (0.2-1)
[2023-10-30 14:04] LABS: ANION GAP 8 mmol/L (4-13); POTASSIUM 2.7 mmol/L (3.5-5.1)
[2023-10-30] MEDS ORDERED: POTASSIUM CHLORIDE ORAL LIQUID 20 MEQ/15 ML ONE (15:32)
[2023-10-30] MEDS: POTASSIUM CHLORIDE ORAL LIQUID 20 MEQ/15 ML PO ONE (15:59)
[2023-10-30] MEDS ORDERED: ACETAMINOPHEN INJECTION 100 ML IVPB ONE (16:16)
[2023-10-30] MEDS: ACETAMINOPHEN 1000 MG/100 ML BAG IVPB ONE (16:18)
[2023-10-30 20:03] LABS: EPI CELLS 22 /uL (0-25.1); HYALINE CASTS 1 /uL (0-3.1); PH,URINE 5.5 (5.0-8.0); URINE APPEARANCE CLEAR; URINE BACTERIA >9,000 /uL (0-1359); URINE BILIRUBIN NEGATIVE (NEGATIVE); URINE COLOR YELLOW; URINE GLUCOSE (UA) NEGATIVE (NEGATIVE); URINE KETONE NEGATIVE (NEGATIVE); URINE LEUK ESTERASE 1+ (NEGATIVE); URINE NITRITE NEGATIVE (NEGATIVE); URINE PROTEIN NEGATIVE (NEGATIVE); URINE RBC 49 /uL (0-23.9); URINE UROBILINOGEN 0.2 mg/dL (0.2-1.0); URINE WBC 10 /uL (0-25.8)
[2023-10-30] MEDS ORDERED: SIMETHICONE 80 MG TAB.CHEW (FP) PO PRN (20:38)
[2023-10-30] MEDS ORDERED: LOPERAMIDE HCL 2 MG CAPSULE PO PRN (20:38)
[2023-10-30] MEDS ORDERED: PANTOPRAZOLE SODIUM 40 MG VIAL ONE (20:41)
[2023-10-30] MEDS ORDERED: FUROSEMIDE 40 MG/4 ML INJECTABLE VIAL ONE (20:41)
[2023-10-30] MEDS ORDERED: FUROSEMIDE 40 MG TABLET (FP) ONE (20:42)
[2023-10-30] MEDS ORDERED: ALBUTEROL SO4 0.083% IH SOL 2.5 MG/3 ML VIAL.NEB. NEB SCH (20:45)
[2023-10-30] MEDS: FUROSEMIDE 40 MG TABLET (FP) PO SCH (20:50)
[2023-10-30] MEDS: PANTOPRAZOLE SODIUM 40 MG VIAL IVPUSH ONE (20:50)
[2023-10-30] MEDS ORDERED: ACETAMINOPHEN 325 MG TABLET (FP) PO PRN (20:52)
[2023-10-30] MEDS ORDERED: METOPROLOL TARTRATE 25 MG TABLET (FP) ONE (22:08)
[2023-10-30] MEDS ORDERED: FAMOTIDINE 20 MG TABLET ONE (22:08)
[2023-10-30] MEDS ORDERED: METOCLOPRAMIDE HCL 10 MG TABLET (FP) PO ONE (22:08)
[2023-10-30] MEDS ORDERED: LIDOCAINE 4% PATCH TP ONE (22:08)
[2023-10-30] MEDS ORDERED: ATORVASTATIN CA 40 MG TABLET (FP) ONE (22:08)
[2023-10-30] MEDS ORDERED: MONTELUKAST NA 10 MG TABLET ONE (22:08)
[2023-10-30] MEDS ORDERED: ALBUTEROL SO4 0.083% IH SOL 2.5 MG/3 ML VIAL.NEB. NEB PRN (22:15)
[2023-10-30] MEDS: FAMOTIDINE 20 MG TABLET PO SCH (22:22)
[2023-10-30] MEDS: MONTELUKAST NA 10 MG TABLET PO SCH (22:22)
[2023-10-30] MEDS: LIDOCAINE 4% PATCH TP SCH (22:22)
[2023-10-30] MEDS: METOPROLOL TARTRATE 25 MG TABLET (FP) PO SCH (22:22)
[2023-10-30] MEDS: ATORVASTATIN CA 40 MG TABLET (FP) PO SCH (22:22)
[2023-10-30] MEDS: METOCLOPRAMIDE HCL 10 MG TABLET (FP) PO SCH (22:22)
[2023-10-30] MEDS: BUDESONIDE/FORMOTEROL FUMARATE 160-4.5 MCG (10.3 GM INHALER) IH SCH (23:24)
[2023-10-31] MEDS: INSULIN ASPART SLIDING SCALE (NOVOLOG) 1 VIAL SQ SCH (00:01)
[2023-10-31 06:23] VITALS: BMI 36.7
[2023-10-31] MEDS: ASCORBIC ACID 500 MG TABLET (FP) PO SCH (09:57)
[2023-10-31] MEDS: ZINC SULFATE 220 MG CAPSULE (FP) PO SCH (09:57)
[2023-10-31 09:59] LABS: WHITE BLOOD COUNT 6.8 K/mm3 (4.0-10.0)
[2023-10-31] MEDS ORDERED: COLLAGENASE CLOSTRIDIUM HIST. 30 GRAMS TUBE TP SCH (10:00)
[2023-10-31 10:03] LABS: HEMATOCRIT 23.5 % (32.4-45.2); HEMOGLOBIN 7.7 GM/dL (10.7-15.3); MCH 25.8 pg (25.7-33.7); MCHC 32.6 g/dl (32.0-36.0); MEAN CELL VOLUME 79.1 fl (80-96); MEAN PLT VOLUME 7.7 fl (7.5-11.1); PLATELET COUNT 306 10^3/uL (134-434); RBC 2.97 M/mm3 (3.60-5.2); RDW 19.7 % (11.6-15.6); RETICULOCYTES 1.89 % (0.5-1.5)
[2023-10-31] MEDS: LIDOCAINE PATCH REMOVAL MC SCH (10:06)
[2023-10-31 10:53] LABS: RETICULOCYTES 2.13 % (0.5-1.5)
[2023-10-31 10:58] LABS: IRON SERUM 9 ug/dL (50-175); TOTAL IRON BINDING CAPACITY 340 ug/dL (250-450)
[2023-10-31] MEDS: PANTOPRAZOLE SODIUM 40 MG VIAL IVPUSH SCH (11:20)
[2023-10-31 11:52] VITALS: RESP 18
[2023-10-31 12:26] LABS: CHLORIDE 99 mmol/L (98-107); SODIUM 136 mmol/L (136-145)
[2023-10-31 12:29] LABS: ALBUMIN 3.2 g/dl (3.4-5.0); BLOOD UREA NITROGEN 25.4 mg/dL (7-18); CALCIUM 8.7 mg/dL (8.5-10.1); CO2 30 mmol/L (21-32); GLUCOSE,RANDOM 98 mg/dL (74-106); MAGNESIUM 1.7 mg/dL (1.8-2.4)
[2023-10-31 12:32] LABS: CREATININE 0.5 mg/dL (0.55-1.3); SGOT/AST 4 U/L (15-37); SGPT/ALT 7 U/L (13-61)
[2023-10-31] MEDS: FOLIC ACID 1 MG TABLET (FP) PO SCH (12:32)
[2023-10-31] MEDS: FERROUS SO4 325 MG TABLET (FP) PO SCH (12:32)
[2023-10-31 12:33] LABS: BILIRUBIN,TOTAL 1.8 mg/dL (0.2-1); TOT PROT 7.1 g/dl (6.4-8.2)
[2023-10-31 12:35] LABS: ALK PHOS 87 U/L (45-117)
[2023-10-31 12:37] LABS: ANION GAP 7 mmol/L (4-13); POTASSIUM 2.7 mmol/L (3.5-5.1)
[2023-10-31] MEDS: POTASSIUM CHLORIDE ORAL LIQUID 20 MEQ/15 ML PO ONE ×2 (14:30→22:06)
[2023-10-31] MEDS: KCL 10 MEQ IVPB 10 MEQ/100 ML INFUS.BAG IVPB SCH ×3 (15:40→22:52)
[2023-10-31] MEDS: MAGNESIUM SULF 50% (8.12 MEQ/2 ML-1 GM VIAL) IVPB ONE (16:37)
[2023-10-31 20:35] LABS: HEMATOCRIT 26.3 % (32.4-45.2); HEMOGLOBIN 8.5 GM/dL (10.7-15.3); MCH 25.7 pg (25.7-33.7); MCHC 32.3 g/dl (32.0-36.0); MEAN CELL VOLUME 79.6 fl (80-96); MEAN PLT VOLUME 7.3 fl (7.5-11.1); PLATELET COUNT 319 10^3/uL (134-434); RBC 3.31 M/mm3 (3.60-5.2); RDW 18.6 % (11.6-15.6); WHITE BLOOD COUNT 9.9 K/mm3 (4.0-10.0)
[2023-10-31 21:06] LABS: CHLORIDE 103 mmol/L (98-107); SODIUM 140 mmol/L (136-145)
[2023-10-31 21:07] LABS: CALCIUM 8.5 mg/dL (8.5-10.1)
[2023-10-31 21:08] LABS: BLOOD UREA NITROGEN 23.6 mg/dL (7-18); CO2 26 mmol/L (21-32); GLUCOSE,RANDOM 105 mg/dL (74-106)
[2023-10-31 21:11] LABS: CREATININE 0.5 mg/dL (0.55-1.3)
[2023-10-31 21:12] LABS: ANION GAP 10 mmol/L (4-13); POTASSIUM 2.9 mmol/L (3.5-5.1)
[2023-11-01 09:31] LABS: HEMATOCRIT 25.6 % (32.4-45.2); HEMOGLOBIN 8.5 GM/dL (10.7-15.3); MCH 26.6 pg (25.7-33.7); MCHC 33.3 g/dl (32.0-36.0); MEAN CELL VOLUME 79.8 fl (80-96); MEAN PLT VOLUME 7.5 fl (7.5-11.1); PLATELET COUNT 293 10^3/uL (134-434); RBC 3.21 M/mm3 (3.60-5.2); RDW 18.8 % (11.6-15.6); WHITE BLOOD COUNT 7.7 K/mm3 (4.0-10.0)
[2023-11-01 09:48] LABS: POTASSIUM 3.6 mmol/L (3.5-5.1)
[2023-11-01 10:07] LABS: BLOOD UREA NITROGEN 18.4 mg/dL (7-18)
[2023-11-01 10:09] LABS: CREATININE 0.5 mg/dL (0.55-1.3); MAGNESIUM 2.1 mg/dL (1.8-2.4); PHOSPHOROUS 2.4 mg/dL (2.5-4.9)
[2023-11-01 10:10] LABS: BILIRUBIN,TOTAL 1.2 mg/dL (0.2-1)
[2023-11-01 10:12] LABS: TOT PROT 7.1 g/dl (6.4-8.2)
[2023-11-01 10:16] LABS: CALCIUM 8.8 mg/dL (8.5-10.1)
[2023-11-01] MEDS: NAPH,MB-DB/K PH,MBDB POWDER PACKET PO ONE (16:13)
[2023-11-01] MEDS: POTASSIUM CHLORIDE ORAL LIQUID 20 MEQ/15 ML PO ONE (16:13)
[2023-11-01 20:10] VITALS: BP 142/61; PULSE 79; TEMP 98.6
== END 2023-11-01 20:30 | disposition short-term general hospital (02) | DRG 812 ==
LOC: JER 11:11 → INTOOBSV 15:46 → JERBED 15:46 → UNDOADMOB 15:46 → JERBED 18:00 → J6S 10-31 05:58 → INTOOBSV 10-31 10:13 → OBSVTOIN 10-31 10:13
PROVIDERS: ADMIT Internal Medicine; ATTEND Internal Medicine
PROC: 30233N1 Transfusion of Nonautologous Red Blood Cells into Peripheral Vein, Percutaneous Approach (ICD-10-PCS; principal; 2023-10-30)
DX: D50.9 Iron deficiency anemia, unspecified (principal); L97.429 Non-pressure chronic ulcer of left heel and midfoot with unspecified severity; I48.20 Chronic atrial fibrillation, unspecified; I50.32 Chronic diastolic (congestive) heart failure; J44.9 Chronic obstructive pulmonary disease, unspecified; I11.0 Hypertensive heart disease with heart failure; E78.5 Hyperlipidemia, unspecified; E11.9 Type 2 diabetes mellitus without complications; E66.9 Obesity, unspecified; Z68.36 Body mass index [BMI] 36.0-36.9, adult; Z86.718 Personal history of other venous thrombosis and embolism; E87.6 Hypokalemia; Z79.01 Long term (current) use of anticoagulants; I35.0 Nonrheumatic aortic (valve) stenosis; E11.621 Type 2 diabetes mellitus with foot ulcer; E83.42 Hypomagnesemia
CPT/HCPCS: 36415; 36430; 71045-TC-FY; 80048; 80053; 81003; 82272; 82728; 82962; 83540; 83550; 83735; 84100; 85025; 85027; 85045; 85610; 86850; 86900; 86901; 86922; 93005; 93010; 99285-25; G0378; J0131; P9038; P9058

== ENCOUNTER 2024-09-03 16:08 | Inpatient (IN) | payer OTHER ==
[2024-09-03 18:15] LABS: BASO % 0.4 % (0-2.0); EOS % 1.5 % (0-4.5); HEMATOCRIT 34.3 % (32.4-45.2); LYMPH % 17.9 % (8-40); MCH 29.8 pg (25.7-33.7); MCHC 31.9 g/dl (32.0-36.0); MEAN CELL VOLUME 93.4 fl (80-96); MEAN PLT VOLUME 8.1 fl (7.5-11.1); MONO % 8.4 % (3.8-10.2); NEUT % 71.8 % (42.8-82.8); PLATELET COUNT 324 10^3/uL (134-434); RBC 3.68 M/mm3 (3.60-5.2); RDW 14.4 % (11.6-15.6); WHITE BLOOD COUNT 11.8 K/mm3 (4.0-10.0)
[2024-09-03 18:26] LABS: INR 1.62 (0.83-1.09); PROTHROMBIN TIME (PATIENT) 18.1 SEC (9.7-13.0)
[2024-09-03 18:29] LABS: ACTIVATED PTT 37.6 SECONDS (25.2-36.5)
[2024-09-03 18:39] LABS: POTASSIUM 3.8 mmol/L (3.5-5.1)
[2024-09-03 18:41] LABS: ALBUMIN 3.6 g/dl (3.4-5.0); BLOOD UREA NITROGEN 23.2 mg/dL (7-18); CALCIUM 9.7 mg/dL (8.5-10.1); MAGNESIUM 1.7 mg/dL (1.8-2.4)
[2024-09-03 18:45] LABS: CREATININE 0.9 mg/dL (0.55-1.3)
[2024-09-03 18:46] LABS: BILIRUBIN,TOTAL 0.4 mg/dL (0.2-1); TOT PROT 7.7 g/dl (6.4-8.2)
[2024-09-03] MEDS ORDERED: FUROSEMIDE 40 MG/4 ML INJECTABLE VIAL ONE (18:50)
[2024-09-03] MEDS: FUROSEMIDE 40 MG/4 ML INJECTABLE VIAL IVPUSH ONE (18:55)
[2024-09-03 19:20] LABS: EPI CELLS 27 /uL (0-25.1); HYALINE CASTS 1 /uL (0-3.1); PH,URINE 6.5 (5.0-8.0); URINE APPEARANCE CLOUDY; URINE BACTERIA >9,000 /uL (0-1359); URINE BILIRUBIN NEGATIVE (NEGATIVE); URINE COLOR YELLOW; URINE GLUCOSE (UA) NEGATIVE (NEGATIVE); URINE KETONE TRACE (NEGATIVE); URINE LEUK ESTERASE 1+ (NEGATIVE); URINE NITRITE POSITIVE (NEGATIVE); URINE PROTEIN TRACE (NEGATIVE); URINE RBC 32 /uL (0-23.9); URINE WBC 78 /uL (0-25.8)
[2024-09-03 19:35] LABS: HIV INTERPRETATION NEGATIVE (NEGATIVE)
[2024-09-03] MEDS ORDERED: MAGNESIUM OXIDE 400 MG TABLET (FP) ONE (21:35)
[2024-09-03] MEDS ORDERED: PIPERACILLIN/TAZOB 4.5 GM 4.5 GM/100 ML BAG IVPB ONE (21:35)
[2024-09-03] MEDS: PIPERACILLIN/TAZOB 4.5 GM 4.5 GM in DEXTROSE 5%-WATER 100 ML IVPB ONE (21:44)
[2024-09-03] MEDS: MAGNESIUM OXIDE 400 MG TABLET (FP) PO ONE (21:44)
[2024-09-04 05:26] LABS: ERYTHROCYTE SEDIMENTATION RATE 67 mm/hr (0-30)
[2024-09-04] MEDS ORDERED: FUROSEMIDE 40 MG/4 ML INJECTABLE VIAL ONE (06:28)
[2024-09-04] MEDS: FUROSEMIDE 40 MG/4 ML INJECTABLE VIAL IVPUSH SCH (06:41)
[2024-09-04] MEDS ORDERED: ERTAPENEM SODIUM 1 GM VIAL ONE (10:45)
[2024-09-04] MEDS ORDERED: APIXABAN 5 MG TABLET ONE (10:45)
[2024-09-04] MEDS ORDERED: PANTOPRAZOLE SODIUM 40 MG VIAL ONE (10:46)
[2024-09-04] MEDS: PANTOPRAZOLE SODIUM 40 MG VIAL IVPUSH SCH (11:27)
[2024-09-04] MEDS: APIXABAN 5 MG TABLET PO SCH (11:27)
[2024-09-04] MEDS: ERTAPENEM SODIUM 1 GM in SODIUM CHLORIDE 50 ML IVPB SCH (12:08)
[2024-09-04] MEDS: ACETAMINOPHEN 1000 MG/100 ML BAG IVPB PRN (15:34)
[2024-09-04] MEDS: ATORVASTATIN CA 10 MG TABLET (FP) PO SCH (22:03)
[2024-09-04] MEDS: POLYETHYLENE GLYCOL (HEALTHYLAX) 3350 17 GM PACKET PO SCH (22:04)
[2024-09-04] MEDS: NYSTATIN 100,000 UNIT/GM TOPICAL CREAM 15 GM TUBE TP SCH (22:58)
[2024-09-05 08:47] LABS: HEMATOCRIT 30.6 % (32.4-45.2); HEMOGLOBIN 9.7 GM/dL (10.7-15.3); MCH 29.6 pg (25.7-33.7); MCHC 31.6 g/dl (32.0-36.0); MEAN CELL VOLUME 93.6 fl (80-96); MEAN PLT VOLUME 8.3 fl (7.5-11.1); PLATELET COUNT 259 10^3/uL (134-434); RBC 3.27 M/mm3 (3.60-5.2); RDW 13.9 % (11.6-15.6); WHITE BLOOD COUNT 8.5 K/mm3 (4.0-10.0)
[2024-09-05 09:05] LABS: POTASSIUM 3.5 mmol/L (3.5-5.1)
[2024-09-05 09:23] LABS: BLOOD UREA NITROGEN 22.2 mg/dL (7-18); CALCIUM 8.6 mg/dL (8.5-10.1); MAGNESIUM 1.5 mg/dL (1.8-2.4)
[2024-09-05 09:26] LABS: CREATININE 0.6 mg/dL (0.55-1.3); PHOSPHOROUS 3.6 mg/dL (2.5-4.9)
[2024-09-05 09:27] LABS: TOT PROT 6.4 g/dl (6.4-8.2)
[2024-09-05 09:29] LABS: BILIRUBIN,TOTAL 0.5 mg/dL (0.2-1)
[2024-09-05] MEDS: CEFTRIAXONE 1 G/50 ML PREMIX 50 ML IVPB SCH (09:51)
[2024-09-05] MEDS: MAGNESIUM SULF 50% (8.12 MEQ/2 ML-1 GM VIAL) IVPB ONE (12:40)
[2024-09-05 15:22] VITALS: BMI 43.9
[2024-09-05] MEDS: ACETAMINOPHEN 1000 MG/100 ML BAG IVPB ONE (23:29)
[2024-09-05] MEDS: MELATONIN 5 MG TABLETS PO PRN (23:41)
[2024-09-06 07:46] LABS: BASO % 0.4 % (0-2.0); EOS % 2.6 % (0-4.5); HEMOGLOBIN 10.1 GM/dL (10.7-15.3); LYMPH % 24.9 % (8-40); MCH 29.9 pg (25.7-33.7); MCHC 31.7 g/dl (32.0-36.0); MEAN CELL VOLUME 94.2 fl (80-96); MEAN PLT VOLUME 8.3 fl (7.5-11.1); NEUT % 60.1 % (42.8-82.8); PLATELET COUNT 260 10^3/uL (134-434); RDW 13.9 % (11.6-15.6); WHITE BLOOD COUNT 7.6 K/mm3 (4.0-10.0)
[2024-09-06 07:59] LABS: POTASSIUM 3.8 mmol/L (3.5-5.1)
[2024-09-06 08:01] LABS: CALCIUM 8.9 mg/dL (8.5-10.1)
[2024-09-06 08:02] LABS: ALBUMIN 3.1 g/dl (3.4-5.0); BLOOD UREA NITROGEN 20.2 mg/dL (7-18); MAGNESIUM 1.8 mg/dL (1.8-2.4)
[2024-09-06 08:05] LABS: CREATININE 0.6 mg/dL (0.55-1.3)
[2024-09-06 08:07] LABS: BILIRUBIN,TOTAL 0.5 mg/dL (0.2-1); TOT PROT 6.8 g/dl (6.4-8.2)
[2024-09-06] MEDS: DOCUSATE SODIUM 100 MG CAPSULE (FP) PO SCH (15:13)
[2024-09-07] MEDS: PANTOPRAZOLE 40 MG TABLET PO SCH (10:08)
[2024-09-07 10:26] LABS: BASO % 0.4 % (0-2.0); EOS % 2.3 % (0-4.5); HEMOGLOBIN 9.9 GM/dL (10.7-15.3); LYMPH % 19.3 % (8-40); MCH 29.8 pg (25.7-33.7); MCHC 31.9 g/dl (32.0-36.0); MEAN CELL VOLUME 93.3 fl (80-96); MEAN PLT VOLUME 8.4 fl (7.5-11.1); MONO % 9.2 % (3.8-10.2); NEUT % 68.8 % (42.8-82.8); PLATELET COUNT 257 10^3/uL (134-434); RBC 3.33 M/mm3 (3.60-5.2); RDW 13.8 % (11.6-15.6); WHITE BLOOD COUNT 8.8 K/mm3 (4.0-10.0)
[2024-09-07 10:49] LABS: POTASSIUM 3.8 mmol/L (3.5-5.1)
[2024-09-07 11:00] LABS: BLOOD UREA NITROGEN 24.3 mg/dL (7-18)
[2024-09-07 11:01] LABS: BILIRUBIN,TOTAL 0.5 mg/dL (0.2-1); TOT PROT 6.8 g/dl (6.4-8.2)
[2024-09-07 11:02] LABS: CALCIUM 8.8 mg/dL (8.5-10.1); MAGNESIUM 1.6 mg/dL (1.8-2.4)
[2024-09-07 11:03] LABS: CREATININE 0.6 mg/dL (0.55-1.3)
[2024-09-07] MEDS: MAGNESIUM 2GM/50ML STERILE WATER IVPB IVPB ONE (14:23)
[2024-09-07 14:54] VITALS: RESP 18
[2024-09-07] MEDS: AMOX TR/POT CLAV 875MG/125MG TABLETS (FP) PO SCH (17:52)
[2024-09-07] MEDS: SENNOSIDES 8.6MG TABLET (FP) PO PRN (21:40)
[2024-09-08] MEDS: LOSARTAN POTASSIUM 50 MG TABLET PO SCH (09:03)
[2024-09-08] MEDS: HYDROCHLOROTHIAZIDE 25 MG TABLET (FP) PO SCH (09:04)
[2024-09-08] MEDS ORDERED: PATIENT'S OWN MEDICATION (NON-FORMULARY) (Losartan/Hydrochlorothiazide [Losartan-Hctz 100- PO SCH (10:00)
[2024-09-08] MEDS ORDERED: FUROSEMIDE 40 MG TABLET (FP) PO SCH (10:00)
[2024-09-08 12:03] VITALS: BP 148/49; PULSE 72; TEMP 97.7
== END 2024-09-08 12:29 | disposition home health service (06) | DRG 291 ==
LOC: JER 16:08 → JERBED 21:58 → J8W 09-04 13:03
PROVIDERS: ADMIT Internal Medicine; ATTEND Nurse Practitioner Acute Care
DX: I11.0 Hypertensive heart disease with heart failure (principal); I50.33 Acute on chronic diastolic (congestive) heart failure; N39.0 Urinary tract infection, site not specified; Z68.41 Body mass index [BMI] 40.0-44.9, adult; I48.91 Unspecified atrial fibrillation; Z79.01 Long term (current) use of anticoagulants; E78.5 Hyperlipidemia, unspecified; J44.9 Chronic obstructive pulmonary disease, unspecified; E66.01 Morbid (severe) obesity due to excess calories; E83.42 Hypomagnesemia
CPT/HCPCS: 0241U-QW; 36415; 71045-TC-FY; 71250-TC; 74176-TC; 80053; 81003; 82962; 83735; 83880; 84100; 84484; 85025; 85027; 85610; 85651; 85730; 86140; 86803; 86850; 86900; 86901; 87086; 87186; 87389; 93005; 93010; 93306-TC; 93970-TC; 97116-GP; 97161-GP; 99285-25; J0131

== ENCOUNTER 2025-02-05 16:55 | Inpatient (IN) | payer BC, OTHER ==
[2025-02-05] MEDS ORDERED: ONDANSETRON 4 MG/2 ML VIAL ONE (19:00)
[2025-02-05] MEDS ORDERED: FAMOTIDINE 20 MG/50 ML IVPB 20 MG/50 ML MG IVPB ONE (19:00)
[2025-02-05] MEDS ORDERED: ACETAMINOPHEN INJECTION 100 ML ONE (19:00)
[2025-02-05 19:03] LABS: ABSOLUTE IMMATURE GRANULOCYTES 0.07 x10^3/uL (0.0-0.031); BASOPHILS # 0.02 x10^3/uL (0.01-0.08); EOSINOPHIL % 0.3 % (0.7-5.8); EOSINOPHILS # 0.03 x10^3/uL (0.04-0.36); HEMOGLOBIN 6.4 g/dL (11.2-15.7); MCHC 26.7 g/dl (32.2-35.5); MEAN CELL VOLUME 73.6 fl (79.4-94.8); MEAN PLT VOLUME 9.7 fl (9.4-12.3); MONOCYTE # 0.56 x10^3/uL (0.24-0.86); MONOCYTE % 4.8 % (4.7-12.5); PLATELET COUNT 276 x10^3/uL (182-369); RDW 17.4 % (12.4-16.6)
[2025-02-05] MEDS: SODIUM CHLORIDE 0.9% 500 ML INFUS.BAG IV ONE (19:18)
[2025-02-05 19:19] LABS: POTASSIUM 3.7 mmol/L (3.5-5.1)
[2025-02-05] MEDS: ACETAMINOPHEN 1000 MG/100 ML BAG IVPB ONE (19:19)
[2025-02-05] MEDS: FAMOTIDINE 20 MG/50 ML IVPB 20 MG/50 ML MG IVPB ONE (19:19)
[2025-02-05] MEDS: ONDANSETRON 4 MG/2 ML VIAL IVPUSH ONE (19:20)
[2025-02-05 19:21] LABS: CALCIUM 9.7 mg/dL (8.5-10.1)
[2025-02-05 19:22] LABS: ALBUMIN 3.5 g/dl (3.4-5.0); BLOOD UREA NITROGEN 19.2 mg/dL (7-18); MAGNESIUM 1.7 mg/dL (1.8-2.4)
[2025-02-05 19:25] LABS: CREATININE 0.6 mg/dL (0.55-1.3)
[2025-02-05 19:26] LABS: BILIRUBIN,TOTAL 0.7 mg/dL (0.2-1); TOT PROT 7.6 g/dl (6.4-8.2)
[2025-02-05] MEDS ORDERED: MORPHINE SULFATE 2 MG/ML SYRINGE ONE (20:48)
[2025-02-05] MEDS: morphine CARPU-JECT 2 MG/1 ML DISP.SYRIN IVPUSH ONE (20:59)
[2025-02-05] MEDS ORDERED: SIMETHICONE 80 MG TAB.CHEW (FP) ONE (21:00)
[2025-02-05] MEDS: SIMETHICONE 80 MG TAB.CHEW (FP) PO ONE (21:02)
[2025-02-05 21:26] LABS: HEMATOCRIT 22.8 % (34.1-44.9); HEMOGLOBIN 6.1 g/dL (11.2-15.7); MCHC 26.8 g/dl (32.2-35.5); MEAN CELL VOLUME 73.5 fl (79.4-94.8); MEAN PLT VOLUME 10.5 fl (9.4-12.3); PLATELET COUNT 273 x10^3/uL (182-369); RDW 17.6 % (12.4-16.6)
[2025-02-05] MEDS ORDERED: LACTATED RINGERS SOLUTION 1,000 ML/1,000 ML INFUS.BAG IV SCH (22:30)
[2025-02-05 23:26] LABS: PH,URINE 5.5 (5.0-8.0); URINE APPEARANCE CLEAR; URINE BILIRUBIN NEGATIVE (NEGATIVE); URINE COLOR YELLOW; URINE GLUCOSE (UA) NEGATIVE (NEGATIVE); URINE KETONE NEGATIVE (NEGATIVE); URINE LEUK ESTERASE 1+ (NEGATIVE); URINE NITRITE NEGATIVE (NEGATIVE); URINE PROTEIN TRACE (NEGATIVE)
[2025-02-06] MEDS: PANTOPRAZOLE SODIUM 40 MG VIAL IVPUSH ONE (03:20)
[2025-02-06] MEDS ORDERED: morphine SULFATE 4 MG/ML VIAL IVPUSH PRN (03:53)
[2025-02-06] MEDS: DOCUSATE SODIUM 100 MG CAPSULE (FP) PO ONE (05:29)
[2025-02-06] MEDS: LACTATED RINGERS SOLUTION 1,000 ML/1,000 ML INFUS.BAG IV SCH ×3 (05:30→19:57)
[2025-02-06] MEDS: MINERAL OIL ENEMA 133 ML ENEMA RC ONE (05:30)
[2025-02-06] MEDS: ACETAMINOPHEN 1000 MG/100 ML BAG IVPB SCH (05:31)
[2025-02-06] MEDS ORDERED: ACETAMINOPHEN 1000 MG/100 ML BAG IVPB PRN (07:05)
[2025-02-06 07:25] VITALS: BMI 54.0
[2025-02-06] MEDS: MAGNESIUM SULFATE IN WATER 2 GM/50 ML IVPB IVPB ONE (07:46)
[2025-02-06 07:57] LABS: BASOPHILS # 0.02 x10^3/uL (0.01-0.08); EOSINOPHIL % 1.4 % (0.7-5.8); EOSINOPHILS # 0.12 x10^3/uL (0.04-0.36); Reticulocyte % 1.88 % (0.5-1.7)
[2025-02-06 07:59] LABS: ABSOLUTE IMMATURE GRANULOCYTES 0.05 x10^3/uL (0.0-0.031); HEMATOCRIT 25.2 % (34.1-44.9); HEMOGLOBIN 7.2 g/dL (11.2-15.7); MCHC 28.6 g/dl (32.2-35.5); MEAN CELL VOLUME 75.2 fl (79.4-94.8); MEAN PLT VOLUME 9.9 fl (9.4-12.3); PLATELET COUNT 250 x10^3/uL (182-369); RDW 17.9 % (12.4-16.6)
[2025-02-06 08:23] LABS: POTASSIUM 3.7 mmol/L (3.5-5.1)
[2025-02-06 08:26] LABS: CALCIUM 8.9 mg/dL (8.5-10.1)
[2025-02-06 08:29] LABS: CREATININE 0.5 mg/dL (0.55-1.3)
[2025-02-06 08:30] LABS: BILIRUBIN,TOTAL 2.3 mg/dL (0.2-1)
[2025-02-06 08:31] LABS: TOT PROT 6.4 g/dl (6.4-8.2)
[2025-02-06 10:15] LABS: MAGNESIUM 1.7 mg/dL (1.8-2.4)
[2025-02-06 10:19] LABS: PHOSPHOROUS 3.8 mg/dL (2.5-4.9)
[2025-02-06] MEDS: DOCUSATE SODIUM 100 MG CAPSULE (FP) PO SCH (10:39)
[2025-02-06] MEDS: amLODIPine BESYLATE 5 MG TABLET (FP) PO SCH (10:39)
[2025-02-06] MEDS: LOSARTAN 50MG/HCTZ 12.5MG 1 TAB PO SCH (10:42)
[2025-02-06] MEDS: PANTOPRAZOLE SODIUM 40 MG VIAL IVPUSH SCH (10:49)
[2025-02-06] MEDS: MAGNESIUM 2GM/50ML STERILE WATER IVPB IVPB ONE (12:16)
[2025-02-06] MEDS: ATORVASTATIN CA 10 MG TABLET (FP) PO SCH (21:27)
[2025-02-07 08:03] LABS: RDW 17.1 % (12.4-16.6)
[2025-02-07 08:05] LABS: ABSOLUTE IMMATURE GRANULOCYTES 0.01 x10^3/uL (0.0-0.031); BASOPHILS # 0.03 x10^3/uL (0.01-0.08); EOSINOPHIL % 5.5 % (0.7-5.8); EOSINOPHILS # 0.28 x10^3/uL (0.04-0.36); HEMATOCRIT 28.4 % (34.1-44.9); HEMOGLOBIN 8.3 g/dL (11.2-15.7); MCHC 29.2 g/dl (32.2-35.5); MEAN CELL VOLUME 75.5 fl (79.4-94.8); MEAN PLT VOLUME 10.6 fl (9.4-12.3); MONOCYTE # 0.48 x10^3/uL (0.24-0.86); MONOCYTE % 9.4 % (4.7-12.5); PLATELET COUNT 186 x10^3/uL (182-369)
[2025-02-07 08:30] LABS: MAGNESIUM 1.8 mg/dL (1.8-2.4)
[2025-02-07 08:32] LABS: PHOSPHOROUS 3.9 mg/dL (2.5-4.9)
[2025-02-07 08:36] LABS: N-TERMINAL BNP 399.7 pg/ml (5-450)
[2025-02-07] MEDS: amLODIPine BESYLATE 5 MG TABLET (FP) PO SCH (09:51)
[2025-02-07 10:49] LABS: EPI CELLS 17 /uL (0-25.1); HYALINE CASTS 0 /uL (0-3.1); PH,URINE 5.5 (5.0-8.0); URINE APPEARANCE CLEAR; URINE BACTERIA 152 /uL (0-1359); URINE BILIRUBIN NEGATIVE (NEGATIVE); URINE COLOR YELLOW; URINE GLUCOSE (UA) NEGATIVE (NEGATIVE); URINE KETONE NEGATIVE (NEGATIVE); URINE LEUK ESTERASE 2+ (NEGATIVE); URINE NITRITE NEGATIVE (NEGATIVE); URINE PROTEIN NEGATIVE (NEGATIVE); URINE RBC 89 /uL (0-23.9); URINE UROBILINOGEN 0.2 mg/dL (0.2-1.0); URINE WBC 50 /uL (0-25.8)
[2025-02-07 16:01] LABS: URINE CRYSTALS NONE SEEN /hpf
[2025-02-07 16:17] LABS: BILIRUBIN,DIRECT 0.2 mg/dL (0.0-0.2)
[2025-02-07 16:18] LABS: BILIRUBIN,TOTAL 0.8 mg/dL (0.2-1)
[2025-02-07] MEDS: IRON SUCROSE INJECTION 100 MG in SODIUM CHLORIDE 95 ML IVPB ONE (22:15)
[2025-02-07] MEDS: MINERAL OIL/PET HY-PHL TOPICAL OINTMENT 454 GM JAR TP SCH (22:16)
[2025-02-08 08:11] LABS: ABSOLUTE IMMATURE GRANULOCYTES 0.02 x10^3/uL (0.0-0.031); BASOPHILS # 0.03 x10^3/uL (0.01-0.08); EOSINOPHIL % 5.9 % (0.7-5.8); EOSINOPHILS # 0.38 x10^3/uL (0.04-0.36); HEMATOCRIT 29.2 % (34.1-44.9); HEMOGLOBIN 8.5 g/dL (11.2-15.7); MCHC 29.1 g/dl (32.2-35.5); MEAN CELL VOLUME 76.6 fl (79.4-94.8); MEAN PLT VOLUME 10.7 fl (9.4-12.3); MONOCYTE # 0.63 x10^3/uL (0.24-0.86); MONOCYTE % 9.8 % (4.7-12.5); PLATELET COUNT 237 x10^3/uL (182-369); RDW 18.2 % (12.4-16.6)
[2025-02-08 08:24] LABS: INR 1.19 (0.83-1.09); PROTHROMBIN TIME (PATIENT) 13.1 SEC (9.7-13.0)
[2025-02-08 08:26] LABS: MAGNESIUM 1.7 mg/dL (1.8-2.4)
[2025-02-08 08:30] LABS: PHOSPHOROUS 4.2 mg/dL (2.5-4.9)
[2025-02-08] MEDS: FUROSEMIDE 40 MG/4 ML INJECTABLE VIAL IVPUSH ONE (11:20)
[2025-02-08 12:41] LABS: POTASSIUM 3.3 mmol/L (3.5-5.1)
[2025-02-08 13:04] LABS: ALBUMIN 3.1 g/dl (3.4-5.0); BLOOD UREA NITROGEN 6.5 mg/dL (7-18); CALCIUM 9.1 mg/dL (8.5-10.1)
[2025-02-08 13:09] LABS: BILIRUBIN,TOTAL 0.6 mg/dL (0.2-1); CREATININE 0.5 mg/dL (0.55-1.3)
[2025-02-08 13:11] LABS: TOT PROT 6.7 g/dl (6.4-8.2)
[2025-02-08 13:13] LABS: N-TERMINAL BNP 566.5 pg/ml (5-450)
[2025-02-08] MEDS: LACTATED RINGERS SOLUTION 1,000 ML/1,000 ML INFUS.BAG IV SCH (14:19)
[2025-02-08] MEDS: MAGNESIUM 2GM/50ML STERILE WATER IVPB IVPB ONE (14:19)
[2025-02-08] MEDS: POTASSIUM CHLORIDE ORAL LIQUID 20 MEQ/15 ML PO ONE (14:19)
[2025-02-09 08:18] LABS: ABSOLUTE IMMATURE GRANULOCYTES 0.03 x10^3/uL (0.0-0.031); BASOPHILS # 0.02 x10^3/uL (0.01-0.08); EOSINOPHIL % 6.5 % (0.7-5.8); EOSINOPHILS # 0.43 x10^3/uL (0.04-0.36); HEMATOCRIT 32.8 % (34.1-44.9); HEMOGLOBIN 9.2 g/dL (11.2-15.7); MEAN CELL VOLUME 78.7 fl (79.4-94.8); MEAN PLT VOLUME 10.4 fl (9.4-12.3); MONOCYTE # 0.58 x10^3/uL (0.24-0.86); MONOCYTE % 8.7 % (4.7-12.5); PLATELET COUNT 251 x10^3/uL (182-369); RDW 20.1 % (12.4-16.6)
[2025-02-09 08:26] LABS: INR 1.26 (0.83-1.09); PROTHROMBIN TIME (PATIENT) 13.7 SEC (9.7-13.0)
[2025-02-09 08:39] LABS: MAGNESIUM 1.8 mg/dL (1.8-2.4)
[2025-02-09 08:42] LABS: PHOSPHOROUS 4.3 mg/dL (2.5-4.9)
[2025-02-09] MEDS: PANTOPRAZOLE 40 MG TABLET PO SCH (09:59)
[2025-02-09] MEDS: amLODIPine BESYLATE 10 MG TABLET (FP) PO SCH (09:59)
[2025-02-09] MEDS: MAGNESIUM OXIDE 400 MG TABLET (FP) PO ONE (10:27)
[2025-02-09 11:14] LABS: POTASSIUM 3.5 mmol/L (3.5-5.1)
[2025-02-09 11:19] LABS: CALCIUM 9.4 mg/dL (8.5-10.1)
[2025-02-09 11:20] LABS: ALBUMIN 3.2 g/dl (3.4-5.0); BLOOD UREA NITROGEN 6.8 mg/dL (7-18)
[2025-02-09 11:24] LABS: CREATININE 0.4 mg/dL (0.55-1.3)
[2025-02-09 11:25] LABS: BILIRUBIN,TOTAL 0.6 mg/dL (0.2-1); TOT PROT 6.7 g/dl (6.4-8.2)
[2025-02-09 15:48] VITALS: BP 155/50; PULSE 71; RESP 20; TEMP 99.1
[2025-02-10 01:08] LABS: VON WILLEBRAND ANTIGEN 156 % (50-200)
== END 2025-02-09 16:32 | disposition short-term general hospital (02) | DRG 439 ==
LOC: JER 16:55 → JERBED 02-06 01:52 → J8W 02-06 03:39
PROVIDERS: ADMIT Internal Medicine; ATTEND Nurse Practitioner Acute Care
DX: K85.10 Biliary acute pancreatitis without necrosis or infection (principal); I48.20 Chronic atrial fibrillation, unspecified; I50.32 Chronic diastolic (congestive) heart failure; Z68.43 Body mass index [BMI] 50.0-59.9, adult; L97.828 Non-pressure chronic ulcer of other part of left lower leg with other specified severity; I11.0 Hypertensive heart disease with heart failure; E11.621 Type 2 diabetes mellitus with foot ulcer; D50.9 Iron deficiency anemia, unspecified; K21.9 Gastro-esophageal reflux disease without esophagitis; I27.20 Pulmonary hypertension, unspecified; F32.A Depression, unspecified; I35.0 Nonrheumatic aortic (valve) stenosis; M48.00 Spinal stenosis, site unspecified; E66.01 Morbid (severe) obesity due to excess calories; E78.5 Hyperlipidemia, unspecified; J44.9 Chronic obstructive pulmonary disease, unspecified; E11.622 Type 2 diabetes mellitus with other skin ulcer; Z86.718 Personal history of other venous thrombosis and embolism
CPT/HCPCS: 36415; 36430; 71045-TC-FY; 74177-TC; 76705-TC; 80053; 80061; 81003; 82247; 82248; 82550; 82728; 83010; 83036; 83540; 83550; 83605; 83615; 83690; 83735; 83880; 84100; 84439; 84443; 84484; 85025; 85027; 85246; 85247; 85610; 86850; 86900; 86901; 86922; 87040; 87086; 93005; 93010; 93306-TC; 97161-GP; 99285-25; J1756; P9058; Q9967